=== PATIENT | female | born 1965 | race Caucasian/White ===

== ENCOUNTER 2016-11-01 19:18 | Emergency (ER) | payer OTHER ==
[~2016-11-01] VITALS: Ht 165.1 cm; Wt 53.0 kg
[~2016-11-01 19:18] MED LIST: BACL10TA PO; FENT25DI TD; FLUO20SO3 PO; HYDR10TA16 PO; NEUR100C PO; PERC10TA27 PO; XANA1TAB6 PO
[2016-11-01 19:27] VITALS: BP 150/81; PULSE 81; RESP 16; TEMP 98.2; O2SAT 98
--- NOTE | 2016-11-01 20:04 | PD ---
HPI Chief Complaint: Psychiatric Symptoms Time Seen by Provider: 20:03 Travel History International Travel<30 days: No Contact w/Intl Traveler<30days: No Traveled to known affect area: No History of Present Illness HPI 51-year-old female with history of MS presents to [facility] for evaluation under Nails act. Patient states she has been increasingly depressed and frustrated as her MS progressively gets worse. She is followed by Dr. Jones and has tried a new medication that helped for 2-3 days. She is waiting for the medication again and her symptoms continue to worsen. Dr. Jones is aware. Patient states that today she tried to drink some alcohol and she did some cocaine. She states that she had just become "fed up" and wanted to end her life. She states that she is tired of being in pain. She has been taking her pain medications more often and they are ordered. States that this is to control her pain not an attempt to overdose. Does not have an active plan for suicide at this time. She has no other symptoms to report. PFSH Past Medical History Arthritis: No Autoimmune Disease: No Blood Disorders: No Anxiety: Yes Depression: Yes Heart Rhythm Problems: No Cancer: No Cardiovascular Problems: No High Cholesterol: No Chemotherapy: No Chest Pain: No Congestive Heart Failure: No Diabetes: No Diminished Hearing: No Endocrine: No Gastrointestinal Disorders: No Genitourinary: No Hiatal Hernia: No Hypertension: No Immune Disorder: No Implanted Vascular Access Dvce: No Kidney Stones: No Medical other: Yes (PT HAS MULTIPLE SCLEROSIS) Musculoskeletal: Yes (ARTHRITIS; NECK AND BACK PAIN) Neurologic: Yes (MS 2008) Psychiatric: No Reproductive: Yes (SALPINGOECTOMY(ECTOPIC PREG)) Respiratory: No Immunizations Current: No Myocardial Infarction: No Pneumonia: Yes Radiation Therapy: No Renal Failure: Yes (stage 2 decrease kidney funtion) Sickle Cell Disease: No Thyroid Disease: No Tetanus Vaccination: Unknown Influenza Vaccination: No ?: Not Menopausal: Yes : 2 Para: 0 Miscarriage: 1 : 1 Ectopic : Yes (1 ectopic, 1 miscarriage) Dilation and Curettage (D&C): No Tubal Ligation: Yes (TUBAL ) Past Surgical History AICD: No Body Medical Devices: PLATE NECK Gynecologic Surgery: Yes (ECTOPIC PREG ) Neurologic Surgery: Yes (ANTERIOR CERVICAL FUSION) Pacemaker: No Other Surgery: Yes (NECK SURGERY 2 MONTHS AGO) Social History Alcohol Use: No Tobacco Use: Yes (1 PPD ) Substance Use: Yes (hx cocaine use) Allergies-Medications (Allergen,Severity, Reaction): Coded Allergies: *MDRO Multi-Drug Resistant Organism (Verified Allergy, Unknown, 11/01/16) MRSA 2012 & 2013 Reported Meds & Prescriptions Reported Meds & Active Scripts Active Reported Valium (Diazepam) 10 Mg Tab 10 Mg PO HS PRN Wellbutrin SR 12 HR (Bupropion HCl) 150 Mg Tab 150 Mg PO Q12HR Ritalin LA 24 HR (Methylphenidate HCl) 10 Mg Caper 10 Mg PO DAILY Lortab (Hydrocodone-Acetaminophen) 10-325 Mg Tab 1 Tab PO Q4H PRN Gabapentin 300 Mg Cap 200 Mg PO HS Prozac (Fluoxetine HCl) 40 Mg Cap 40 Mg PO HS Fentanyl Patch 72 HR (Fentanyl) 25 Mcg/Hr Patch 25 Mcg T-DERMAL Q72H Baclofen 10 Mg Tab 10 Mg PO Q8HR PRN Xanax (Alprazolam) 1 Mg Tab 1 Mg PO Q6H PRN Review of Systems Except as stated in HPI: all other systems reviewed are Neg Physical Exam Narrative GENERAL: Well-nourished female patient, lying in bed in no acute distress SKIN: Warm and dry. HEAD: Atraumatic. Normocephalic. EYES: Pupils equal and round. No scleral icterus. No injection or drainage. ENT: No nasal bleeding or discharge. Mucous membranes pink and moist. NECK: Trachea midline. No JVD. CARDIOVASCULAR: Regular rate and rhythm. No murmur appreciated. RESPIRATORY: No accessory muscle use. Clear to auscultation. Breath sounds equal bilaterally. GASTROINTESTINAL: Abdomen soft, non-tender, nondistended. Hepatic and splenic margins not palpable. MUSCULOSKELETAL: No obvious deformities. No clubbing. No cyanosis. No edema. NEUROLOGICAL: Awake and alert. No obvious cranial nerve deficits. . Normal speech. Data Data Last Documented VS Vital Signs Date Time Temp Pulse Resp B/P Pulse Ox O2 Delivery O2 Flow Rate FiO2 11/02/16 02:00 81 20 124/78 98 Room Air 11/01/16 22:56 98.5 Orders Complete Blood Count With Diff (11/01/16 20:02) Basic Metabolic Panel (Bmp) (11/01/16 20:02) Urinalysis - C+S If Indicated (11/01/16 20:02) Psych Screen (11/01/16 20:02) Drug Screen, Random Urine (11/01/16 20:02) Alcohol (Ethanol) (11/01/16 20:02) Bismuth Liq (Pepto-Bismol Liq) (11/01/16 22:00) Potassium Chloride (Kcl) (11/01/16 22:00) Ondansetron Odt (Zofran Odt) (11/01/16 22:30) Diet Regular Basic (11/02/16 Breakfast) Labs Laboratory Tests Test 11/01/16 20:15 White Blood Count 5.2 TH/MM3 Red Blood Count 3.54 MIL/MM3 Hemoglobin 11.0 GM/DL Hematocrit 31.6 % Mean Corpuscular Volume 89.4 FL Mean Corpuscular Hemoglobin 31.2 PG Mean Corpuscular Hemoglobin 34.9 % Concent Red Cell Distribution Width 14.1 % Platelet Count 316 TH/MM3 Mean Platelet Volume 7.1 FL Neutrophils (%) (Auto) 70.6 % Lymphocytes (%) (Auto) 21.0 % Monocytes (%) (Auto) 5.7 % Eosinophils (%) (Auto) 2.3 % Basophils (%) (Auto) 0.4 % Neutrophils # (Auto) 3.7 TH/MM3 Lymphocytes # (Auto) 1.1 TH/MM3 Monocytes # (Auto) 0.3 TH/MM3 Eosinophils # (Auto) 0.1 TH/MM3 Basophils # (Auto) 0.0 TH/MM3 CBC Comment DIFF FINAL Differential Comment Urine Color LIGHT-YELLOW Urine Turbidity CLEAR Urine pH 8.0 Urine Specific [place] 1.004 Urine Protein NEG mg/dL Urine Glucose (UA) NEG mg/dL Urine Ketones NEG mg/dL Urine Occult Blood NEG Urine Nitrite NEG Urine Bilirubin NEG Urine Urobilinogen LESS THAN 2.0 MG/DL Urine Leukocyte Esterase NEG Urine WBC LESS THAN 1 /hpf Urine Squamous Epithelial 1 /hpf Cells Microscopic Urinalysis Comment CULT NOT INDICATED Sodium Level 137 MEQ/L Potassium Level 3.0 MEQ/L Chloride Level 101 MEQ/L Carbon Dioxide Level 27.5 MEQ/L Anion Gap 9 MEQ/L Blood Urea Nitrogen 6 MG/DL Creatinine 0.80 MG/DL Estimat Glomerular Filtration 75 ML/MIN Rate Random Glucose 97 MG/DL Calcium Level 8.3 MG/DL Urine Opiates Screen NEG Urine Barbiturates Screen NEG Urine Amphetamines Screen NEG Urine Benzodiazepines Screen POS Urine Cocaine Screen POS Urine Cannabinoids Screen NEG Ethyl Alcohol Level LESS THAN 3 MG/DL MDM Medical Decision Making Medical Screen Exam Complete: Yes Emergency Medical Condition: Yes Medical Record Reviewed: Yes Differential Diagnosis Mood disorder versus personality disorder versus adjustment reaction disorder Narrative Course 51-year-old female presents to the emergency department under Nails act for psychiatric evaluation. Patient appears without distress. Lab work is without acute concern. Patient does have hypokalemia 3.0 this is repleted here in the emergency department. Toxicology is positive for cocaine and benzodiazepine. Urinalysis is negative. Patient is medically cleared to undergo psychiatric screening for further evaluation and disposition. Mental health screening discussed with the patient. Psychiatric screen ordered. Diagnosis Primary Impression: Adjustment disorder with depressed mood Additional Impressions: Suicidal thoughts Multiple sclerosis Condition: Stable Izabel Ren Nov 01, 2016 20:03
[2016-11-01 20:54] LABS: BLOOD, URINE NEG (NEG); GLUCOSE,URINE NEG (NEG); KETONE, URINE NEG (NEG); NITRITE,URINE NEG (NEG); SQUAMOUS EPITHELIAL CELL URINE 1 /hpf (0-5); URINE COLOR LIGHT-YELLOW (YELLW/STRAW)
[2016-11-01 20:55] LABS: COMMENT (UR) CULT NOT INDICATED; CULTURE IF INDICATED CULT NOT INDICATED
[2016-11-01 21:00] LABS: AMPHETAMINE, URINE NEG (NEG); BARBITURATES, URINE NEG (NEG); COCAINE, URINE POS (NEG)
[2016-11-01 21:14] LABS: AUTOMATED NEUTROPHIL # 3.7 TH/MM3 (1.8-7.7); BASOPHIL % 0.4 % (0.0-2.0); EOSINOPHIL # 0.1 TH/MM3 (0-0.4); EOSINOPHIL % 2.3 % (0.0-4.0); HEMATOCRIT 31.6 % (35.0-46.0); HEMO FLAGS DIFF FINAL; LYMPHOCYTE # 1.1 TH/MM3 (1.0-4.8); MEAN CELL VOLUME 89.4 FL (80.0-100.0); MEAN CORPUSCULAR HEMOGLOBIN 31.2 PG (27.0-34.0); MEAN CORPUSCULAR HGB CONC 34.9 % (32.0-36.0); MONO % 5.7 % (0.0-8.0); NEUT % 70.6 % (16.0-70.0); PLATELET COUNT 316 TH/MM3 (150-450); RED BLOOD COUNT 3.54 MIL/MM3 (4.00-5.30); RED CELL DISTRIBUTION WIDTH 14.1 % (11.6-17.2); WHITE BLOOD COUNT 5.2 TH/MM3 (4.0-11.0)
[2016-11-01 21:20] LABS: CHLORIDE 101 MEQ/L (98-107); SODIUM (NA) 137 MEQ/L (136-145)
[2016-11-01 21:33] LABS: ANION GAP 9 MEQ/L (5-15); BICARBONATE 27.5 MEQ/L (21.0-32.0); BLOOD UREA NITROGEN 6 MG/DL (7-18); GLOMERULAR FILTRATION RATE 75 ML/MIN (>89)
[2016-11-01] MEDS ORDERED: BISMUTH SUBSALICYLATE 240 ML BTL PO ONE (22:00)
[2016-11-01] MEDS ORDERED: POTASSIUM CHLORIDE 10 MEQ CONTROLLED RELEASE TAB PO ONE (22:00)
[2016-11-01 22:12] VITALS: BP 124/87; PULSE 92; RESP 16; TEMP 98.5; O2SAT 97
[2016-11-01] MEDS ORDERED: ONDANSETRON ODT 4 MG TAB PO ONE (22:30)
[2016-11-01] MEDS ORDERED: HYDR-3535 PO (22:54)
[2016-11-01] MEDS ORDERED: RITA10CA PO (22:54)
[2016-11-01] MEDS ORDERED: GABA300C5 PO (22:54)
[2016-11-01] MEDS ORDERED: FENT25DI T-DERMAL (22:54)
[2016-11-01] MEDS ORDERED: PROZ40CA PO (22:54)
[2016-11-01] MEDS ORDERED: BACL10TA PO (22:54)
[2016-11-01] MEDS ORDERED: DIAZ10 PO (22:54)
[2016-11-01] MEDS ORDERED: BUPR150CR PO (22:54)
[2016-11-01] MEDS ORDERED: XANA1TAB2 PO (22:54)
[2016-11-01 22:56] VITALS: BP 137/82; PULSE 83; RESP 19; TEMP 98.5; O2SAT 98
[2016-11-02 02:00] VITALS: BP 124/78; PULSE 81; RESP 20; O2SAT 98
[2016-11-02 06:16] VITALS: BP 133/75; PULSE 86; RESP 18; O2SAT 98
[2016-11-02 10:36] VITALS: BP 137/66; PULSE 87; RESP 17; O2SAT 95
--- NOTE | 2016-11-02 13:33 | PD ---
History of Present Illness Chief Complaint: Psychiatric Symptoms Time Seen by Provider: 12:30 Travel History International Travel<30 Days: No Contact w/Intl Traveler<30days: No Known affected area: No Legal Status Legal Status: Nails Act Nails Act Signed By: Afua Goldsmith Nails Act Comment: 2016 @ 183 History of Present Illness: History of Present Illness HPI 51-year-old female with history of depression and anxiety, currently under outpatient care with Dr. Harrington, who MS presents to ED under Nails act. As per the reports" Sheela took several narcotics in an attempt to kill herself". Patient is seen in [facility]. She has presented no behavioral concerns and no suicidality. She states that she has been having increase in symptoms associated with a MS flare up . She has been under a new medication but became frustrated when she was not feeling better. She admits to having taken extra medication but denies that it was as an intent to harm herself. States " I snapped and I took extra medication but I wasn't trying to hurt myself". I called my sister and then I called the police". Patient goes on to say that she has been attempting to get back into counseling as well as in a support group to help her cope better with her chronic illness. She is alert, oriented, engaging and cooperative. No hallucinations, no delusions and no fátima. She denies suicidal or homicidal ideation. Mood is depressed and anxious. Patient is positive for cocaine and benzos. As per EMR she was evaluated by Dr. Arnold in 2013 after she was placed under a BA s/p overdose on Valium. She has had no inpatient psychiatric hospitalizations. [facility] Past Medical History Arthritis: No Autoimmune Disease: No Blood Disorders: No Anxiety: Yes Depression: Yes Heart Rhythm Problems: No Cancer: No Cardiovascular Problems: No High Cholesterol: No Chemotherapy: No Chest Pain: No Congestive Heart Failure: No Diabetes: No Diminished Hearing: No Endocrine: No Gastrointestinal Disorders: No Genitourinary: No Hiatal Hernia: No Hypertension: No Immune Disorder: No Implanted Vascular Access Dvce: No Kidney Stones: No Medical other: Yes (PT HAS MULTIPLE SCLEROSIS) Musculoskeletal: Yes (ARTHRITIS; NECK AND BACK PAIN) Neurologic: Yes (MS 2008) Psychiatric: No Reproductive: Yes (SALPINGOECTOMY(ECTOPIC PREG)) Respiratory: No Immunizations Current: No Myocardial Infarction: No Pneumonia: Yes Radiation Therapy: No Renal Failure: Yes (stage 2 decrease kidney funtion) Sickle Cell Disease: No Thyroid Disease: No Tetanus Vaccination: Unknown Influenza Vaccination: No ?: Not Menopausal: Yes : 2 Para: 0 Miscarriage: 1 : 1 Ectopic : Yes (1 ectopic, 1 miscarriage) Dilation and Curettage (D&C): No Tubal Ligation: Yes (TUBAL ) Past Surgical History AICD: No Body Medical Devices: PLATE NECK Gynecologic Surgery: Yes (ECTOPIC PREG ) Neurologic Surgery: Yes (ANTERIOR CERVICAL FUSION) Pacemaker: No Other Surgery: Yes (NECK SURGERY 2 MONTHS AGO) Psychiatric History Psychiatric History Hx Psychiatric Treatment: In outpatietn treatment w Dr. Harrington History of Inpatient Treatment: No Guns or firearms in home: No Social History Single female . Lives by herself Hx Alcohol Use: No Hx Tobacco Use: Yes (1 PPD ) Hx Substance Use: Yes (hx cocaine use) Substance Use Type: Benzos (Valium,Xanax), Cocaine Hx of Substance Use Treatment: No Family Psychiatric History Negative Allergies-Medications (Allergen,Severity, Reaction): Coded Allergies: *MDRO Multi-Drug Resistant Organism (Verified Allergy, Unknown, 11/01/16) MRSA 2012 & 2013 Reported Meds & Prescriptions Reported Meds & Active Scripts Active Reported Valium (Diazepam) 10 Mg Tab 10 Mg PO HS PRN Wellbutrin SR 12 HR (Bupropion HCl) 150 Mg Tab 150 Mg PO Q12HR Ritalin LA 24 HR (Methylphenidate HCl) 10 Mg Caper 10 Mg PO DAILY Lortab (Hydrocodone-Acetaminophen) 10-325 Mg Tab 1 Tab PO Q4H PRN Gabapentin 300 Mg Cap 200 Mg PO HS Prozac (Fluoxetine HCl) 40 Mg Cap 40 Mg PO HS Fentanyl Patch 72 HR (Fentanyl) 25 Mcg/Hr Patch 25 Mcg T-DERMAL Q72H Baclofen 10 Mg Tab 10 Mg PO Q8HR PRN Xanax (Alprazolam) 1 Mg Tab 1 Mg PO Q6H PRN Review of Systems Constitutional: COMPLAINS OF: Weight loss Endocrine: DENIES: Abnorml menstrual pattern, Heat/cold intolerance, Polydipsia , Polyuria, Polyphagia Eyes: DENIES: Blurred vision, Diplopia, Eye inflammation, Eye pain, Vision loss , Photosensitivity, Double Vision Ears, nose, mouth, throat: DENIES: Tinnitus, Hearing loss, Vertigo, Nasal discharge, Oral lesions, Throat pain, Hoarseness, Ear Pain, Running Nose, Epistaxis, Sinus Pain, Toothache, Odynophagia Respiratory: DENIES: Apneas, Cough, Snoring, Wheezing, Hemoptysis, Sputum production, Shortness of breath Cardiovascular: DENIES: Chest pain, Palpitations, Syncope, Dyspnea on Exertion , PND, Lower Extremity Edema, Orthopnea, Claudication Gastrointestinal: DENIES: Abdominal pain, Black stools, Bloody stools, Constipation, Diarrhea, Nausea, Vomiting, Difficulty Swallowing, Anorexia Genitourinary: DENIES: Abnormal vaginal bleeding, Dysmenorrhea, Dyspareunia, Sexual dysfunction, Urinary frequency, Urinary incontinence, Urgency, Hematuria , Dysuria, Nocturia, Vaginal discharge Musculoskeletal: COMPLAINS OF: Muscle aches, Back pain, Neck pain Integumentary: DENIES: Abnormal pigmentation, Pruritus, Rash, Nail changes, Breast masses, Breast skin changes, Nipple discharge Hematologic/lymphatic: DENIES: Bruising, Lymphadenopathy Neurologic: COMPLAINS OF: Tremor, Poor Balance Psychiatric: COMPLAINS OF: Anxiety, Depression Exam Alert: Yes [place]: Person (ox4) Mood: Anxious Affect: Euthymic Speech: Clear, Logical Eye Contact: Normal Memory Intact: Comment (no impairmetn) Hallucinations: Other (negative) Delusions: No Suicidal: Ideation (denies any) Homicidal: Ideation (denies any) Insight/Judgement Fair. Not impaired. [facility] Medical Decision Making Medical Record Reviewed: Yes Assessment/Plan 51 year old female under a BA . She called the police after she took extra medication in an effort to manage her pain. Patient at this time is denying that this was a suicidal attempt and denies any suicidal ideation, intent or plan. She requests discharge and has made plans to contact Dr. nikkie beasley upon her discharge. She will also be staying with her boyfriend. At this time she does not meet BA criteria. Patient will be discharged w instructions to follow up with her outpatient provider. I have contacted Dr. Beasley with patient's verbal consent to inform him of this ed visit. Orders Complete Blood Count With Diff (11/01/16 20:02) Basic Metabolic Panel (Bmp) (11/01/16 20:02) Urinalysis - C+S If Indicated (11/01/16 20:02) Psych Screen (11/01/16 20:02) Drug Screen, Random Urine (11/01/16 20:02) Alcohol (Ethanol) (11/01/16 20:02) Bismuth Liq (Pepto-Bismol Liq) (11/01/16 22:00) Potassium Chloride (Kcl) (11/01/16 22:00) Ondansetron Odt (Zofran Odt) (11/01/16 22:30) Diet Regular Basic (11/02/16 Breakfast) Diet Regular Basic (11/02/16 Lunch) Results Vital Signs Date Time Temp Pulse Resp B/P Pulse Ox O2 Delivery O2 Flow Rate FiO2 11/02/16 10:36 87 17 137/66 95 11/02/16 06:16 86 18 133/75 98 Room Air 11/02/16 02:00 81 20 124/78 98 Room Air 11/01/16 22:56 98.5 83 19 137/82 98 Room Air 11/01/16 22:12 98.5 92 16 124/87 97 Room Air 11/01/16 19:27 98.2 81 16 150/81 98 Laboratory Tests Test 11/01/16 20:15 White Blood Count 5.2 Red Blood Count 3.54 Hemoglobin 11.0 Hematocrit 31.6 Mean Corpuscular Volume 89.4 Mean Corpuscular Hemoglobin 31.2 Mean Corpuscular Hemoglobin 34.9 Concent Red Cell Distribution Width 14.1 Platelet Count 316 Mean Platelet Volume 7.1 Neutrophils (%) (Auto) 70.6 Lymphocytes (%) (Auto) 21.0 Monocytes (%) (Auto) 5.7 Eosinophils (%) (Auto) 2.3 Basophils (%) (Auto) 0.4 Neutrophils # (Auto) 3.7 Lymphocytes # (Auto) 1.1 Monocytes # (Auto) 0.3 Eosinophils # (Auto) 0.1 Basophils # (Auto) 0.0 CBC Comment DIFF FINAL Differential Comment Urine Color LIGHT-YELLOW Urine Turbidity CLEAR Urine pH 8.0 Urine Specific [place] 1.004 Urine Protein NEG Urine Glucose (UA) NEG Urine Ketones NEG Urine Occult Blood NEG Urine Nitrite NEG Urine Bilirubin NEG Urine Urobilinogen LESS THAN 2.0 Urine Leukocyte Esterase NEG Urine WBC LESS THAN 1 Urine Squamous Epithelial 1 Cells Microscopic Urinalysis Comment CULT NOT INDICATED Sodium Level 137 Potassium Level 3.0 Chloride Level 101 Carbon Dioxide Level 27.5 Anion Gap 9 Blood Urea Nitrogen 6 Creatinine 0.80 Estimat Glomerular Filtration 75 Rate Random Glucose 97 Calcium Level 8.3 Urine Opiates Screen NEG Urine Barbiturates Screen NEG Urine Amphetamines Screen NEG Urine Benzodiazepines Screen POS Urine Cocaine Screen POS Urine Cannabinoids Screen NEG Ethyl Alcohol Level LESS THAN 3 Diagnosis Primary Impression: Adjustment disorder with depressed mood Additional Impression: Multiple sclerosis Ruled Out: Suicidal thoughts Psychiatrically Cleared: Yes Referrals: Otto Gilbert MD (PCP) Departure Forms: Tests/Procedures Patient Instructions: General Instructions, Stress (ED) Additional Instructions: FOLLOW UP WITH YOUR CURRENT TREATMENT PROVIDERS Disposition: 01 DISCHARGE HOME Condition: Stable Problem Qualifiers Ivy Landry Nov 02, 2016 13:33
== END 2016-11-02 13:49 | disposition home or self-care (01) ==
LOC: NEPB 19:18 → NEPJ 11-02 13:49
DX: F43.21 Adjustment disorder with depressed mood (principal); G35 Multiple sclerosis; E87.6 Hypokalemia; F17.200 Nicotine dependence, unspecified, uncomplicated; Z87.39 Personal history of other diseases of the musculoskeletal system and connective tissue; Z87.01 Personal history of pneumonia (recurrent); Z86.59 Personal history of other mental and behavioral disorders; Z87.448 Personal history of other diseases of urinary system
CPT/HCPCS: 80048; 80307; 80320; 81001; 85025; 99283

== ENCOUNTER 2017-02-23 08:52 | Emergency (ER) | payer OTHER ==
[~2017-02-23] VITALS: Ht 165.1 cm; Wt 53.8 kg
[~2017-02-23 08:52] MED LIST changes: +BUPR150CR PO; +DIAZ10 PO; +FENT25DI T-DERMAL; -FENT25DI TD; -FLUO20SO3 PO; +GABA300C5 PO; +HYDR-3535 PO; -NEUR100C PO; -PERC10TA27 PO; +PROZ40CA PO; +RITA10CA PO; +XANA1TAB2 PO; -XANA1TAB6 PO
[2017-02-23 08:57] VITALS: BP 150/81; PULSE 86; RESP 16; TEMP 98.4; O2SAT 98
--- NOTE | 2017-02-23 09:20 | PD ---
HPI Chief Complaint: Musculoskeletal Complaint Time Seen by Provider: 09:02 Travel History International Travel<30 days: No Contact w/Intl Traveler<30days: No Traveled to known affect area: No History of Present Illness HPI 51 y/o female presents with right lower groin pain over past couple days. She notes with her MS typical hesitancy with urination but denies other complaints. pain is pressure. denies modifying factors. denies std risk factors. notes no improvement with home pain meds. denies migration of pain. PFSH Past Medical History Arthritis: No Autoimmune Disease: No Blood Disorders: No Anxiety: Yes Depression: Yes Heart Rhythm Problems: No Cancer: No Cardiovascular Problems: No High Cholesterol: No Chemotherapy: No Chest Pain: No Congestive Heart Failure: No Diabetes: No Diminished Hearing: No Endocrine: No Gastrointestinal Disorders: No Genitourinary: No Hiatal Hernia: No Hypertension: No Immune Disorder: No Implanted Vascular Access Dvce: No Kidney Stones: No Medical other: Yes (PT HAS MULTIPLE SCLEROSIS) Musculoskeletal: Yes (ARTHRITIS; NECK AND BACK PAIN) Neurologic: Yes (MS 2007) Psychiatric: No Reproductive: Yes (SALPINGOECTOMY(ECTOPIC PREG)) Respiratory: No Immunizations Current: No Myocardial Infarction: No Pneumonia: Yes Radiation Therapy: No Renal Failure: Yes (stage 2 decrease kidney funtion) Sickle Cell Disease: No Thyroid Disease: No ?: Not Menopausal: Yes : 2 Para: 0 Miscarriage: 1 : 1 Ectopic : Yes (1 ectopic, 1 miscarriage) Dilation and Curettage (D&C): No Tubal Ligation: Yes (TUBAL ) Past Surgical History AICD: No Body Medical Devices: PLATE NECK Gynecologic Surgery: Yes (ECTOPIC PREG ) Neurologic Surgery: Yes (ANTERIOR CERVICAL FUSION) Pacemaker: No Other Surgery: Yes (NECK SURGERY 2 MONTHS AGO) Social History Alcohol Use: No Tobacco Use: Yes (1 PPD ) Substance Use: Yes (hx cocaine use) Allergies-Medications (Allergen,Severity, Reaction): Coded Allergies: *MDRO Multi-Drug Resistant Organism (Verified Allergy, Unknown, 02/23/17) MRSA 2012 & 2013 Reported Meds & Prescriptions Reported Meds & Active Scripts Active Reported Valium (Diazepam) 10 Mg Tab 10 Mg PO HS PRN Wellbutrin SR 12 HR (Bupropion HCl) 150 Mg Tab 150 Mg PO Q12HR Lortab (Hydrocodone-Acetaminophen) 10-325 Mg Tab 1 Tab PO Q4H PRN Gabapentin 300 Mg Cap 200 Mg PO HS Prozac (Fluoxetine HCl) 40 Mg Cap 40 Mg PO HS Fentanyl Patch 72 HR (Fentanyl) 25 Mcg/Hr Patch 25 Mcg T-DERMAL Q72H Baclofen 10 Mg Tab 10 Mg PO Q8HR PRN Xanax (Alprazolam) 1 Mg Tab 1 Mg PO Q6H PRN Review of Systems Except as stated in HPI: all other systems reviewed are Neg Physical Exam Narrative GENERAL: Well-nourished, well-developed patient. well appearing SKIN: Warm and dry. HEAD: Normocephalic and atraumatic. EYES: No injection or drainage. ENT: No nasal drainage noted. NECK: Supple, trachea midline. CARDIOVASCULAR: Regular rate and rhythm RESPIRATORY: no increased effort. No accessory muscle use. GASTROINTESTINAL: Abdomen soft, ttp in right lower abdomen of pelvis, nondistended. EXTREMITIES: No edema. NEUROLOGICAL: Awake and alert. Motor and sensory grossly within normal limits. Normal speech. Data Data Last Documented VS Vital Signs Date Time Temp Pulse Resp B/P Pulse Ox O2 Delivery O2 Flow Rate FiO2 02/23/17 08:57 98.4 86 16 150/81 98 Orders Urinalysis - C+S If Indicated (02/23/17 09:08) Ct Abd/Pel W/O Iv Contrast (02/23/17 ) Ketorolac Inj (Toradol Inj) (02/23/17 09:30) Labs Laboratory Tests Test 02/23/17 09:15 Urine Collection Type CLEAN CATCH Urine Color YELLOW Urine Turbidity CLEAR Urine pH 5.5 Urine Specific [place] 1.006 Urine Protein NEG mg/dL Urine Glucose (UA) NEG mg/dL Urine Ketones NEG mg/dL Urine Occult Blood NEG Urine Nitrite NEG Urine Bilirubin NEG Urine Leukocyte Esterase NEG Urine WBC 0-2 /hpf Urine Squamous Epithelial > 8 /hpf Cells Microscopic Urinalysis Comment CULT NOT INDICATED Urine Collection Time 09:15 [facility] Medical Decision Making Medical Screen Exam Complete: Yes Emergency Medical Condition: Yes Medical Record Reviewed: Yes (pmh confirmed) Interpretation(s) ct no acute intra-abdominal, lumbar degenerative changes-given copy ua no uti or blood Differential Diagnosis strain, uti, stone, cyst... Narrative Course will check ua, ct and dose with toradol and reeval ed workup no acute, Patient denies any new complaints, all questions answered. Patient knows that follow up is incumbent on them and to return to the emergency room immediately if new or worsening symptoms develop. Patient given strict return precautions, vitals reviewed and are normal, agrees to further workup as an outpatient. given copy of ct for follow up Diagnosis Primary Impression: Abdominal pain Qualified Code: R10.31 - Right lower quadrant abdominal pain Patient Instructions: General Instructions Additional Instructions: return as needed, follow with primary Med/Other Pt SpecificInfo: No Change to Meds Disposition: 01 DISCHARGE HOME Condition: Stable Ciera Pollock MD Feb 23, 2017 09:20
[2017-02-23] MEDS ORDERED: KETOROLAC TROMETHAMINE 60 MG/2 ML (IM) VIAL IM ONE (09:30)
[2017-02-23 09:36] LABS: BLOOD, URINE NEG (NEG); GLUCOSE,URINE NEG (NEG); KETONE, URINE NEG (NEG); NITRITE,URINE NEG (NEG); PH, URINE 5.5 (5.0-8.5)
[2017-02-23 09:44] LABS: METHOD OF COLLECTION CLEAN CATCH; URINE COLOR YELLOW (YELLW/STRAW)
[2017-02-23 09:45] LABS: SQUAMOUS EPITHELIAL CELL URINE > 8 /hpf (0-5); WBC, URINE 0-2 /hpf (0-5)
[2017-02-23 09:46] LABS: COMMENT (UR) CULT NOT INDICATED; CULTURE IF INDICATED CULT NOT INDICATED
--- NOTE | 2017-02-23 10:31 | RADHPO ---
EXAM DATE/TIME: 02/23/2017 09:33 [place] COMPARISON: No previous studies available for comparison. INDICATIONS : Right groin pain, evaluate for renal stones. ORAL CONTRAST: No oral contrast ingested. RADIATION DOSE: 6.39 CTDIvol (mGy) MEDICAL HISTORY : None SURGICAL HISTORY : Tubal ligation. ENCOUNTER: Initial ACUITY: 1 week PAIN SCALE: 3/10 LOCATION: Right lower quadrant TECHNIQUE: Volumetric scanning of the abdomen and pelvis was performed. Using automated exposure control and ad justment of the mA and/or kV according to patient size, radiation dose was kept as low as reasonably achievable to obtain optimal diagnostic quality images. FINDINGS: LOWER LUNGS: The visualized lower lungs are clear. LIVER: Homogeneous density without lesion. There is no dilation of the biliary tree. No calcified gallston es. SPLEEN: Normal size without lesion. PANCREAS: Within normal limits. KIDNEYS: Normal in size and shape. There is no mass, stone, or hydronephrosis. ADRENAL GLANDS: Within normal limits. VASCULAR: There is no aortic aneurysm. BOWEL/MESENTERY: No evidence of bowel dilatation. No free air or free fluid. Appendix within normal limits. ABDOMINAL WALL: Within normal limits. RETROPERITONEUM: There is no lymphadenopathy. BLADDER: No wall thickening or mass. REPRODUCTIVE: Within normal limits. INGUINAL: There is no lymphadenopathy or hernia. MUSCULOSKELETAL: Moderate bony degenerative findings of the lower lumbar spine facet joints. CONCLUSION: Degenerative findings of the lumbar spine. No acute findings in the abdomen and pelvis. No renal or u reteral calculi identified. No hydronephrosis. Jose Rosales MD on February 23, 2017 at 10:25 Board Certified Radiologist. This report was verified electronically.
== END 2017-02-23 11:03 | disposition home or self-care (01) ==
LOC: PHED 08:52
DX: R10.31 Right lower quadrant pain (principal); R39.11 Hesitancy of micturition; G35 Multiple sclerosis; N18.2 Chronic kidney disease, stage 2 (mild); F17.200 Nicotine dependence, unspecified, uncomplicated; Z86.59 Personal history of other mental and behavioral disorders; Z87.39 Personal history of other diseases of the musculoskeletal system and connective tissue
CPT/HCPCS: 74176; 81001; 96372; 99285; J1885

== ENCOUNTER 2017-06-19 13:37 | Emergency (ER) | payer OTHER ==
[~2017-06-19] VITALS: Ht 170.2 cm; Wt 70.0 kg
[~2017-06-19 13:37] MED LIST changes: -RITA10CA PO
[2017-06-19 13:46] VITALS: BP 128/86; PULSE 97; RESP 16; TEMP 99.1; O2SAT 97
[2017-06-19] MEDS ORDERED: FENT25DI T-DERMAL (14:00)
[2017-06-19] MEDS ORDERED: ACETAMINOPHEN/HYDROcodone 325 MG/5 MG TAB PO ONE (14:00)
[2017-06-19] MEDS ORDERED: TYLETAB34 PO (14:00)
--- NOTE | 2017-06-19 14:08 | PD ---
HPI Chief Complaint: Medication Refill Request Time Seen by Provider: 13:43 Travel History International Travel<30 days: No Contact w/Intl Traveler<30days: No Traveled to known affect area: No History of Present Illness HPI The patient was seen and examined in the presence of the nurse. This patient complains of leg pain. She's had chronic leg pain for many years due to MS. She takes heavy-duty narcotics and says that she lost them a few days ago. She says she put a call to Dr. Jones who prescribes but no one returned her call. No acute injury or fever. She called paramedics who brought her to the emergency room. Severity is reported as moderate. PFSH Past Medical History Arthritis: No Autoimmune Disease: No Blood Disorders: No Anxiety: Yes Depression: Yes Heart Rhythm Problems: No Cancer: No Cardiovascular Problems: No High Cholesterol: No Chemotherapy: No Chest Pain: No Congestive Heart Failure: No Diabetes: No Diminished Hearing: No Endocrine: No Gastrointestinal Disorders: No Genitourinary: No Hiatal Hernia: No Hypertension: No Immune Disorder: No Implanted Vascular Access Dvce: No Kidney Stones: No Medical other: Yes (PT HAS MULTIPLE SCLEROSIS) Musculoskeletal: Yes (ARTHRITIS; NECK AND BACK PAIN) Neurologic: Yes (MS 2008) Psychiatric: No Reproductive: Yes (SALPINGOECTOMY(ECTOPIC PREG)) Respiratory: No Immunizations Current: No Myocardial Infarction: No Pneumonia: Yes Radiation Therapy: No Renal Failure: Yes (stage 2 decrease kidney funtion) Sickle Cell Disease: No Thyroid Disease: No Tetanus Vaccination: < 5 Years Influenza Vaccination: No ?: Not Menopausal: Yes : 2 Para: 0 Miscarriage: 1 : 1 Ectopic : Yes (1 ectopic, 1 miscarriage) Dilation and Curettage (D&C): No Tubal Ligation: Yes Past Surgical History AICD: No Body Medical Devices: PLATE NECK Gynecologic Surgery: Yes (ECTOPIC PREG ) Neurologic Surgery: Yes (ANTERIOR CERVICAL FUSION) Pacemaker: No Other Surgery: Yes (NECK SURGERY X2) Social History Alcohol Use: No Tobacco Use: Yes (09/27 PPD ) Substance Use: Yes (hx cocaine use) Allergies-Medications (Allergen,Severity, Reaction): Coded Allergies: *MDRO Multi-Drug Resistant Organism (Verified Allergy, Unknown, 06/19/17) MRSA 2012 & 2013 Reported Meds & Prescriptions Reported Meds & Active Scripts Active Tylenol-Codeine #3 (Acetaminophen-Codeine) 300-30 mg Tab 1 Tab PO Q6HR PRN Fentanyl Patch 72 HR (Fentanyl) 25 Mcg/Hr Patch 25 Mcg T-DERMAL Q72H Reported Valium (Diazepam) 10 Mg Tab 10 Mg PO HS PRN Wellbutrin SR 12 HR (Bupropion HCl) 150 Mg Tab 150 Mg PO Q12HR Lortab (Hydrocodone-Acetaminophen) 10-325 Mg Tab 1 Tab PO Q4H PRN Gabapentin 300 Mg Cap 200 Mg PO HS Prozac (Fluoxetine HCl) 40 Mg Cap 40 Mg PO HS Fentanyl Patch 72 HR (Fentanyl) 25 Mcg/Hr Patch 25 Mcg T-DERMAL Q72H Baclofen 10 Mg Tab 10 Mg PO Q8HR PRN Xanax (Alprazolam) 1 Mg Tab 1 Mg PO Q6H PRN Review of Systems General / Constitutional: No: Fever HENT: No: Headaches Cardiovascular: No: Chest Pain or Discomfort Respiratory: No: Cough Physical Exam Narrative Gen.: Disheveled unhappy thin female complaining of leg pain GASTROINTESTINAL: Abdomen soft, non-tender, nondistended. Positive bowel sounds. No hepato-splenomegaly, or palpable masses. No guarding. RESPIRATORY: Respiratory effort unlabored, no retractions or use of accessory muscles. Breath sounds are clear and symmetric. SKIN: Focused skin assessment reveals no rash or ulcers. Skin is warm and dry. Palpation shows no induration or nodules. Data Data Last Documented VS Vital Signs Date Time Temp Pulse Resp B/P (MAP) Pulse Ox O2 Delivery O2 Flow Rate FiO2 06/19/17 13:46 99.1 97 16 128/86 (100) 97 Orders Orders Acetamin-Hydrocod 325-5 Mg ([place] 5-325 (06/19/17 14:00) [facility] Medical Decision Making Medical Screen Exam Complete: Yes Emergency Medical Condition: Yes Medical Record Reviewed: Yes Differential Diagnosis Chronic pain syndrome, MS exacerbation, narcotic seeking behavior Narrative Course I have reviewed the patient's electronic medical record. Reviewed her recent hematology visit from a few weeks ago. Her vital signs are normal. She is having chronic leg pain and says she lost her narcotic medication. Going to write her 1 fentanyl patch and a dozen Tylenol 3 She'll need to get refills from her physician Diagnosis Primary Impression: Chronic leg pain Qualified Codes: M79.604 - Pain in right leg; M79.605 - Pain in left leg; G89.29 - Other chronic pain Additional Impression: Multiple sclerosis Additional Instructions: The patient was advised to follow up with their physician and return if they worsen. The patient was warned about potential sedation for the medications they will receive on prescription. Med/Other Pt SpecificInfo: Prescription(s) given Scripts Acetaminophen-Codeine (Tylenol-Codeine #3) 300-30 mg Tab 1 TAB PO Q6HR Y for PAIN, #12 TAB 0 Refills Prov: Edwardo Mooney MD 06/19/17 Fentanyl Patch 72 HR (Fentanyl Patch 72 HR) 25 Mcg/Hr Patch 25 MCG T-DERMAL Q72H for Pain Management, #1 PATCH 0 Refills Prov: Edwardo Mooney MD 06/19/17 Disposition: 01 DISCHARGE HOME Condition: Stable Edwardo Mooney MD Jun 19, 2017 14:08
[2017-06-19 14:20] VITALS: BP 103/65; PULSE 83; RESP 16; O2SAT 96
[2017-06-19 14:45] VITALS: BP 108/80; PULSE 78; RESP 14; O2SAT 98
== END 2017-06-19 15:05 | disposition home or self-care (01) ==
LOC: PHED 13:37
DX: M79.604 Pain in right leg (principal); M79.605 Pain in left leg; G89.29 Other chronic pain; G35 Multiple sclerosis; N19 Unspecified kidney failure; F17.200 Nicotine dependence, unspecified, uncomplicated; Z86.59 Personal history of other mental and behavioral disorders; Z87.39 Personal history of other diseases of the musculoskeletal system and connective tissue; Z86.69 Personal history of other diseases of the nervous system and sense organs
CPT/HCPCS: 99284

== ENCOUNTER 2017-10-12 15:15 | Emergency (ER) | payer OTHER, MEDICAID ==
[~2017-10-12] VITALS: Ht 165.1 cm; Wt 53.0 kg
[~2017-10-12 15:15] MED LIST changes: -BUPR150CR PO; +TYLETAB34 PO
[2017-10-12 15:27] VITALS: BP 114/69; PULSE 77; RESP 16; TEMP 99; O2SAT 96
[2017-10-12] MEDS ORDERED: HYDR-3583 PO (15:41)
[2017-10-12] MEDS ORDERED: BUPR300T PO (15:41)
[2017-10-12] MEDS ORDERED: RITA20TA PO (15:41)
[2017-10-12] MEDS ORDERED: FENT50DI T-DERMAL (15:41)
[2017-10-12] MEDS ORDERED: SODIUM CHLORIDE 0.9% FLUSH 10 ML FLUSH IVF PRN (16:00)
--- NOTE | 2017-10-12 16:00 | PD ---
HPI Chief Complaint: Fall Time Seen by Provider: 15:25 Travel History International Travel<30 days: No Contact w/Intl Traveler<30days: No Traveled to known affect area: No History of Present Illness HPI Patient states that she has been feeling shaky for the past few days about 0800 today she got shaky in the bathroom lost her balance in fell forward hitting her head. She states "I was not conscious for about an hour". She states she is very shaky has a history of MS, denies any focalized weakness, she states she also has a history of low back pain in his do for her chronic pain medicine which as her Lortab. Denies any chest pain shortness of breath abdominal pain nausea vomiting. She complains of a mild headache but the low back pain which as chronic for her as her chief complaint at this time. Denies any chest pain or loss of consciousness prior to the event. PFSH Past Medical History Anemia: Yes (chronic) Arthritis: No Autoimmune Disease: No Blood Disorders: No Anxiety: Yes Depression: Yes Heart Rhythm Problems: No Cancer: No Cardiovascular Problems: No High Cholesterol: No Chemotherapy: No Chest Pain: No Congestive Heart Failure: No Diabetes: No Diminished Hearing: No Endocrine: No Gastrointestinal Disorders: No Genitourinary: No Hiatal Hernia: No Hypertension: No Immune Disorder: No Implanted Vascular Access Dvce: No Kidney Stones: No Medical other: Yes (PT HAS MULTIPLE SCLEROSIS) Musculoskeletal: Yes (ARTHRITIS; NECK AND BACK PAIN) Neurologic: Yes (MS 2008) Psychiatric: No Reproductive: Yes (SALPINGOECTOMY(ECTOPIC PREG)) Respiratory: No Immunizations Current: No Myocardial Infarction: No Pneumonia: Yes Radiation Therapy: No Renal Failure: Yes (stage 2- decrease kidney funtion; denies) Sickle Cell Disease: No Thyroid Disease: No ?: Not Menopausal: Yes : 2 Para: 0 Miscarriage: 1 : 1 Ectopic : Yes (1 ectopic, 1 miscarriage) Tubal Ligation: Yes Past Surgical History AICD: No Body Medical Devices: PLATE NECK Gynecologic Surgery: Yes (ECTOPIC PREG ) Neurologic Surgery: Yes (ANTERIOR CERVICAL FUSION) Pacemaker: No Other Surgery: Yes (NECK SURGERY X2) Social History Alcohol Use: No Tobacco Use: Yes (09/27 PPD ) Substance Use: Yes (hx cocaine use) Allergies-Medications (Allergen,Severity, Reaction): Coded Allergies: *MDRO Multi-Drug Resistant Organism (Verified Allergy, Unknown, 10/12/17) MRSA 2012 & 2014 Reported Meds & Prescriptions Reported Meds & Active Scripts Active Reported Fentanyl Patch 72 HR (Fentanyl) 50 Mcg/Hr Patch 50 Mcg T-DERMAL Q72H Remove old patch when new one placed. Hydrocodone-Acetaminophen 10-325 mg Tab 1 Tab PO Q6H PRN Bupropion HCl ER 24 HR (Bupropion HCl) 300 Mg Tab 300 Mg PO DAILY Ritalin IR (Methylphenidate HCl) 20 Mg Tab 20 Mg PO DAILY Valium (Diazepam) 10 Mg Tab 10 Mg PO HS PRN Gabapentin 300 Mg Cap 400 Mg PO HS Prozac (Fluoxetine HCl) 40 Mg Cap 40 Mg PO HS Baclofen 10 Mg Tab 10 Mg PO Q8HR PRN Xanax (Alprazolam) 1 Mg Tab 1 Mg PO Q6H PRN Review of Systems Except as stated in HPI: all other systems reviewed are Neg Physical Exam Narrative GENERAL: Well-developed well-nourished in no obvious distress. SKIN: Focused skin assessment warm/dry. HEAD: Atraumatic. Normocephalic. No avnedaño signs no raccoons eyes, I do not appreciate a frontal hematoma. EYES: Pupils equal and round. No scleral icterus. No injection or drainage. ENT: No nasal bleeding or discharge. Mucous membranes pink and moist. NECK: Trachea midline. No JVD. CARDIOVASCULAR: Regular rate and rhythm. No murmur appreciated. RESPIRATORY: No accessory muscle use. Clear to auscultation. Breath sounds equal bilaterally. GASTROINTESTINAL: Abdomen soft, non-tender, nondistended. Hepatic and splenic margins not palpable. MUSCULOSKELETAL: No obvious deformities. No clubbing. No cyanosis. No edema. No midline CT or L-spine tenderness. NEUROLOGICAL: Awake and alert. No obvious cranial nerve deficits. Motor grossly within normal limits. Normal speech. PSYCHIATRIC: Very anxious, odd affect. Denies suicidal homicidal ideation. Data Data Last Documented VS Vital Signs Date Time Temp Pulse Resp B/P (MAP) Pulse Ox O2 Delivery O2 Flow Rate FiO2 10/12/17 15:27 99.0 77 16 114/69 (84) 96 Orders Orders Electrocardiogram (10/12/17 15:46) Basic Metabolic Panel (Bmp) (10/12/17 15:46) Complete Blood Count With Diff (10/12/17 15:46) Troponin I (1/19/18 15:46) Ct Brain W/O Iv Contrast(Rout) (10/12/17 15:46) Ct Cerv Spine W/O Contrast (10/12/17 15:46) Ecg Monitoring (10/12/17 15:46) Iv Access Insert/Monitor (10/12/17 15:46) Oximetry (10/12/17 15:46) Sodium Chloride 0.9% Flush (Ns Flush) (10/12/17 16:00) Acetamin-Hydrocod 325-5 Mg ([place] 5-325 (10/12/17 17:00) Ed Discharge Order (10/12/17 17:07) Labs Laboratory Tests Test 10/12/17 15:54 White Blood Count 9.5 TH/MM3 Red Blood Count 3.56 MIL/MM3 Hemoglobin 11.1 GM/DL Hematocrit 33.0 % Mean Corpuscular Volume 92.7 FL Mean Corpuscular Hemoglobin 31.1 PG Mean Corpuscular Hemoglobin Concent 33.5 % Red Cell Distribution Width 14.5 % Platelet Count 367 TH/MM3 Mean Platelet Volume 6.5 FL Neutrophils (%) (Auto) 73.2 % Lymphocytes (%) (Auto) 20.4 % Monocytes (%) (Auto) 4.0 % Eosinophils (%) (Auto) 1.8 % Basophils (%) (Auto) 0.6 % Neutrophils # (Auto) 6.9 TH/MM3 Lymphocytes # (Auto) 1.9 TH/MM3 Monocytes # (Auto) 0.4 TH/MM3 Eosinophils # (Auto) 0.2 TH/MM3 Basophils # (Auto) 0.1 TH/MM3 CBC Comment DIFF FINAL Differential Comment Blood Urea Nitrogen 12 MG/DL Creatinine 1.71 MG/DL Random Glucose 106 MG/DL Calcium Level 8.8 MG/DL Sodium Level 136 MEQ/L Potassium Level 4.5 MEQ/L Chloride Level 102 MEQ/L Carbon Dioxide Level 28.3 MEQ/L Anion Gap 6 MEQ/L Estimat Glomerular Filtration Rate 31 ML/MIN Troponin I LESS THAN 0.02 NG/ML MDM Medical Decision Making Medical Screen Exam Complete: Yes Emergency Medical Condition: Yes Differential Diagnosis Closed head injury, syncope, psychosis, MS, Narrative Course Patient roomed in the emergency department. Last [address] 10/12/17 1700 Signed Impressions: Service Date/Time: Thursday, October 12, 2017 16:15 - CONCLUSION: Normal examination. Jersey Brown MD Cervical Spine CT 10/12/17 1546 Signed Impressions: Service Date/Time: Thursday, October 12, 2017 16:15 - CONCLUSION: Stable CT scan of the cervical spine. No acute bony injury. Remote postsurgical and degenerative changes as described. Jersey Brown MD No indication for imaging of the patient's spine, initial workup with blood work EKG negative. Patient states she would do for her normal Lortab, for her lower back pain. I have ordered her Lortab, she turned nursing away stating that she did not want pain medication she had at home. I do not appreciate any indication for increasing the patient's pain regimen at this time. She kicked the nurse out of her room angrily. When I went to reexamine the patient she states that she was going to leave now, when I asked what else I could do for her she said "fire that bitch" referring to her nurse. She was unable to be counseled further and eloped from the emergency department. Diagnosis Primary Impression: Closed head injury Additional Impression: Chronic back pain Disposition: 01 DISCHARGE HOME Condition: Stable Mynor Urbina MD Oct 12, 2017 16:00
[2017-10-12 16:14] LABS: AUTOMATED NEUTROPHIL # 6.9 TH/MM3 (1.8-7.7); BASOPHIL # 0.1 TH/MM3 (0-0.2); BASOPHIL % 0.6 % (0.0-2.0); EOSINOPHIL # 0.2 TH/MM3 (0-0.4); EOSINOPHIL % 1.8 % (0.0-4.0); HEMOGLOBIN 11.1 GM/DL (11.6-15.3); LYMPH % 20.4 % (9.0-44.0); LYMPHOCYTE # 1.9 TH/MM3 (1.0-4.8); MEAN CELL VOLUME 92.7 FL (80.0-100.0); MEAN CORPUSCULAR HEMOGLOBIN 31.1 PG (27.0-34.0); MEAN CORPUSCULAR HGB CONC 33.5 % (32.0-36.0); MEAN PLATELET VOLUME 6.5 FL (7.0-11.0); MONOCYTE # 0.4 TH/MM3 (0-0.9); NEUT % 73.2 % (16.0-70.0); PLATELET COUNT 367 TH/MM3 (150-450); RED BLOOD COUNT 3.56 MIL/MM3 (4.00-5.30); RED CELL DISTRIBUTION WIDTH 14.5 % (11.6-17.2); WHITE BLOOD COUNT 9.5 TH/MM3 (4.0-11.0)
--- NOTE | 2017-10-12 16:23 | RADRPT ---
EXAM DATE/TIME: 10/12/2017 16:15 [facility] COMPARISON: No previous studies available for comparison. INDICATIONS : Head pain due to fall. RADIATION DOSE: 29.53 CTDIvol (mGy) MEDICAL HISTORY : Renal failure, acute. SURGICAL HISTORY : Tubal ligation. ENCOUNTER: Initial ACUITY: 1 day PAIN SCALE: 7/10 LOCATION: Bilateral cranial TECHNIQUE: Multiple contiguous axial images were obtained of the head. Using automated exposure control and adj ustment of the mA and/or kV according to patient size, radiation dose was kept as low as reasonably a chievable to obtain optimal diagnostic quality images. DICOM format image data is available electro nically for review and comparison. FINDINGS: CEREBRUM: The ventricles are normal for age. No evidence of midline shift, mass lesion, hemorrhage or acute in farction. No extra-axial fluid collections are seen. POSTERIOR FOSSA: The cerebellum and brainstem are intact. The 4th ventricle is midline. The cerebellopontine angle i s unremarkable. EXTRACRANIAL: The visualized portion of the orbits is intact. SKULL: The calvaria is intact. No evidence of skull fracture. CONCLUSION: Normal examination. Jersey Brown MD on October 12, 2017 at 16:19 Board Certified Radiologist. This report was verified electronically.
[2017-10-12 16:42] LABS: BICARBONATE 28.3 MEQ/L (21.0-32.0); BLOOD UREA NITROGEN 12 MG/DL (7-18); CALCIUM 8.8 MG/DL (8.5-10.1); CHLORIDE 102 MEQ/L (98-107); CREATININE 1.71 MG/DL (0.50-1.00); GLOMERULAR FILTRATION RATE 31 ML/MIN (>89); GLUCOSE,RANDOM 106 MG/DL (74-106); SODIUM (NA) 136 MEQ/L (136-145)
--- NOTE | 2017-10-12 16:43 | RADRPT ---
EXAM DATE/TIME: 10/12/2017 16:15 [facility] COMPARISON: CT CERVICAL SPINE W/O CONTRAST, June 06, 2014, 10:29. INDICATIONS : Neck pain due to fall. RADIATION DOSE: 16.68 CTDIvol (mGy) MEDICAL HISTORY : Renal failure, acute. SURGICAL HISTORY : Tubal ligation. Fusion, cervical. ENCOUNTER: Initial ACUITY: 1 day PAIN SCALE: 7/10 LOCATION: Bilateral lower back region. TECHNIQUE: Volumetric scanning of the cervical spine was performed. Multiplanar reconstructions in the sagittal, coronal and oblique axial planes were performed. Using automated exposure control and adjustment o f the mA and/or kV according to patient size, radiation dose was kept as low as reasonably achievable to obtain optimal diagnostic quality images. DICOM format image data is available electronically f or review and comparison. FINDINGS: Cervical spine is stable relative to prior examination with remote fusion C5-6 and extensive degenera tive change C6-7 with anterior cervical fusion plate in place C7-T1. Alignment is unchanged minimally to effaces C4 on C5 and C3 on 4. Spurring appreciated. Bony structures are otherwise intact no acute bony injury, compression, or destructive change. There are lateral mass facet arthritic changes mult ilevel. CONCLUSION: Stable CT scan of the cervical spine. No acute bony injury. Remote postsurgical and degenerative gr ges as described. Jersey Brown MD on October 12, 2017 at 16:37 Board Certified Radiologist. This report was verified electronically.
[2017-10-12 16:49] LABS: TROPONIN I LESS THAN 0.02 NG/ML (0.02-0.05)
[2017-10-12] MEDS ORDERED: ACETAMINOPHEN/HYDROcodone 325 MG/5 MG TAB PO ONE (17:00)
--- NOTE | 2017-10-13 14:56 | EKG ---
Date Performed: 10/12/2017 Time Performed: 15:33:03 PTAGE: 52 years EKG: Sinus rhythm POSSIBLE LEFT ATRIAL ENLARGEMENT POSSIBLE RIGHT VENTRICULAR CONDUCTION DELAY BORDERLINE ECG Since PREVIOUS TRACING , no significant change noted PREVIOUS TRACIN08/11/2015 14.33 DOCTOR: Norman Rush Interpretating Date/Time 10/13/2017 14:56:32
== END 2017-10-12 17:24 | disposition home or self-care (01) ==
LOC: NEPE 15:15
DX: S09.90XA Unspecified injury of head, initial encounter (principal); M54.5 Low back pain; G89.29 Other chronic pain; R94.31 Abnormal electrocardiogram [ECG] [EKG]; G35 Multiple sclerosis; F32.9 Major depressive disorder, single episode, unspecified; M19.90 Unspecified osteoarthritis, unspecified site; F17.210 Nicotine dependence, cigarettes, uncomplicated; W19.XXXA Unspecified fall, initial encounter; Y92.002 Bathroom of unspecified non-institutional (private) residence as the place of occurrence of the external cause; Z79.899 Other long term (current) drug therapy
CPT/HCPCS: 70450; 72125; 80048; 84484; 85025; 93005; 99285

== ENCOUNTER 2018-05-14 10:22 | Inpatient (IN) ==
--- NOTE | 2018-05-14 11:01 | ED ---
HPI General Chief Complaint: Extremity Injury, Lower Stated Complaint: Evac/Fall Time Seen by Provider: 05/14/18 10:34 Source: patient and EMS Mode of arrival: EMS Limitations: altered mental status History of Present Illness HPI Narrative: 52-year-old female patient with history of MS, chronic pain, presents to the ER today brought in by EMS from assisted care facility with suspected fall, patient does not remember how and when, they think that it happened last night, complaining of left hip pain which she currently states is a 10 out of 10. She states that she had tried to take Xanax for the pain because she had ran out of her pain medications. She currently denies any chest pains, trouble breathing, or other issues. However, she is disoriented, does not remember exactly what happened. Related Data Home Medications Medication Instructions Recorded Confirmed Unable to Obtain Home Meds 05/14/18 05/14/18 Allergies Allergy/AdvReac Type Severity Reaction Status Date / Time *MDRO Multi-Drug Resistant Allergy Unknown Uncoded 10/12/17 15:32 Organism Review of Systems ROS Unobtainable ROS Unobtainable: unobtainable due to mental status [facility] Medical History Medical History Multiple sclerosis (Acute) Surgical history unknown (Acute) Social History Social History Substance History: Unable to Obtain Second Hand Smoke Exposure: No Smoking Status: Unknown if ever smoked How Often Do You Have a Drink Containing Alcohol: Unable to Obtain Recent Travel in [facility] within the Last 8 Weeks: No Recent Out of Country Travel within the Last 8 Weeks: No Immunization History Tetanus Immunization: Unable to Assess Hx Influenza Vaccine This Season: Unable to Assess Exam Narrative Exam Narrative: GENERAL: Well-developed middle-age female patient currently in moderate distress. Awake, disoriented. SKIN: Focused skin assessment warm/dry. HEAD: Atraumatic. Normocephalic. EYES: Pupils equal and round. No scleral icterus. No injection or drainage. ENT: No nasal bleeding or discharge. Mucous membranes pink and moist. NECK: Trachea midline. No JVD. Supple. CARDIOVASCULAR: Regular rate and rhythm. No murmur appreciated. RESPIRATORY: No accessory muscle use. Clear to auscultation. Breath sounds equal bilaterally. GASTROINTESTINAL: Abdomen soft, non-tender, nondistended. Hepatic and splenic margins not palpable. MUSCULOSKELETAL: No obvious deformities. No clubbing. No cyanosis. No edema. NEUROLOGICAL: Awake and disoriented. No obvious cranial nerve deficits. Motor grossly within normal limits. Slurred speech. PSYCHIATRIC: Disoriented; insight and judgment poor. Course Initial Documented Vital Signs Temperature 98.2 F 05/14/18 10:29 Pulse Rate 106 H 05/14/18 10:29 Respiratory Rate 15 05/14/18 10:29 Blood Pressure 130/74 05/14/18 10:29 Pulse Oximetry 97 05/14/18 10:29 Last Documented Vital Signs Temperature 98.2 F 05/14/18 10:29 Pulse Rate 106 H 05/14/18 10:29 Respiratory Rate 15 05/14/18 10:29 Blood Pressure 130/74 05/14/18 10:29 Pulse Oximetry 99 05/14/18 13:16 Medical Decision Making MDM Narrative Medical decision making narrative: X-ray shows left humeral neck fracture. CT the brain did not show any signs of acute intracranial processes. Vital signs are stable in the ER. Lab work was fairly unremarkable. Case is discussed with Dr. García who would like a CT of the femur for further evaluation, wants patient to be admitted to medicine. Case was discussed with Dr. Heart for admission. Medical Screen Exam Complete: Yes Emergency Medical Condition: Yes Differential Diagnosis Differential Diagnosis: Hip fracture versus dislocation, medication side effects versus dehydration versus electrolyte abnormalities versus acute intracranial injuries Lab Data Lab results reviewed: Yes I reviewed the patient's lab results. Result diagrams: 05/14/18 10:50 05/14/18 10:50 Lab Results 05/14/18 05/14/18 05/14/18 Range/Units 10:50 10:50 10:50 WBC 7.1 (4.0-11.0) th/mm3 RBC 2.86 L (4.00-5.30) mil/mm3 Hgb 9.0 L (11.6-15.3) gm/dL Hct 26.1 L (35.0-46.0) % MCV 91.3 (80.0-100.0) fL MCH 31.5 (27.0-34.0) pg MCHC 34.5 (32.0-36.0) % RDW 13.4 (11.6-17.2) % Plt Count 298 (150-450) th/mm3 MPV 7.2 (7.0-11.0) fL Neut % (Auto) 87.8 H (16.0-70.0) % Lymph % (Auto) 6.9 L (9.0-44.0) % Terrell % (Auto) 5.1 (0.0-8.0) % Eos % (Auto) 0.0 (0.0-4.0) % Baso % (Auto) 0.2 (0.0-2.0) % Neut # (Auto) 6.3 (1.8-7.7) th/mm3 Lymph # (Auto) 0.5 L (1.0-4.8) th/mm3 Terrell # (Auto) 0.4 (0.0-0.9) th/mm3 Eos # (Auto) 0.0 (0.0-0.4) th/mm3 Baso # (Auto) 0.0 (0.0-0.2) th/mm3 WBC Differential . Differential Comment Auto diff final PT 10.8 (9.8-11.6) sec INR 1.1 Ratio Sodium 127 L (136-145) meq/L Potassium 4.1 (3.5-5.1) meq/L Chloride 97 L (98-107) meq/L Carbon Dioxide 22.3 (21.0-32.0) meq/L Anion Gap 8 (5-15) meq/L BUN 11 (7-18) mg/dL Creatinine 0.99 (0.50-1.00) mg/dL Estimated GFR 58 L (>89) mL/min Random Glucose 113 H (74-106) mg/dL Calcium 8.0 L (8.5-10.1) mg/dL Total Bilirubin 0.8 (0.2-1.0) mg/dL AST 27 (15-37) U/L ALT 22 (10-53) U/L Alkaline Phosphatase 62 (45-117) U/L Ammonia (11-32) mcmol/L Total Creatine Kinase 316 H (26-192) U/L CK-MB (CK-2) 1.3 (0.5-3.6) ng/mL CK-MB (CK-2) % 0.4 (0.0-4.0) % Troponin I Less than 0.02 L (0.02-0.05) ng/mL Total Protein 6.8 (6.4-8.2) g/dL Albumin 3.4 (3.4-5.0) g/dL Urine Color (Yellw/Straw) Urine Clarity (Clear) Urine pH (5.0-8.5) Ur Specific Viola (1.002-1.035) Urine Protein (Neg-Trace) mg/dL Urine Glucose (UA) (Negative) mg/dL Urine Ketones (Negative) mg/dL Urine Occult Blood (Negative) Urine Nitrate (Negative) Urine Bilirubin (Negative) Urine Urobilinogen (Less than 2) mg/dL Ur Leukocyte Esterase (Negative) Urine RBC (0-3) /hpf Micro UA Comment Urine Culture Comments Urine Opiates Screen (Neg) Ur Barbiturates Screen (Neg) Ur Amphetamines Screen (Neg) U Benzodiazepines Scrn (Neg) Urine Cocaine Screen (Neg) U Cannabinoids Screen (Neg) Serum Alcohol Less than 3 (0-5) mg/dL 05/14/18 05/14/18 05/14/18 Range/Units 10:50 10:50 10:50 WBC (4.0-11.0) th/mm3 RBC (4.00-5.30) mil/mm3 Hgb (11.6-15.3) gm/dL Hct (35.0-46.0) % MCV (80.0-100.0) fL MCH (27.0-34.0) pg MCHC (32.0-36.0) % RDW (11.6-17.2) % Plt Count (150-450) th/mm3 MPV (7.0-11.0) fL Neut % (Auto) (16.0-70.0) % Lymph % (Auto) (9.0-44.0) % Terrell % (Auto) (0.0-8.0) % Eos % (Auto) (0.0-4.0) % Baso % (Auto) (0.0-2.0) % Neut # (Auto) (1.8-7.7) th/mm3 Lymph # (Auto) (1.0-4.8) th/mm3 Terrell # (Auto) (0.0-0.9) th/mm3 Eos # (Auto) (0.0-0.4) th/mm3 Baso # (Auto) (0.0-0.2) th/mm3 WBC Differential Differential Comment PT (9.8-11.6) sec INR Ratio Sodium (136-145) meq/L Potassium (3.5-5.1) meq/L Chloride (98-107) meq/L Carbon Dioxide (21.0-32.0) meq/L Anion Gap (5-15) meq/L BUN (7-18) mg/dL Creatinine (0.50-1.00) mg/dL Estimated GFR (>89) mL/min Random Glucose (74-106) mg/dL Calcium (8.5-10.1) mg/dL Total Bilirubin (0.2-1.0) mg/dL AST (15-37) U/L ALT (10-53) U/L Alkaline Phosphatase (45-117) U/L Ammonia Less than 10 L (11-32) mcmol/L Total Creatine Kinase (26-192) U/L CK-MB (CK-2) (0.5-3.6) ng/mL CK-MB (CK-2) % (0.0-4.0) % Troponin I (0.02-0.05) ng/mL Total Protein (6.4-8.2) g/dL Albumin (3.4-5.0) g/dL Urine Color Yellow (Yellw/Straw) Urine Clarity Clear (Clear) Urine pH 6.0 (5.0-8.5) Ur Specific Viola 1.008 (1.002-1.035) Urine Protein Negative (Neg-Trace) mg/dL Urine Glucose (UA) Negative (Negative) mg/dL Urine Ketones Negative (Negative) mg/dL Urine Occult Blood Negative (Negative) Urine Nitrate Negative (Negative) Urine Bilirubin Negative (Negative) Urine Urobilinogen Less than 2 (Less than 2) mg/dL Ur Leukocyte Esterase Negative (Negative) Urine RBC 1 (0-3) /hpf Micro UA Comment Cath-culture not ind Urine Culture Comments Cath-cult not ind Urine Opiates Screen Neg (Neg) Ur Barbiturates Screen Neg (Neg) Ur Amphetamines Screen Neg (Neg) U Benzodiazepines Scrn Pos H (Neg) Urine Cocaine Screen Neg (Neg) U Cannabinoids Screen Neg (Neg) Serum Alcohol (0-5) mg/dL Imaging Data Attestation: I personally reviewed and interpreted this imaging study as follows : Radiologist's impression: Chest X-Ray 05/14/18 10:34 CONCLUSION: No acute cardiopulmonary abnormality is identified. Lungs are underinflated with mild subsegmental atelectasis at the bases. Head CT 05/14/18 10:34 CONCLUSION: Unremarkable study. Pelvis X-Ray 05/14/18 10:34 CONCLUSION: Mildly comminuted and displaced left intertrochanteric femur fracture. Discharge Plan Discharge Disposition Patient Disposition: 30 Still Patient Discharge Condition Condition: Stable Discharge Details Anticipated Discharge Date: 05/14/18 Diagnosis: Fracture of femur, Altered mental state Physicians Team ED Provider: Ronald Jorgensen Primary Care Provider: KYRA, Attending Provider: Lai Heart Other Providers: Lee Hurd Status ED Status: Admitted Patient
--- NOTE | 2018-05-14 11:05 | CT ---
EXAM DATE: 05/14/2018 11:00 AM EDT AGE/SEX: 52 years / Female INDICATIONS: Trauma. Fell yesterday. Altered mental status. CLINICAL DATA: This is the patient's initial encounter. Patient reports that signs and symptoms have been present for 1 day and indicates a pain score of 5/10. MEDICAL/SURGICAL HISTORY: Multiple sclerosis. None. RADIATION DOSE: 30.28 CTDI (mGy) COMPARISON: [facility] [place], 10/12/2017. . TECHNIQUE: CT of the head without contrast. Using automated exposure control and adjustment of the mA and/or kV according to patient size, radiation dose was kept as low as reasonably achievable to ob tain optimal diagnostic quality images. DICOM format image data is available electronically for revi ew and comparison. FINDINGS: There is no evidence for intracranial hemorrhage, mass effect, mass lesions, edema, or extra-axial fl uid collections. The visualized bony structures appear intact. The ventricles are normal size for t he patient's age. There are no signs of acute infarction for technique. CONCLUSION: Unremarkable study. Electronically signed by: Bassam Nj MD 05/14/2018 11:04 AM EDT
[2018-05-14 11:09] LABS: Baso % (Auto) 0.2 % (0.0-2.0); Hematocrit 26.1 % (35.0-46.0); Lymph # (Auto) 0.5 th/mm3 (1.0-4.8); Lymph % (Auto) 6.9 % (9.0-44.0); Mean Corpuscular HGB Conc 34.5 % (32.0-36.0); Mean Corpuscular Hemoglobin 31.5 pg (27.0-34.0); Mean Corpuscular Volume 91.3 fL (80.0-100.0); Mean Platelet Volume 7.2 fL (7.0-11.0); Mono # (Auto) 0.4 th/mm3 (0.0-0.9); Mono % (Auto) 5.1 % (0.0-8.0); Neut # (Auto) 6.3 th/mm3 (1.8-7.7); Neut % (Auto) 87.8 % (16.0-70.0); Platelet Count 298 th/mm3 (150-450); Red Blood Count 2.86 mil/mm3 (4.00-5.30); Red Cell Distribution Width 13.4 % (11.6-17.2); White Blood Count 7.1 th/mm3 (4.0-11.0)
[2018-05-14 11:16] LABS: Bilirubin,Urine Negative (Negative); Clarity,Urine Clear (Clear); Color,Urine Yellow (Yellw/Straw); Glucose,Urine (UA) Negative (Negative); INR 1.1 Ratio; Leukocyte Esterase,Urine Negative (Negative); Nitrite,Urine Negative (Negative); Prothrombin Time 10.8 sec (9.8-11.6); Specific Gravity,Urine 1.008 (1.002-1.035)
[2018-05-14 11:27] LABS: Alanine Aminotransferase 22 U/L (10-53); Albumin 3.4 g/dL (3.4-5.0); Amphetamine Screen,Urine Neg (Neg); Anion Gap 8 meq/L (5-15); Aspartate Aminotransferase 27 U/L (15-37); Barbiturate Screen,Urine Neg (Neg); Blood Urea Nitrogen 11 mg/dL (7-18); Cannabinoid Screen,Urine Neg (Neg); Carbon Dioxide 22.3 meq/L (21.0-32.0); Chloride 97 meq/L (98-107); Cocaine Screen,Urine Neg (Neg); Glomerular Filtration Rate 58 mL/min (>89); Glucose,Random 113 mg/dL (74-106); Potassium 4.1 meq/L (3.5-5.1); Sodium 127 meq/L (136-145)
[2018-05-14 11:31] LABS: Alkaline Phosphatase 62 U/L (45-117); Creatine Kinase 316 U/L (26-192); Total Protein 6.8 g/dL (6.4-8.2)
[2018-05-14] MEDS ORDERED: HYDROmorphone PF Inj 2 MG/ML Vial IV.PUSH ONE (11:35)
[2018-05-14 11:47] LABS: Opiate Screen,Urine Neg (Neg)
[2018-05-14 12:02] LABS: CKMB Percent 0.4 % (0.0-4.0); Creatine Kinase MB 1.3 ng/mL (0.5-3.6)
--- NOTE | 2018-05-14 12:04 | XR ---
EXAM DATE: 05/14/2018 11:56 AM EDT AGE/SEX: 52 years / Female INDICATIONS: Left hip pain; fall. CLINICAL DATA: This is the patient's initial encounter. Patient reports that signs and symptoms have been present for 1 day and indicates a pain score of Nonresponsive. MEDICAL/SURGICAL HISTORY: Non-responsive. Non-responsive. COMPARISON: [facility], CT ABDOMEN & PELVIS W/O CONTRAST, 02/23/2017. . FINDINGS: Single AP view of the pelvis demonstrates a displaced and mildly comminuted intertrochanteric fractur e of the left proximal femur. Distal fragment displaced laterally by 7 mm and there is associated radu rtening. Pelvic bones demonstrate no acute abnormality. No significant hip joint osteoarthritis is pr esent. CONCLUSION: Mildly comminuted and displaced left intertrochanteric femur fracture. Electronically signed by: Hilario Cisse MD 05/14/2018 12:03 PM EDT
--- NOTE | 2018-05-14 12:05 | XR ---
EXAM DATE: 05/14/2018 11:56 AM EDT AGE/SEX: 52 years / Female INDICATIONS: Shortness of breath. CLINICAL DATA: This is the patient's initial encounter. Patient reports that signs and symptoms have been present for 1 day and indicates a pain score of Nonresponsive. MEDICAL/SURGICAL HISTORY: Multiple sclerosis. Non-responsive. COMPARISON: [facility], XR CHEST PA AND LAT, 11/22/2016. . FINDINGS: Portable AP view of the chest demonstrates a normal-sized cardiac silhouette. EKG lines overlie the p atient. Lungs are mildly underinflated with likely subsegmental atelectasis at the lung bases. No eff usion, consolidation, or pneumothorax is identified. The bones and soft tissues demonstrate no acute finding. Cervical spine hardware is present. CONCLUSION: No acute cardiopulmonary abnormality is identified. Lungs are underinflated with mild subsegmental at electasis at the bases. Electronically signed by: Hilario Cisse MD 05/14/2018 12:04 PM EDT
[2018-05-14] MEDS ORDERED: Acetaminophen 325 MG Tablet PO PRN (13:30)
[2018-05-14] MEDS ORDERED: Bisacodyl 10 MG Supp RECTAL PRN (13:30)
[2018-05-14] MEDS ORDERED: Morphine Inj 4 MG/ML Vial IV.PUSH PRN (13:36)
[2018-05-14] MEDS: Sod Chloride 0.9% Inj 1,000 ML IV.CONT SCH (14:24)
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
--- NOTE | 2018-05-14 15:18 | CT ---
EXAM DATE: 05/14/2018 3:01 PM EDT AGE/SEX: 52 years / Female INDICATIONS: Patient fell, left hip fracture CLINICAL DATA: This is the patient's initial encounter. Patient reports that signs and symptoms have been present for 1 day and indicates a pain score of 10/10. MEDICAL/SURGICAL HISTORY: Multiple sclerosis. None. RADIATION DOSE: 14.12 CTDI (mGy) COMPARISON: No prior exams available for comparison. TECHNIQUE: Multiple contiguous axial images were acquired using a multirow detector CT scanner witho ut contrast. Multiplanar reconstruction was performed in the sagittal and coronal planes. Using aut omated exposure control and adjustment of the mA and/or kV according to patient size, radiation dose was kept as low as reasonably achievable to obtain optimal diagnostic quality images. DICOM format i mage data is available electronically for review and comparison. FINDINGS: There is a complete left femoral intertrochanteric fracture with overriding of the fracture fragments and numerous displaced fragments. There is hematoma which dissects into the left iliopsoas muscle ma ximum oblique diameter of 6.1 cm and dissects into the fascial planes surrounding the Gerota's fascia and paracolic gutter. There is also slight dissection into the left pelvic wall fat planes. There is no evidence for free fluid. The common femoral vein is visualized and is not affected by a displaced bony fragment which protrudes anterior to the femoral head and medially. Possibility of slight injur y to one of the small branches coming off the superficial femoral vessels is difficult to exclude. CONCLUSION: Extensive complex and comminuted intertrochanteric fracture with overriding of fracture f ragments and a dissecting hematoma which dissects into the left years/muscle extending to the level o f the Gerota's fascia cephaladly and partially dissecting into left pelvic wall. There is no free flu id and a small bony fragment is present appears to be separate from the common femoral vessels, howev er slight injury to one of the small branches coming off the superficial femoral vessels is not exclu ded. Electronically signed by: Bassam Nj MD 05/14/2018 3:16 PM EDT
--- NOTE | 2018-05-14 16:43 | US ---
EXAM DATE: 05/14/2018 4:10 PM EDT AGE/SEX: 52 years / Female INDICATIONS: Syncope. CLINICAL DATA: This is the patient's initial encounter. Patient reports that signs and symptoms have been present for 1 day and indicates a pain score of 0/10. MEDICAL/SURGICAL HISTORY: . Anxiety. Depression. Multiple sclerosis. Tubal ligation. Cervical spine fusion. COMPARISON: No prior exams available for comparison. VELOCITY PARAMETERS: ICA/CCA Ratio: Right 0.9 , Left 1.2 ICA: Right 101 cm/sec, Left 117 cm/sec CCA: Right 111 cm/sec, Left 101 cm/sec ECA: Right 73.9 cm/sec, Left 101 cm/sec Vertebral: Right 60.9 cm/sec antegrade, Left 56.7 cm/sec antegrade FINDINGS: Right Carotid: No significant plaque is visualized.The waveforms are within normal limits. Left Carotid: No significant plaque is visualized. The waveforms are within normal limits. Other: None. CONCLUSION: 1. Right Internal Carotid Artery: No significant stenosis or atherosclerotic plaque is visualized. 2. Left Internal Carotid Artery: No significant stenosis or atherosclerotic plaque is visualized. Electronically signed by: Hilario Cisse MD 05/14/2018 4:42 PM EDT
--- NOTE | 2018-05-14 17:25 | CT ---
EXAM DATE: 05/14/2018 5:08 PM EDT AGE/SEX: 52 years / Female INDICATIONS: Left hip fracture. Vascular injury. CLINICAL DATA: This is the patient's initial encounter. Patient reports that signs and symptoms have been present for 1 day and indicates a pain score of 4/10. MEDICAL/SURGICAL HISTORY: Multiple sclerosis. Tubal ligation. Left hip fracture. RADIATION DOSE: 12.21 CTDI (mGy) COMPARISON: [facility] [place], CT HIP LEFT W/O CONTRAST, 05/14/2018. . TECHNIQUE: Multiple contiguous axial images were acquired using a multirow detector CT scanner withou t contrast and after intravenous administration of 75 ml Omnipaque 350 (iohexol) nonionic water-solu ble contrast as a single exam dose. Multiplanar reconstruction was performed in the sagittal and cor onal planes. Using automated exposure control and adjustment of the mA and/or kV according to patien t size, radiation dose was kept as low as reasonably achievable to obtain optimal diagnostic quality images. DICOM format image data is available electronically for review and comparison. FINDINGS: Extensive left intertrochanteric fracture is again seen with dissecting hematoma discussed on the pat ient's prior pelvic CT. There is no evidence for extravasation of contrast and there is no vascular b lush. The femoral arteries appear intact. CONCLUSION: 1. No evidence for vascular injury or active bleeding. Electronically signed by: Bassam Nj MD 05/14/2018 5:24 PM EDT
[2018-05-14] MEDS ORDERED: Sodium Chlor 0.9% Inj 250 ML IV.SIG SCH (18:00)
[2018-05-14] MEDS: HYDROmorphone PF Inj 2 MG/ML Vial IV.PUSH PRN (18:09)
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
--- NOTE | 2018-05-14 19:52 | MB ---
cc: Melissa Montes De Oca MD DATE: 05/14/2018 CONSULTING PHYSICIAN: Dr. Melissa Montes De Oca from vascular surgery. REASON FOR CONSULTATION: Comminuted left intertrochanteric hip fracture and anemia with intra pelvic hemorrhage. HISTORY OF PRESENT ILLNESS: This 52-year-old female fell at home. The patient is known to have multiple sclerosis. She was transferred to our institution and was noted to have a left intertrochanteric complex comminuted hip fracture. CT of the hip was performed, which revealed questionable extravasation, and then CTA was done, which reveals no active bleeding but fairly significant left retroperitoneal pelvic hematoma, question advice about any surgical vascular implications. PAST MEDICAL HISTORY: That of anxiety, multiple sclerosis. PAST SURGICAL HISTORY: That of cervical fusion and benzodiazepine abuse, tubal ligation. PHYSICAL EXAMINATION: GENERAL: Reveals a 52-year-old unfortunate lady. HEENT: Normocephalic. No trauma to the head. Pupils are equal and reactive. Extraocular muscles are intact. The patient has normal ocular motion and no effect of MS on the same. Her speech is slightly slurred consistent with multiple sclerosis, but clearly audible and understandable. NECK: Bilateral carotid pulses. No bruits. CHEST: Bilateral breath sounds. The patient is fairly thin. HEART: Regular rhythm. ABDOMEN: Soft. No rebound, no guarding, no masses. EXTREMITIES: The patient has actually excellent palpable femoral, popliteal, dorsalis pedis and posterior palpable tibial pulses. Both feet are very well perfused, warm with normal capillary refill. The patient is tender over the left hip when there is some degree of swelling consistent with underlying severe left hip fracture. NEUROLOGIC: The patient is awake, alert and oriented; however, she is very weak. She has limited motion in the left leg, which is in the bent/flexed position. She states that she falls very often in multiple sclerosis and is followed with multiple physicians. IMPRESSION AND RECOMMENDATIONS: I agree with laboratory and diagnostic procedures. This 52-year-old lady has very complex intertrochanteric comminuted left hip fracture and in addition, has significant anemia just judging from her appearance. She is fairly pale and probably with hemoglobin above 8. Will likely require transfusion this admission based on this. Would urge to repeat a hemoglobin in the ER prior to any procedures. In addition, the patient has a pelvic hematoma limited to the left iliac, internal wall, probably containing about 500-600 mL of blood. This is contained. There is no active extravasation that would require any type of aggressive and acute intervention. As far as I am concerned, the patient can undergo her hip surgery as soon as she is transfused some blood. New hemoglobin is pending. I will continue to follow patient. I thank you very much for your referral. Right now from a vascular point nothing to add. MD LUCINDA Munguia/kaya , 07:07 PM , 07:16 PM
[2018-05-14 20:02] LABS: Hematocrit 21.8 % (35.0-46.0); Hemoglobin 7.4 gm/dL (11.6-15.3)
[2018-05-14] MEDS: Senna/Docusate Sodium 8.6/50 MG Tablet PO SCH (21:45)
--- NOTE | 2018-05-14 23:51 | ECG ---
Date Performed: 05/14/2018 Time Performed: 11:25:11 PTAGE: 52 years EKG: SINUS TACHYCARDIA POSSIBLE RIGHT VENTRICULAR CONDUCTION DELAY ABNORMAL RHYTHM ECG PREVIOUS TRACING : 10/12/2017 15.33 Compared to previous tracing, rate has increased DOCTOR: Zachary Shelton Interpretating Date/Time 05/14/2018 23:50:15
[2018-05-15] MEDS: Sod Chloride 0.9% Inj 1,000 ML IV.CONT SCH ×3 (01:29→19:59)
[2018-05-15] MEDS: HYDROmorphone PF Inj 2 MG/ML Vial IV.PUSH PRN ×2 (01:30→05:17)
[2018-05-15] MEDS ORDERED: Tranexamic Acid Inj 1,000 MG/10 ML Ampul ONE (08:13)
[2018-05-15] MEDS ORDERED: Ketamine Inj 50 MG/5 ML Syringe IV.PUSH ONE (08:20)
[2018-05-15] MEDS ORDERED: Lidocaine PF 1% Inj 5 ML Syringe INFILTRATN ONE (08:28)
[2018-05-15] MEDS ORDERED: Sodium Chlor 0.9% Inj 500 ML IV.SIG ONE (08:28)
[2018-05-15] MEDS: Senna/Docusate Sodium 8.6/50 MG Tablet PO SCH ×2 (09:24→20:17)
[2018-05-15] MEDS ORDERED: Post-op Orders (for Pharmacy) OTHER STA (09:55)
[2018-05-15] MEDS ORDERED: Zolpidem Tartrate 5 MG Tablet PO PRN (09:55)
[2018-05-15] MEDS ORDERED: Bisacodyl 10 MG Supp RECTAL PRN (09:55)
[2018-05-15] MEDS ORDERED: Aluminum/Magnesium/Simethacone Susp 30 ML UDC PO PRN (09:55)
--- NOTE | 2018-05-15 10:00 | P.OP ---
- Preoperative Diagnosis (1) Intertrochanteric fracture of left femur - Postoperative Diagnosis (1) Intertrochanteric fracture of left femur Date of procedure: 05/15/18 Procedure: Left hip treatment of comminuted intertrochanteric fracture with intramedullary nail Surgeon: Lee Hurd MD Seasonal Package Handler: ANNMARIE Ashford The surgical procedure was assisted by my Advanced Registered Nurse Practitioner. My COMMUNICATIONS STRATEGIST presence was necessary throughout this case for the manipulation and positioning of the surgical extremity. My COMMUNICATIONS STRATEGIST was assisting me throughout the duration of this procedure. The skill set of an Advance Registered Nurse Practitioner was medically necessary to complete this procedure. During the surgical case, the surgical assistant certified was working at the back table and the Advance Registered Nurse Practitioner was directly assisting me. Operation and Findings: Estimated blood loss: 200 cc Implants: Synthes short trochanteric nail, size: 10 x 130 with 90 mm helical blade The patient received intravenous vancomycin and Ancef. After the appropriate anesthesia was administered, and the patient was transferred to the fracture table. The fracture was anatomically reduced under fluoroscopic imaging. The hip was prepped and draped in usual sterile fashion. We made incision just proximal to the tip of the greater trochanter. We dissected down through the deep fascia. We used a threaded guidewire at the tip of the greater trochanter which was placed down to the metaphyseal region on both the AP and lateral views. We reamed proximally. Using fluoroscopic analysis we templated the appropriate size for the short nail. When we were reaming and placing the nail subsequently into position the fracture significantly displaced. We made an incision along the lateral aspect of the leg through the deep fascia and placed a Martin elevator on the base of the femoral neck which reduced the fracture anatomically at the neck region. This nail was then placed into position under fluoroscopic guidance. We made incision laterally based on the position of the associated jig. We then placed a threaded guidewire into the center, center of the femoral head. The appropriate length for the helical blade was measured. We drilled laterally and then step reamed the femoral neck and femoral head region. The helical blade was placed into position. We then tightened the proximal set screw, which was followed by releasing one turn off of the screw to allow for compression. Traction was released from the leg and then manual compression was performed. We did go to a good endpoint to compression. The nail was secured distally with a single screw off of the jig using fluoroscopic guidance. We took final fluoroscopic imaging which revealed that the fracture was in very good position. The hardware was in good position as well. The wounds were thoroughly irrigated and then closed with a 0 Vicryl followed by 2-0 Vicryl and shital. The postoperative plan is to start toe-touch weightbearing. Additionally, we will initiate postoperative antibiotics for 24 hours along with DVT prophylaxis consisting of early mobilization, SCDs, compression stockings, and Lovenox followed by aspirin.
--- NOTE | 2018-05-15 10:20 | XR ---
EXAM DATE: 05/15/2018 10:11 AM EDT AGE/SEX: 52 years / Female INDICATIONS: Post-op ORIF left hip fracture. CLINICAL DATA: This is the patient's subsequent encounter. Patient reports that signs and symptoms h ave been present for 2 days and indicates a pain score of Nonresponsive. MEDICAL/SURGICAL HISTORY: Non-responsive. Non-responsive. [place] [facility] [place]. . FINDINGS: 4 spot fluoroscopic images of the left hip and femur obtained in the operating room during a procedur e demonstrates an antegrade intramedullary jean carlos with a single distal interlocking screw and a proximal femoral head and neck screw. There is improved anatomic alignment. CONCLUSION: Improved alignment following left femur ORIF, as above. Electronically signed by: Hilario Cisse MD 05/15/2018 10:18 AM EDT
[2018-05-15] MEDS ORDERED: fentaNYL Citrate Inj 100 MCG/2 ML Ampul ONE (10:29)
[2018-05-15] MEDS ORDERED: *Meperidine Inj 25 MG/ML Vial PERIprocedural Use ONLY ONE (10:31)
[2018-05-15 12:26] LABS: Hematocrit 32.3 % (35.0-46.0); Hemoglobin 11.2 gm/dL (11.6-15.3)
--- NOTE | 2018-05-15 13:33 | P.PN ---
Subjective Interval history: Follow-up visit for left hip fracture, pelvic hematoma, possible syncopal episode resulting in fall. Patient is status post left hip surgery day 0. Patient is seen and examined sitting up in bedside recliner, appears to be in no acute distress. Patient reports she is having some pain although fairly controlled at the moment. Denies any nausea, vomiting, chills, shortness of breath, cough or chest pain at the moment. I asked patient if she remembers what happened when she fell at home and she reports that she was getting up to go to the bathroom when she got up too fast and became dizzy. Patient reports that this will frequently happen at home when she stands up too fast. She denies any complaints of chest pain, heart palpitations prior to episode. Physical Exam Vital signs: Vital Signs 05/14/18 14:24 05/14/18 17:08 05/14/18 18:10 Temperature Pulse Rate 91 H 99 H 111 H Respiratory Rate 14 17 17 Blood Pressure 109/62 108/58 L 107/66 Pulse Oximetry 100 97 98 05/14/18 19:35 05/14/18 20:00 05/14/18 23:02 Temperature 99.5 F Pulse Rate 99 H 98 H 98 H Respiratory Rate 14 18 Blood Pressure 102/55 L 96/51 L Pulse Oximetry 98 97 05/14/18 23:06 05/14/18 23:24 05/14/18 23:49 Temperature 99.1 F 99.1 F Pulse Rate 98 H 101 H 99 H Respiratory Rate 20 18 Blood Pressure 90/53 L 89/54 L Pulse Oximetry 98 05/15/18 00:00 05/15/18 00:11 05/15/18 02:18 Temperature 99.2 F 99.1 F Pulse Rate 105 H 96 H 94 H Respiratory Rate 18 17 Blood Pressure 95/53 L 102/57 L Pulse Oximetry 95 95 05/15/18 03:00 05/15/18 03:21 05/15/18 03:41 Temperature 99.6 F 99.0 F Pulse Rate 91 H 94 H 93 H Respiratory Rate 18 18 Blood Pressure 105/59 L 102/58 L Pulse Oximetry 96 05/15/18 04:00 05/15/18 05:05 05/15/18 06:13 Temperature 98.8 F 98.8 F 99.0 F Pulse Rate 101 H 96 H 93 H Respiratory Rate 18 20 20 Blood Pressure 107/60 140/63 105/60 Pulse Oximetry 96 92 L 05/15/18 06:16 05/15/18 06:32 05/15/18 07:00 Temperature 99.0 F 98.1 F 98.6 F Pulse Rate 93 H 93 H 94 H Respiratory Rate 20 18 17 Blood Pressure 105/60 120/57 L 103/53 L Pulse Oximetry 92 L 93 L 05/15/18 10:23 05/15/18 10:30 05/15/18 10:45 Temperature 98.3 F Pulse Rate 94 H 94 H 92 H Respiratory Rate 16 16 16 Blood Pressure 119/74 117/75 107/67 Pulse Oximetry 96 100 98 05/15/18 11:00 05/15/18 11:09 05/15/18 12:00 Temperature 98.3 F Pulse Rate 90 87 91 H Respiratory Rate 16 16 18 Blood Pressure 113/73 110/71 107/66 Pulse Oximetry 98 98 98 Intake & Output 05/14/18 05/15/18 05/15/18 18:59 06:59 18:59 Intake Total 1200 / 1200 1000 / 1000 Output Total 1400 / 1400 575 / 575 300 / 300 Balance -1400 / -1400 625 / 625 700 / 700 Weight 63.503 kg 53.5 kg Intake: IV 1000 / 1000 1000 / 1000 NS Inj 1,000 ML @ 100 mls/hr IV 1000 / 1000 1000 / 1000 .CONT .Q[facility]H [facility] Rx#:[id number] Other 200 / 200 Rbc As-3 Leukoreduced Unit 100 / 100 [id number] Rbc As-3 Leukoreduced Unit 100 / 100 [id number] Intake (Blood Product) Amt 0 / 0 Rbc As-3 Leukoreduced Unit 0 / 0 [id number] Rbc As-3 Leukoreduced Unit 0 / 0 [id number] Rbc As-3 Leukoreduced Unit 0 / 0 [id number] Output: Urine 1400 / 1400 575 / 575 Estimated Blood Loss 100 / 100 Urine Amount (Catheter) 200 / 200 Indwelling Urethral Catheter 200 / 200 Other: Date of Last Bowel Movement 05/13/18 Weight On Admission 53.524 kg Narrative: GENERAL: Well developed, well-nourished, female sitting up in chair in no acute distress. SKIN: Warm and dry. HEAD: Atraumatic. Normocephalic. EYES: Pupils equal,round reactive. No scleral icterus. No injection or drainage. ENT: No nasal bleeding or discharge. Mucous membranes pink and moist. NECK: Trachea midline. No JVD. CARDIOVASCULAR: Regular rate and rhythm. RESPIRATORY: No accessory muscle use. Clear to auscultation. Breath sounds equal bilaterally. GASTROINTESTINAL: Abdomen soft, non-tender, nondistended. + bowel sounds MUSCULOSKELETAL: Extremities without clubbing, cyanosis, or edema. Left hip dressing dry and intact, + pedal pulse, capillary refill < 3 seconds. NEUROLOGICAL: Awake, alert and oriented. No obvious cranial nerve deficits. Sensation to left lower extremity intact, leg is warm, capillary refill less than 3 seconds. Normal speech. - Urinary Catheter Management Indwelling Urethral Catheter Cath placed during this visit: yes Reason for continuing: Hourly intake/output Insertion date: 05/14/18 Insertion time: 10:40 Results - Labs CBC & Chem 7: 05/16/18 04:18 05/15/18 14:07 Laboratory Results - last 24 hr 05/14/18 05/14/18 05/14/18 16:50 18:05 19:36 Hgb 7.0 L D 7.4 L Hct 20.0 L* 21.8 L Blood Type B Positive Antibody Screen Negative MTS Gel Crossmatch See Detail 05/15/18 11:40 Hgb 11.2 L D Hct 32.3 L Blood Type Antibody Screen MTS Gel Crossmatch - Imaging Impressions Carotid Doppler Study 05/14/18 00:00 CONCLUSION: 1. Right Internal Carotid Artery: No significant stenosis or atherosclerotic plaque is visualized. 2. Left Internal Carotid Artery: No significant stenosis or atherosclerotic plaque is visualized. Hip CT 05/14/18 13:06 CONCLUSION: Extensive complex and comminuted intertrochanteric fracture with overriding of fracture fragments and a dissecting hematoma which dissects into the left years/muscle extending to the level of the Gerota's fascia cephaladly and partially dissecting into left pelvic wall. There is no free fluid and a small bony fragment is present appears to be separate from the common femoral vessels, however slight injury to one of the small branches coming off the superficial femoral vessels is not excluded. Hip CT 05/14/18 15:38 CONCLUSION: 1. No evidence for vascular injury or active bleeding. Hip X-Ray 05/15/18 00:00 CONCLUSION: Improved alignment following left femur ORIF, as above. 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 According to ER documentation patient was unable to remember how and when fall occurred, patient also reported taking Xanax for pain since she had ran out of her pain medication. Fall resulting in left hip fracture - X-ray of pelvis revealed minimally, comminuted and displaced left intratrochanteric femur fracture -Consult placed for orthopedic services, appreciate assistance -CT of hip revealed extensive complete ankle comminuted intertrochanteric fracture with overlying fracture fragments and dissecting hematoma. Injury to vascular branches cannot be excluded per radiologist. -Vascular surgery consulted for possible injury, seen and evaluated by Dr. Mahmood, recommends continuing with orthopedic surgery, H&H has been stable, vascular surgery has signed off. -Anemia noted on labs, drop in H&H to 7.0 s/p transfusion of 3 units of PRBCs - s/p left hip treatment with IM nailing 05/15 by -Pain control p.o. [place], IV morphine for breakthrough pain Fall ? syncopal episode AMS -Patient reported taking Xanax for pain, toxicology screen positive for benzodiazepines - E-forced checked, prescription for alprazolam 1 mg tablet with quantity of 90 filled on 05/12, methylphenidate 20 mg tablets quantity of 60 last filled on 04/26 , diazepam 5 mg tablets with a quantity of 30 last filled on 04/17 -CT of the head negative, UA negative -Monitor on telemetry, check carotid ultrasound, 2D echo, EEG, ammonia <10 -Fall and AMS most likely secondary to Xanax misuse - Fall precautions Hypernatremia Elevated total CK, mild -NA on admission 127, NS at 100 and hour - NA improved to 131 Multiple sclerosis -Nurse to verify patient's home medications with pharmacy -Reassess once patient is more alert and oriented DVT prophylaxis-per Ortho Lovenox Discussed Condition With: Patient and residential direct support professional Planning: Will need ortho clearance
[2018-05-15 14:32] LABS: Hemoglobin 11.2 gm/dL (11.6-15.3); Mean Corpuscular HGB Conc 33.9 % (32.0-36.0); Mean Corpuscular Hemoglobin 30.2 pg (27.0-34.0); Mean Corpuscular Volume 89.1 fL (80.0-100.0); Platelet Count 191 th/mm3 (150-450); Red Blood Count 3.71 mil/mm3 (4.00-5.30); Red Cell Distribution Width 14.3 % (11.6-17.2); White Blood Count 6.5 th/mm3 (4.0-11.0)
--- NOTE | 2018-05-15 14:56 | P.PNVS ---
Subjective Subjective/Hospital Course: This 52-year-old female fell at home. The patient is known to have multiple sclerosis. She was transferred to our institution and was noted to have a left intertrochanteric complex comminuted hip fracture. CT of the hip was performed, which revealed questionable extravasation, and then CTA was done, which reveals no active bleeding but fairly significant left retroperitoneal pelvic hematoma, question advice about any surgical vascular implications. Patient indeed has left pelvic hematoma abutting the iliac crest that there is no extravasation noted on CTA Patient underwent successful complex hip reconstruction by Dr. Hurd yesterday. Transfuse 2 units PRBC and did not require further transfusions as a testimony to excellent expert work by the orthopedic surgeon At this point hemoglobin is stable patient is not actively bleeding from the pelvis We will sign of this time and if any further vascular help is needed please reconsult Objective Vital Signs / I&O: Vital Signs 05/14/18 17:08 05/14/18 18:10 05/14/18 19:35 Temperature Pulse Rate 99 H 111 H 99 H Respiratory Rate 17 17 14 Blood Pressure 108/58 L 107/66 102/55 L Pulse Oximetry 97 98 98 05/14/18 20:00 05/14/18 23:02 05/14/18 23:06 Temperature 99.5 F 99.1 F Pulse Rate 98 H 98 H 98 H Respiratory Rate 18 20 Blood Pressure 96/51 L 90/53 L Pulse Oximetry 97 05/14/18 23:24 05/14/18 23:49 05/15/18 00:00 Temperature 99.1 F 99.2 F Pulse Rate 101 H 99 H 105 H Respiratory Rate 18 18 Blood Pressure 89/54 L 95/53 L Pulse Oximetry 98 95 05/15/18 00:11 05/15/18 02:18 05/15/18 03:00 Temperature 99.1 F 99.6 F Pulse Rate 96 H 94 H 91 H Respiratory Rate 17 18 Blood Pressure 102/57 L 105/59 L Pulse Oximetry 95 05/15/18 03:21 05/15/18 03:41 05/15/18 04:00 Temperature 99.0 F 98.8 F Pulse Rate 94 H 93 H 101 H Respiratory Rate 18 18 Blood Pressure 102/58 L 107/60 Pulse Oximetry 96 96 05/15/18 05:05 05/15/18 06:13 05/15/18 06:16 Temperature 98.8 F 99.0 F 99.0 F Pulse Rate 96 H 93 H 93 H Respiratory Rate 20 20 20 Blood Pressure 140/63 105/60 105/60 Pulse Oximetry 92 L 92 L 05/15/18 06:32 05/15/18 07:00 05/15/18 10:23 Temperature 98.1 F 98.6 F 98.3 F Pulse Rate 93 H 94 H 94 H Respiratory Rate 18 17 16 Blood Pressure 120/57 L 103/53 L 119/74 Pulse Oximetry 93 L 96 05/15/18 10:30 05/15/18 10:45 05/15/18 11:00 Temperature Pulse Rate 94 H 92 H 90 Respiratory Rate 16 16 16 Blood Pressure 117/75 107/67 113/73 Pulse Oximetry 100 98 98 05/15/18 11:09 05/15/18 12:00 Temperature 98.3 F Pulse Rate 87 91 H Respiratory Rate 16 18 Blood Pressure 110/71 107/66 Pulse Oximetry 98 98 Intake & Output 05/14/18 05/15/18 05/15/18 18:59 06:59 18:59 Intake Total 1200 / 1200 2000 / 1999 Output Total 1400 / 1400 575 / 575 300 / 300 Balance -1400 / -1400 625 / 625 1700 / 1700 Weight 63.503 kg 53.5 kg Intake: IV 1000 / 1000 1999 / 1999 LR 1000 mL Inj 1,000 ML @ 80 1000 / 1000 mls/hr IV.CONT .[id number] [facility] Rx# :[id number] NS Inj 1,000 ML @ 100 mls/hr IV 1000 / 1000 1000 / 1000 .CONT .Q10H [facility] Rx#:[id number] Other 200 / 200 Rbc As-3 Leukoreduced Unit 100 / 100 [id number] Rbc As-3 Leukoreduced Unit 100 / 100 [id number] Intake (Blood Product) Amt 0 / 0 Rbc As-3 Leukoreduced Unit 0 / 0 [id number] Rbc As-3 Leukoreduced Unit 0 / 0 [id number] Rbc As-3 Leukoreduced Unit 0 / 0 [id number] Output: Urine 1400 / 1400 575 / 575 Estimated Blood Loss 100 / 100 Urine Amount (Catheter) 200 / 200 Indwelling Urethral Catheter 200 / 200 Other: Date of Last Bowel Movement 05/13/18 Weight On Admission 53.524 kg Laboratory Results - last 24 hr 05/14/18 05/14/18 05/14/18 16:50 18:05 19:36 WBC RBC Hgb 7.0 L D 7.4 L Hct 20.0 L* 21.8 L MCV MCH MCHC RDW Plt Count MPV Blood Type B Positive Antibody Screen Negative MTS Gel Crossmatch See Detail 05/15/18 05/15/18 11:40 14:07 WBC 6.5 RBC 3.71 L Hgb 11.2 L D 11.2 L Hct 32.3 L 33.0 L MCV 89.1 MCH 30.2 MCHC 33.9 RDW 14.3 Plt Count 191 D MPV 7.0 Blood Type Antibody Screen MTS Gel Crossmatch Impressions Carotid Doppler Study 05/14/18 00:00 CONCLUSION: 1. Right Internal Carotid Artery: No significant stenosis or atherosclerotic plaque is visualized. 2. Left Internal Carotid Artery: No significant stenosis or atherosclerotic plaque is visualized. Chest X-Ray 05/14/18 10:34 CONCLUSION: No acute cardiopulmonary abnormality is identified. Lungs are underinflated with mild subsegmental atelectasis at the bases. Head CT 05/14/18 10:34 CONCLUSION: Unremarkable study. Pelvis X-Ray 05/14/18 10:34 CONCLUSION: Mildly comminuted and displaced left intertrochanteric femur fracture. Hip CT 05/14/18 13:06 CONCLUSION: Extensive complex and comminuted intertrochanteric fracture with overriding of fracture fragments and a dissecting hematoma which dissects into the left years/muscle extending to the level of the Gerota's fascia cephaladly and partially dissecting into left pelvic wall. There is no free fluid and a small bony fragment is present appears to be separate from the common femoral vessels, however slight injury to one of the small branches coming off the superficial femoral vessels is not excluded. Hip CT 05/14/18 15:38 CONCLUSION: 1. No evidence for vascular injury or active bleeding. Hip X-Ray 05/15/18 00:00 CONCLUSION: Improved alignment following left femur ORIF, as above.
[2018-05-15 14:59] LABS: Calcium 7.6 mg/dL (8.5-10.1); Carbon Dioxide 21.3 meq/L (21.0-32.0); Potassium 3.9 meq/L (3.5-5.1)
[2018-05-15] MEDS: Multivitamin/Minerals Therapeutic Tablet PO SCH (20:17)
--- NOTE | 2018-05-15 22:23 | MG ---
cc: Pilo Rodriguez MD ELECTROENCEPHALOGRAM RECORD NUMBER: [id number] DESCRIPTION: An 8-9 Hz activity, 20-40 microvolts followed by background slowing. Theta burst frontal light frequency artifact suggestive of a drowsy state. Vertex waves stage I sleep asynchronous with arms. EEG variability reactivity. Good driving with photic stimulation. Single lead EKG showing sinus rhythm. INTERPRETATION: Normal awake sleep electroencephalogram. Clinical correlation. MD CELESTE Mckeon/ru/ronal , 08:52 PM , 08:56 PM
[2018-05-15] MEDS: Morphine Inj 4 MG/ML Vial IV.PUSH PRN (23:22)
[2018-05-16 04:36] LABS: Hematocrit 29.5 % (35.0-46.0); Hemoglobin 10.3 gm/dL (11.6-15.3)
--- NOTE | 2018-05-16 07:40 | P.PNOP ---
Subjective Interval history: The patient is resting comfortably in bed. The patient does report moderate pain to the left hip. Pain is worse with movement. Physical Exam Vital signs: Vital Signs 05/15/18 10:23 05/15/18 10:30 05/15/18 10:45 Temperature 98.3 F Pulse Rate 94 H 94 H 92 H Respiratory Rate 16 16 16 Blood Pressure 119/74 117/75 107/67 Pulse Oximetry 96 100 98 05/15/18 11:00 05/15/18 11:09 05/15/18 12:00 Temperature 98.3 F Pulse Rate 90 87 91 H Respiratory Rate 16 16 18 Blood Pressure 113/73 110/71 107/66 Pulse Oximetry 98 98 98 05/15/18 16:00 05/15/18 17:00 05/15/18 20:00 Temperature 98.3 F 98.3 F Pulse Rate 84 93 H Respiratory Rate 18 18 Blood Pressure 110/71 116/72 Pulse Oximetry 95 93 L 98 05/15/18 20:59 05/16/18 00:00 05/16/18 00:30 Temperature 98.1 F Pulse Rate 84 Respiratory Rate 17 16 Blood Pressure 110/68 Pulse Oximetry 93 L 96 05/16/18 04:00 Temperature 97.6 F Pulse Rate 87 Respiratory Rate 17 Blood Pressure 102/59 L Pulse Oximetry 97 Intake & Output 05/15/18 05/16/18 05/16/18 18:59 06:59 18:59 Intake Total 2600 / 2600 100 / 100 Output Total 1175 / 1175 1300 / 1300 Balance 1425 / 1425 -1200 / -1200 Intake: IV 2100 / 2100 100 / 100 LR 1000 mL Inj 1,000 ML @ 80 1000 / 1000 mls/hr IV.CONT .[id number] [facility] Rx# :[id number] NS Inj 1,000 ML @ 100 mls/hr IV 1000 / 1000 .CONT .Q10H [facility] Rx#:[id number] Ancef Inj 1,000 MG In NS Inj 100 / 100 100 / 100 100 ML @ 200 mls/hr IV.SIG Q6H [facility] Rx#:[id number] Oral 500 / 500 Output: Urine 1300 / 1300 Estimated Blood Loss 100 / 100 Urine Amount (Catheter) 1075 / 1075 Indwelling Urethral Catheter 1075 / 1075 Other: Date of Last Bowel Movement 05/13/18 05/13/18 Narrative: The patient's dressing is clean, dry, and intact. EHL/TA/G are intact. 2+ pedal pulse. The patient's calf is soft and nontender. Sensation is intact to light touch distally. - Urinary Catheter Management Indwelling Urethral Catheter Cath placed during this visit: yes Reason for continuing: Hourly intake/output Insertion date: 05/14/18 Insertion time: 10:40 Results - Labs CBC & Chem 7: 05/16/18 04:18 05/15/18 14:07 Laboratory Results - last 24 hr 05/15/18 05/15/18 05/15/18 11:40 14:07 14:07 WBC 6.5 RBC 3.71 L Hgb 11.2 L D 11.2 L Hct 32.3 L 33.0 L MCV 89.1 MCH 30.2 MCHC 33.9 RDW 14.3 Plt Count 191 D MPV 7.0 Sodium 131 L Potassium 3.9 Chloride 100 Carbon Dioxide 21.3 Anion Gap 10 BUN 11 Creatinine 0.88 Estimated GFR 67 L Random Glucose 103 Calcium 7.6 L 05/16/18 04:18 WBC RBC Hgb 10.3 L Hct 29.5 L MCV MCH MCHC RDW Plt Count MPV Sodium Potassium Chloride Carbon Dioxide Anion Gap BUN Creatinine Estimated GFR Random Glucose Calcium - Imaging Impressions Hip X-Ray 05/15/18 00:00 CONCLUSION: Improved alignment following left femur ORIF, as above. - Procedures Left hip intramedullary nail Assessment and Plan - Assessment and Plan POD #1: Left intramedullary nail 1. Toe-touch weightbearing on [left] lower extremity. 2. Lovenox followed by aspirin for DVT prophylaxis. 3. Ice as needed for swelling. 4. Stable per ortho for discharge to residential facility once medically stable and medically cleared. 5. The patient will follow up with Dr. Hurd and/or ANNMARIE Lance as previously scheduled.
[2018-05-16] MEDS: Sod Chloride 0.9% Inj 1,000 ML IV.CONT SCH ×2 (08:24→16:05)
[2018-05-16] MEDS: Multivitamin/Minerals Therapeutic Tablet PO SCH ×2 (09:39→20:55)
[2018-05-16] MEDS: Senna/Docusate Sodium 8.6/50 MG Tablet PO SCH ×2 (09:40→20:54)
[2018-05-16] MEDS: Enoxaparin Inj 40 MG/0.4 ML Syringe SQ SCH (09:40)
[2018-05-16] MEDS: Morphine Inj 4 MG/ML Vial IV.PUSH PRN ×2 (10:45→20:55)
--- NOTE | 2018-05-16 12:36 | P.PN ---
Subjective Interval history: Follow-up visit for left hip fracture, pelvic hematoma, possible syncopal episode resulting in fall. Patient is postop day 1, seen and examined resting in bed, appears to be in no acute distress. She denies any shortness of breath , cough, fevers, chills, nausea, vomiting, diarrhea or abdominal pain. Patient reports that her pain has been well controlled, did ambulate with physical therapy. Denies any dizziness or lightheadedness standing or changing positions with help of physical therapy but also acknowledges the fact that she is changing positions much more slowly than she would at home. Physical Exam Vital signs: Vital Signs 05/15/18 16:00 05/15/18 17:00 05/15/18 20:00 Temperature 98.3 F 98.3 F Pulse Rate 84 93 H Respiratory Rate 18 18 Blood Pressure 110/71 116/72 Pulse Oximetry 95 93 L 98 05/15/18 20:59 05/16/18 00:00 05/16/18 00:30 Temperature 98.1 F Pulse Rate 84 Respiratory Rate 17 16 Blood Pressure 110/68 Pulse Oximetry 93 L 96 05/16/18 04:00 Temperature 97.6 F Pulse Rate 87 Respiratory Rate 17 Blood Pressure 102/59 L Pulse Oximetry 97 Intake & Output 05/15/18 05/16/18 05/16/18 18:59 06:59 18:59 Intake Total 2600 / 2600 100 / 100 350 / 350 Output Total 1175 / 1175 1300 / 1300 Balance 1425 / 1425 -1200 / -1200 350 / 350 Intake: IV 2100 / 2100 100 / 100 350 / 350 LR 1000 mL Inj 1,000 ML @ 80 1000 / 1000 mls/hr IV.CONT .[id number] [facility] Rx# :[id number] NS Inj 1,000 ML @ 100 mls/hr IV 1000 / 1000 .CONT .Q10H [facility] Rx#:[id number] Ancef Inj 1,000 MG In NS Inj 100 / 100 100 / 100 100 / 100 100 ML @ 200 mls/hr IV.SIG Q6H [facility] Rx#:[id number] Oral 500 / 500 Output: Urine 1300 / 1300 Estimated Blood Loss 100 / 100 Urine Amount (Catheter) 1075 / 1075 Indwelling Urethral Catheter 1075 / 1075 Other: Date of Last Bowel Movement 08/20/18 08/20/18 Narrative: GENERAL: Well developed, well-nourished, female sitting up in chair in no acute distress. SKIN: Warm and dry. HEAD: Atraumatic. Normocephalic. EYES: Pupils equal,round reactive. No scleral icterus. No injection or drainage. ENT: No nasal bleeding or discharge. Mucous membranes pink and moist. NECK: Trachea midline. CARDIOVASCULAR: Regular rate and rhythm. RESPIRATORY: No accessory muscle use. Clear to auscultation. Breath sounds equal bilaterally. GASTROINTESTINAL: Abdomen soft, non-tender, nondistended. + bowel sounds MUSCULOSKELETAL: Extremities without clubbing, cyanosis, or edema. Left hip dressing dry and intact, + pedal pulse, capillary refill < 3 seconds. NEUROLOGICAL: Awake, alert and oriented. No obvious cranial nerve deficits. Sensation to left lower extremity intact, leg is warm, capillary refill less than 3 seconds. Normal speech. - Urinary Catheter Management Indwelling Urethral Catheter Cath placed during this visit: yes Reason for continuing: Hourly intake/output Insertion date: 05/14/18 Insertion time: 10:40 Results - Labs CBC & Chem 7: 05/16/18 04:18 05/15/18 14:07 Laboratory Results - last 24 hr 05/15/18 05/15/18 05/15/18 11:40 14:07 14:07 WBC 6.5 RBC 3.71 L Hgb 11.2 L D 11.2 L Hct 32.3 L 33.0 L MCV 89.1 MCH 30.2 MCHC 33.9 RDW 14.3 Plt Count 191 D MPV 7.0 Sodium 131 L Potassium 3.9 Chloride 100 Carbon Dioxide 21.3 Anion Gap 10 BUN 11 Creatinine 0.88 Estimated GFR 67 L Random Glucose 103 Calcium 7.6 L 05/16/18 04:18 WBC RBC Hgb 10.3 L Hct 29.5 L MCV MCH MCHC RDW Plt Count MPV Sodium Potassium Chloride Carbon Dioxide Anion Gap BUN Creatinine Estimated GFR Random Glucose Calcium - Procedures Left hip intramedullary nail Assessment and Plan - Assessment (1) Fall with injury Code(s): W19.XXXA - Unspecified fall, initial encounter Status: Acute (2) Fracture of femur Code(s): S72.90XA - Unspecified fracture of unspecified femur, initial encounter for closed fracture Status: Acute (3) Altered mental state Code(s): R41.82 - Altered mental status, unspecified Status: Acute (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 According to ER documentation patient was unable to remember how and when fall occurred, patient also reported taking Xanax for pain since she had ran out of her pain medication. Fall resulting in left hip fracture Anemia, acute due to hematoma - X-ray of pelvis revealed minimally, comminuted and displaced left intratrochanteric femur fracture -Consult placed for orthopedic services, appreciate assistance -CT of hip revealed extensive complete ankle comminuted intertrochanteric fracture with overlying fracture fragments and dissecting hematoma. Injury to vascular branches cannot be excluded per radiologist. -Vascular surgery consulted for possible injury, seen and evaluated by Dr. Mahmood, recommends continuing with orthopedic surgery, H&H has been stable, vascular surgery has signed off. -Anemia noted on labs, drop in H&H to 7.0 s/p transfusion of 3 units of PRBCs recheck H&H this a.m 10.3/29.5 - s/p left hip treatment with IM nailing 05/15 by -Pain control p.o. [place], IV morphine for breakthrough pain Fall ? syncopal episode AMS -Patient reported taking Xanax for pain, toxicology screen positive for benzodiazepines - E-forced checked, prescription for alprazolam 1 mg tablet with quantity of 90 filled on 05/12, methylphenidate 20 mg tablets quantity of 60 last filled on 04/26 , diazepam 5 mg tablets with a quantity of 30 last filled on 04/17 -CT of the head negative, UA negative, ammonia <10 - EEG negative, bilateral carotid ultrasound negative for significant stenosis -Monitor on telemetry, 2D echo -Fall and AMS most likely secondary to Xanax misuse - Fall precautions Hypernatremia Elevated total CK, mild -NA on admission 127, NS at 100 and hour - NA improved to 131 Multiple sclerosis -stable at the moment DVT prophylaxis-per Ortho Lovenox Discussed Condition With: Patient and unloader operator Planning: Patient has been cleared by orthopedic services for discharge. Syncopal workup still in progress. Patient likely to be discharged to long-term facility , adult protective caseworker arranging.
--- NOTE | 2018-05-16 17:11 | ECHRPT ---
Indication: CVA/TIA CONCLUSIONS Normal left ventricular size. The left ventricular systolic function is normal with an estimated ejection fraction in the range of 55-60%. Wall thickness is normal. Mild mitral valve regurgitation. Trace aortic valve regurgitation. There is mild tricuspid valve regurgitation. The estimated pulmonary arterial pressure is 34.2 mmHg. Trivial pulmonary valve regurgitation. BP: / HR: Rhythm: Sinus MEASUREMENTS (Male / Female) Normal Values Technical Quality:Fair 2D ECHO LV Diastolic Diameter PLAX 4.6 cm 4.2 - 5.9 / 3.9 - 5.3 cm LV Systolic Diameter PLAX 3.5 cm IVS Diastolic Thickness 0.7 cm 0.6 - 1.0 / 0.6 - 0.9 cm LVPW Diastolic Thickness 0.7 cm 0.6 - 1.0 / 0.6 - 0.9 cm LV Relative Wall Thickness 0.3 RV Internal Dim ED PLAX 2.7 cm LVOT Diameter 1.8 cm Aortic Root Diameter 2.8 cm LA Systolic Diameter LX 2.5 cm 3.0 - 4.0 / 2.7 - 3.8 cm M-MODE AV Cusp Separation MM 2.0 cm DOPPLER AV Peak Velocity 138.0 cm/s AV Peak Gradient 7.6 mmHg AV Mean Gradient 4.0 mmHg AV Velocity Time Integral 24.2 cm LVOT Peak Velocity 108.0 cm/s LVOT Peak Gradient 4.7 mmHg LVOT Velocity Time Integral 18.5 cm AV Area Cont Eq vti 1.9 cm AV Area Cont Eq pk 2.0 cm Mitral E Point Velocity 84.4 cm/s Mitral A Point Velocity 64.7 cm/s Mitral E to A Ratio 1.3 LV E' Lateral Velocity 14.2 cm/s Mitral E to LV E' Lateral Ratio 5.9 LV E' Septal Velocity 9.5 cm/s Mitral E to LV E' Septal Ratio 8.9 TR Peak Velocity 246.0 cm/s TR Peak Gradient 24.2 mmHg Right Atrial Pressure 10.0 mmHg Pulmonary Artery Systolic Pressu 34.2 mmHg Right Ventricular Systolic Press 34.2 mmHg PV Peak Velocity 56.4 cm/s PV Peak Gradient 1.3 mmHg FINDINGS LEFT VENTRICLE Normal left ventricular size. The left ventricular systolic function is normal with an estimated ejection fraction in the range of 55-60%. Wall thickness is normal. RIGHT VENTRICLE Normal right ventricular size and systolic function. LEFT ATRIUM The left atrial size is normal. RIGHT ATRIUM The right atrial size is normal. ATRIAL SEPTUM No atrial level shunt is demonstrated by color flow Doppler interrogation. AORTA The aortic root and proximal ascending aorta are normal in size on limited imaging. MITRAL VALVE Mild mitral valve regurgitation. AORTIC VALVE Trace aortic valve regurgitation. TRICUSPID VALVE There is mild tricuspid valve regurgitation. The estimated pulmonary arterial pressure is 34.2 mmHg. PULMONARY VALVE Trivial pulmonary valve regurgitation. VESSELS The inferior vena cava is normal in size. PERICARDIUM No pericardial effusion. Kojo Baca MD, FACC (Electronically Signed) Final Date:16 May 2018 17:10
[2018-05-17] MEDS: Sod Chloride 0.9% Inj 1,000 ML IV.CONT SCH ×2 (04:33→15:14)
[2018-05-17 04:52] LABS: Hemoglobin 10.2 gm/dL (11.6-15.3)
[2018-05-17 05:11] LABS: Calcium 7.7 mg/dL (8.5-10.1); Carbon Dioxide 23.8 meq/L (21.0-32.0); Potassium 3.4 meq/L (3.5-5.1)
[2018-05-17] MEDS: Morphine Inj 4 MG/ML Vial IV.PUSH PRN ×2 (05:49→08:44)
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
[2018-05-17 10:27] VITALS: RESP 18
[2018-05-17] MEDS: Multivitamin/Minerals Therapeutic Tablet PO SCH (10:27)
[2018-05-17] MEDS: Senna/Docusate Sodium 8.6/50 MG Tablet PO SCH (10:29)
[2018-05-17] MEDS: Enoxaparin Inj 40 MG/0.4 ML Syringe SQ SCH (10:29)
--- NOTE | 2018-05-17 11:32 | P.PNOP ---
Subjective Interval history: The patient is resting comfortably in bed in no acute distress. The patient is tearful this morning as she is wanting to go home with home health to see her sister who is terminally ill. The patient reports still having a moderate amount of pain to the left hip. Physical Exam Vital signs: Vital Signs 05/16/18 12:00 05/16/18 14:36 05/16/18 16:00 Temperature 97.5 F L 98 F Pulse Rate 93 H 83 Respiratory Rate 18 18 Blood Pressure 117/55 L 130/60 Pulse Oximetry 94 L 95 93 L 05/16/18 20:00 05/17/18 00:00 05/17/18 01:00 Temperature 98.2 F 98.3 F Pulse Rate 89 91 H Respiratory Rate 18 18 16 Blood Pressure 107/69 112/73 Pulse Oximetry 93 L 96 05/17/18 04:00 05/17/18 06:29 05/17/18 08:46 Temperature 98.4 F Pulse Rate 89 Respiratory Rate 18 17 18 Blood Pressure 118/71 Pulse Oximetry 94 L Intake & Output 05/16/18 05/17/18 05/17/18 18:59 06:59 18:59 Intake Total 350 / 350 140 / 140 Output Total 1100 / 1100 Balance -750 / -750 140 / 140 Weight 53.52 kg Intake: IV 350 / 350 Ancef Inj 1,000 MG In NS Inj 100 / 100 100 ML @ 200 mls/hr IV.SIG Q6H FLOR Rx#:[id number] Oral 140 / 140 Output: Urine 1100 / 1100 Other: # Voids 0 Date of Last Bowel Movement 05/13/18 Narrative: The patient's dressing is clean, dry, and intact. EHL/TA/G are intact. 2+ pedal pulse. The patient's calf is soft and nontender. Sensation is intact to light touch distally. Moderate swelling and ecchymosis to the left hip and buttock region. - Urinary Catheter Management Indwelling Urethral Catheter Cath placed during this visit: yes Reason for continuing: Hourly intake/output Insertion date: 05/14/18 Insertion time: 10:40 Results - Labs CBC & Chem 7: 05/17/18 03:41 05/17/18 03:41 Laboratory Results - last 24 hr 05/17/18 05/17/18 03:41 03:41 Hgb 10.2 L Hct 30.0 L Sodium 136 Potassium 3.4 L Chloride 102 Carbon Dioxide 23.8 Anion Gap 10 BUN 9 Creatinine 0.71 Estimated GFR 86 L Random Glucose 87 Calcium 7.7 L - Procedures Left hip intramedullary nail Assessment and Plan - Assessment and Plan POD #2: Left intramedullary nail 1. Toe-touch weightbearing on [left] lower extremity. 2. Lovenox followed by aspirin for DVT prophylaxis. 3. Ice as needed for swelling. 4. Stable per ortho for discharge to [facility] once medically stable and medically cleared. Potential discharge later today. 5. The patient will follow up with Dr. Hurd and/or ANNMARIE Lance as previously scheduled.
[2018-05-17 12:28] VITALS: BP 127/74; PULSE 99; TEMP 98.2
[2018-05-17 13:43] VITALS: O2SAT 93
== END 2018-05-17 17:52 ==
LOC: NEPE 10:22 → NEDA 13:23 → N06 20:24
PROVIDERS: ADMIT Internal Medicine; ATTEND Internal Medicine

== ENCOUNTER 2018-08-19 23:38 | Inpatient (IN) ==
[2018-08-20] MEDS ORDERED: Morphine Inj 4 MG/ML Vial IV.PUSH ONE (00:39)
[2018-08-20 01:02] LABS: Baso % (Auto) 0.2 % (0.0-2.0); Lymph # (Auto) 0.5 th/mm3 (1.0-4.8); Lymph % (Auto) 5.5 % (9.0-44.0); Mean Corpuscular HGB Conc 36.4 % (32.0-36.0); Mean Corpuscular Hemoglobin 33.1 pg (27.0-34.0); Mean Platelet Volume 6.8 fL (7.0-11.0); Mono # (Auto) 0.4 th/mm3 (0.0-0.9); Mono % (Auto) 4.4 % (0.0-8.0); Neut # (Auto) 8.8 th/mm3 (1.8-7.7); Neut % (Auto) 89.9 % (16.0-70.0); Platelet Count 396 th/mm3 (150-450); Red Blood Count 1.99 mil/mm3 (4.00-5.30); Red Cell Distribution Width 15.5 % (11.6-17.2); White Blood Count 9.8 th/mm3 (4.0-11.0)
--- NOTE | 2018-08-20 01:04 | ED ---
HPI General Chief Complaint: Extremity Injury, Lower Stated Complaint: Medical Time Seen by Provider: 08/20/18 00:26 Source: patient, EMS and old records reviewed Mode of arrival: EMS Limitations: physical limitation and other (uncooperative) History of Present Illness HPI Narrative: The pateint is a 53 year-old female status post left total hip replacement after she had failed initial intramedullary nail. While patient was here she had a psychiatric consultation because apparently she was not acting right. She was discharged home and stated that she fell yesterday morning around 10 while running off the bed and has not been able to ambulate since then. Arrived by EMS in distress due to left hip pain. Denies LOC or head injury. There is notes from PT that the patient requires supervision at home for safety on discharge. Unknown whether the patient was supervised at home. MD complaint: Reports hip injury Injury: Left: hip Type of Injury: Reports unknown Place: Reports home Severity: severe Severity scale (1-10): 10 Relieving factors: nothing Exacerbating factors: movement and palpation Context: Reports fall Associated symptoms: Reports unable to bear weight; Denies snap/pop sensation, swelling and ambulatory Other symptoms: Denies loss of consciousness, chest pain and confusion Related Data Home Medications Medication Instructions Recorded Confirmed baclofen 20 mg PO TID 05/29/18 08/19/18 bupropion HCl [Wellbutrin XL] 300 mg PO TID 05/29/18 08/19/18 fluoxetine [Prozac] 40 mg PO DAILY 05/29/18 08/19/18 gabapentin 300 mg PO TID 05/29/18 08/19/18 Latuda 60 mg PO DAILY 08/16/18 08/19/18 benztropine 2 mg PO BID 08/16/18 08/19/18 diazepam 5 mg PO Q6HR PRN 08/16/18 08/19/18 pentoxifylline 400 mg PO DAILY 08/16/18 08/19/18 Previous Rx's Medication Instructions Recorded hydrocodone-acetaminophen [[place]] 1 tab PO Q6H PRN #10 tab 06/03/18 aspirin 325 mg PO DAILY 30 Days #30 tab 08/14/18 hydrocodone-acetaminophen [[place]] 1 - 2 tab PO Q4-6H #50 tab 08/14/18 Allergies Allergy/AdvReac Type Severity Reaction Status Date / Time No Known Allergies Allergy Verified 08/19/18 23:43 Review of Systems ROS: all other systems reviewed are negative [facility] Medical History Medical History Anxiety (Acute) Back pain (Acute) Depression (Acute) History of MRSA infection (Acute) Joint pain (Acute) Multiple sclerosis (Acute) Neck pain (Acute) Wears glasses (Acute) Surgical History Surgical History History of fusion of cervical spine (Acute) History of hip surgery (Acute) History of tubal ligation (Acute) Social History Social History Substance History: Past History Second Hand Smoke Exposure: Yes Smoking Status: Current every day smoker Tobacco Type: Cigarettes How Often Do You Have a Drink Containing Alcohol: Never Recent Travel in [facility] within the Last 8 Weeks: No Recent Out of Country Travel within the Last 8 Weeks: No Immunization History Tetanus Immunization: <5 Years Exam Narrative Exam Narrative: GENERAL: Alert and oriented in distress uncooperative thrashing around. SKIN: Focused skin assessment warm/dry. left HIP surgery incision appears clean dry and intact HEAD: Atraumatic. Normocephalic. EYES: Pupils equal and round. No scleral icterus. No injection or drainage. ENT: No nasal bleeding or discharge. Mucous membranes pink and moist. NECK: Trachea midline. No JVD. CARDIOVASCULAR: Regular rate and rhythm. No murmur appreciated. palpable pulses Dorsalis Pedis and Post Tibialis B/L, Sensation intact bilateral LE. Cap refill equal bilateral RESPIRATORY: No accessory muscle use. Clear to auscultation. Breath sounds equal bilaterally. GASTROINTESTINAL: Abdomen soft, non-tender, nondistended. Hepatic and splenic margins not palpable. MUSCULOSKELETAL: palpable pulses Dorsalis Pedis and Post Tibialis B/L, Sensation intact bilateral LE. Cap refill equal bilateral. Left lower extremity is shortened and externally rotated. No clubbing. No cyanosis. No edema. Tenderness palpation over the left lateral hip with obvious deformity. Swelling noted but there is no compartment syndrome signs at this time. NEUROLOGICAL: Awake and alert. No obvious cranial nerve deficits. Motor grossly within normal limits. Normal speech. Psych Appearance: disheveled Speech and Movement: restless Mood: manic mood Affect: anxious affect Attitude: belligerent Thought Process: illogical Thought Content: no homicidality and suicidality Judgment: poor Procedures Orthopedic Joint Reduction Joint #1: Time Out Performed: Yes Side: left Joint Reduction Location: hip Analgesia: procedural sedation Technique Used: traction/counter-traction and direct manipulation Post-Reduction Neuro Exam: no change Post-Reduction Vascular Exam: no change Post Reduction X-Ray Obtained: No (unsusccesful) Post Reduction X-Ray Results: not reduced Patient Tolerated Procedure: well Additional Comments: Unable to reduce left anterior hip dislocation with conscious sedation with ketamine. Procedural Sedation Indications: fracture/dislocation reduction ASA Class: ASA 2 Moderate Systemic Disease Preparation: panel monitor applied, pulse oximeter, capnometry used, supplemental O2 applied, suction/airway equipment at bedside and IV secured Ketamine dose (mg): 150 Patient Tolerated Procedure: well and no complications Complications: none Course Consultations Consultation #1: recommends to attempt reduction in the ED Time: 01:57 Initial Documented Vital Signs Temperature 98.0 F 08/19/18 23:48 Pulse Rate 98 H 08/19/18 23:48 Respiratory Rate 16 08/19/18 23:48 Blood Pressure 123/78 08/19/18 23:48 Pulse Oximetry 100 08/19/18 23:48 Last Documented Vital Signs Temperature 98.5 F 08/20/18 06:23 Pulse Rate 104 H 08/20/18 06:23 Respiratory Rate 20 08/20/18 06:23 Blood Pressure 123/74 08/20/18 06:23 Pulse Oximetry 98 08/20/18 06:23 Critical Care Time Critical Care Time: Yes Total Critical Care Time: 35 Attestation: Aggregate critical care time was aggregate critical care time was 30 minutes. Time to perform other separately billable procedures was not included in the critical care time. My time did not include minutes spent treating any other patients simultaneously or on activities that did not directly contribute to the patient's treatment. The services I provided to this patient were to treat and/or prevent clinically significant deterioration that could result in: permanent disability and or I provided critical care services requiring my management, as noted below: Chart data review, documentation time, medication orders and management, vital sign assessments/reviewing monitor data, ordering and reviewing lab tests, ordering and interpreting/reviewing x-rays and diagnostic studies, care of the patient and discussion of the patient with the admitting physicians. Minutes. Time to perform other separately billable procedures was not included in the critical care time. My time did not include minutes spent treating any other patients simultaneously or on activities that did not directly contribute to the patient's treatment. Medical Decision Making MDM Narrative Medical decision making narrative: This was a very challenging patient to take care of due to not being cooperative with medical treatment. She has a dislocated left hip prosthesis that we attempted to reduce in the ED under ketamine sedation unsuccessfully. Of note the patient stated that her hip has been out all day. In addition to that her hemoglobin is 6.6 and was 8.3 on discharge 3 days ago. Patient refused rectal exam. 2 units of blood were transfused. Ortho was consulted and recommended reduction. Mild anion gap of 19 noted. Potassium 3.3. The patient was given ketamine for the conscious sedation and analgesia. She was given morphine. She was given Haldol for acting belligerent and after that she was placed on four-point restraints because she was observed several times to try to get off the bed which will further exacerbate her injuries. She did have a recent psychiatric evaluation but appears that she was okay to be sent home. I find it highly unlikely that this patient will do well at home without constant supervision. I have strong doubts that she can perform ADLs independently and so that she has the ability to make decisions. I do recommend placement to long-term rehab facility. Medical Screen Exam Complete: Yes Emergency Medical Condition: Yes Lab Data Lab results reviewed: Yes I reviewed the patient's lab results. Result diagrams: 08/20/18 00:19 08/20/18 00:19 Lab Results 08/20/18 08/20/18 08/20/18 Range/Units 00:19 00:19 00:19 WBC 9.8 (4.0-11.0) th/mm3 RBC 1.99 L (4.00-5.30) mil/mm3 Hgb 6.6 L* (11.6-15.3) gm/dL Hct 18.1 L* (35.0-46.0) % MCV 91.0 (80.0-100.0) fL MCH 33.1 (27.0-34.0) pg MCHC 36.4 H (32.0-36.0) % RDW 15.5 (11.6-17.2) % Plt Count 396 D (150-450) th/mm3 MPV 6.8 L (7.0-11.0) fL Prelim Diff (Auto) Slide review pending Neut % (Auto) 89.9 H (16.0-70.0) % Lymph % (Auto) 5.5 L (9.0-44.0) % [place] % (Auto) 4.4 (0.0-8.0) % Eos % (Auto) 0.0 (0.0-4.0) % Baso % (Auto) 0.2 (0.0-2.0) % Neut # (Auto) 8.8 H (1.8-7.7) th/mm3 Lymph # (Auto) 0.5 L (1.0-4.8) th/mm3 [place] # (Auto) 0.4 (0.0-0.9) th/mm3 Eos # (Auto) 0.0 (0.0-0.4) th/mm3 Baso # (Auto) 0.0 (0.0-0.2) th/mm3 WBC Differential . Diff Scan Auto diff confirmed Differential Comment . Platelet Estimate Normal (Normal) Platelet Morphology Normal (Normal) Sodium 138 (136-145) meq/L Potassium 3.3 L (3.5-5.1) meq/L Chloride 105 (98-107) meq/L Carbon Dioxide 14.0 L (21.0-32.0) meq/L Anion Gap 19 H (5-15) meq/L BUN 13 (7-18) mg/dL Creatinine 0.76 (0.50-1.00) mg/dL Estimated GFR 79 L (>89) mL/min Random Glucose 67 L (74-106) mg/dL Calcium 8.2 L (8.5-10.1) mg/dL Serum Alcohol Less than 3 (0-5) mg/dL Blood Type Antibody Screen MTS Gel Crossmatch 08/20/18 Range/Units 01:24 WBC (4.0-11.0) th/mm3 RBC (4.00-5.30) mil/mm3 Hgb (11.6-15.3) gm/dL Hct (35.0-46.0) % MCV (80.0-100.0) fL MCH (27.0-34.0) pg MCHC (32.0-36.0) % RDW (11.6-17.2) % Plt Count (150-450) th/mm3 MPV (7.0-11.0) fL Prelim Diff (Auto) Neut % (Auto) (16.0-70.0) % Lymph % (Auto) (9.0-44.0) % [place] % (Auto) (0.0-8.0) % Eos % (Auto) (0.0-4.0) % Baso % (Auto) (0.0-2.0) % Neut # (Auto) (1.8-7.7) th/mm3 Lymph # (Auto) (1.0-4.8) th/mm3 [place] # (Auto) (0.0-0.9) th/mm3 Eos # (Auto) (0.0-0.4) th/mm3 Baso # (Auto) (0.0-0.2) th/mm3 WBC Differential Diff Scan Differential Comment Platelet Estimate (Normal) Platelet Morphology (Normal) Sodium (136-145) meq/L Potassium (3.5-5.1) meq/L Chloride (98-107) meq/L Carbon Dioxide (21.0-32.0) meq/L Anion Gap (5-15) meq/L BUN (7-18) mg/dL Creatinine (0.50-1.00) mg/dL Estimated GFR (>89) mL/min Random Glucose (74-106) mg/dL Calcium (8.5-10.1) mg/dL Serum Alcohol (0-5) mg/dL Blood Type B Positive Antibody Screen Negative MTS Gel Crossmatch See Detail Imaging Data Radiologist's impression: Hip X-Ray 08/20/18 00:39 CONCLUSION: Superior dislocation of prosthetic left hip. Chest X-Ray 08/20/18 00:40 CONCLUSION: No acute findings. Previous fusion across the cervicothoracic junction. ECG Data Attestation: I personally reviewed and interpreted this ECG as follows: Interpretation: Sinus tachycardia 108 bpm. SD interval 159 ms. QTc [address]-T wave abnormalities. No signs of acute ischemia. Left atrial enlargement Discharge Plan Discharge Disposition Patient Disposition: 30 Still Patient Discharge Condition Condition: Fair Discharge Details Diagnosis: Anterior dislocation of left hip, Anemia Physicians Team ED Provider: Fernando Andrews Primary Care Provider: Otto Gilbert Attending Provider: Francy Lauren Other Providers: Cooper Gamboa ; Karla Garcia Status ED Status: Admitted Patient
[2018-08-20 01:05] LABS: Hematocrit 18.1 % (35.0-46.0); Hemoglobin 6.6 gm/dL (11.6-15.3)
[2018-08-20 01:11] LABS: Calcium 8.2 mg/dL (8.5-10.1); Potassium 3.3 meq/L (3.5-5.1)
--- NOTE | 2018-08-20 01:31 | XR ---
EXAM DATE: 08/20/2018 1:23 AM EST AGE/SEX: 53 years / Female INDICATIONS: Left hip pain post fall three days ago. CLINICAL DATA: This is the patient's initial encounter. Patient reports that signs and symptoms have been present for 3 days and indicates a pain score of 10/10. MEDICAL/SURGICAL HISTORY: Multiple sclerosis. Smoker. Fusion, cervical. Tubal ligation. Left total hip replacement. COMPARISON: No prior exams available for comparison. FINDINGS: There is dislocation of the prosthetic femoral head from the prosthetic acetabulum at the left hip re placement. Right hip intact. No acute fracture identified. CONCLUSION: Superior dislocation of prosthetic left hip. Electronically signed by: Ryder Maldonado MD 08/20/2018 1:29 AM EST
--- NOTE | 2018-08-20 01:38 | XR ---
EXAM DATE: 08/20/2018 1:26 AM EST AGE/SEX: 53 years / Female INDICATIONS: Evaluate for pneumonia, pneumothorax or communicable disease. Shortness of breath. CLINICAL DATA: This is the patient's initial encounter. Patient reports that signs and symptoms have been present for 1 day and indicates a pain score of 0/10. MEDICAL/SURGICAL HISTORY: Multiple sclerosis. Smoker. Fusion, cervical. Tubal ligation. Left total hip replacement. COMPARISON: [facility] [place], CHEST 1V SINGLE AP, 05/14/2018. . FINDINGS: A single AP view of the chest demonstrates the lungs to be symmetrically aerated without evidence of mass, infiltrate or effusion. The cardiomediastinal contours are unremarkable. Osseous structures a re intact. CONCLUSION: No acute findings. Previous fusion across the cervicothoracic junction. Electronically signed by: Ryder Maldonado MD 08/20/2018 1:37 AM EST
[2018-08-20] MEDS ORDERED: Sod Chloride 0.9% Inj 1,000 ML IV.SIG ONE ×2 (01:42→04:17)
[2018-08-20] MEDS ORDERED: Sodium Chlor 0.9% Inj 250 ML IV.SIG SCH (02:00)
[2018-08-20] MEDS ORDERED: Ketamine Inj 50 MG/5 ML Syringe IV.PUSH ONE (02:06)
[2018-08-20 02:23] LABS: Platelet Estimate Normal (Normal); Platelet Morphology Normal (Normal)
[2018-08-20] MEDS ORDERED: Haloperidol Inj 5 MG/ML Ampul IM ONE (03:35)
[2018-08-20] MEDS ORDERED: Bisacodyl 10 MG Supp RECTAL PRN (04:35)
[2018-08-20] MEDS ORDERED: Acetaminophen 325 MG Tablet PO PRN (04:35)
[2018-08-20] MEDS ORDERED: Sod Chloride 0.9% Inj 1,000 ML IV.CONT SCH (04:45)
[2018-08-20] MEDS: KCL 20 mEq/D5W/LR Inj 1,000 ML IV.CONT SCH ×3 (05:18→21:28)
[2018-08-20] MEDS: Morphine Sulfate Inj 2 MG/ML Vial IV.PUSH PRN ×2 (05:18→16:54)
--- NOTE | 2018-08-20 07:12 | P.CONOP ---
[facility] Orthopedics Consult Note - [facility] Consult date: 08/20/18 Chief complaint: Anemia, Left Hip Dislocation Narrative: Katerina is a 53-year-old female. She had a hip fracture that was initially treated with intramedullary nail fixation. She was subsequently converted to a left total hip arthroplasty. She presented to the ER with left hip pain x-rays revealed a left hip dislocation. She underwent attempted closed reduction in the emergency department last night. Closed reduction attempts failed. She is currently in the emergency department. She is in restraints. She has had a psychiatric consultation because of her unusual behavior. She complains of left hip pain. Pain is worse with movement. Pain is improved with rest. Review of Systems Patient denies fevers, chills, weight loss, headache, visual changes, hearing loss, chest pain, palpitations, shortness of breath, nausea, vomiting, no urinary changes, diarrhea, bowel changes, neck pain, back pain, skin rashes, weakness of extremities, easy bleeding, enlarged lymph nodes, numbness of extremities, anxiety, or depression. She complains of left hip pain Patient's social history, past medical history, and family history were reviewed on chart and with patient. [facility] - History History Provided By: Patient - Medical History Medical History: Medical History (Last Reviewed 08/20/18 @ 07:09 by Monty Dexter MD) Anxiety Back pain Depression History of MRSA infection Joint pain Multiple sclerosis Neck pain Wears glasses - Surgical History Surgical History: Surgical History (Last Reviewed 08/20/18 @ 07:09 by Monty Dexter MD) History of fusion of cervical spine History of hip surgery History of tubal ligation - Family History Family History: Family History (Last Updated 08/20/18 @ 07:09 by Monty Dexter MD) Other Family history non-contributory - Social History I have reviewed the patient's Social History: Yes - Tobacco History Second Hand Smoke Exposure: Yes Tobacco Use In Past 30 Days: No Smoking Status: Current every day smoker Tobacco Type: Cigarettes - Alcohol History How Often Do You Have a Drink Containing Alcohol: Never - Substance Use History Substance History: Past History - Travel History Recent Travel in the [place] Within the Last 8 Weeks: No Recent Travel Out of the Country Within the Last 8 Weeks: No - Immunization History Tetanus Immunization: <5 Years Medications and Allergies Active Medications: Active Medications Acetaminophen (Tylenol) 650 mg PO Q4H PRN PRN Reason: Temp > 100.4 Bisacodyl (Dulcolax Supp) 10 mg RECTAL DAILY PRN PRN Reason: SEVERE CONSITIPATION Sodium Chloride (Ns Inj) 250 mls @ 15 mls/hr IV.SIG ONCE FLOR Stop: 08/20/18 18:39 Last Admin: 08/20/18 03:00 Dose: 15 mls/hr Potassium Cl/Dextrose/Lact Ringer's (D5w/Lr + Kcl 20 Meq Inj) 1,000 mls @ 125 mls/hr IV.CONT .Q8H FLOR Last Admin: 08/20/18 05:18 Dose: 125 mls/hr Morphine Sulfate (Morphine Inj) 2 mg IV.PUSH Q3H PRN PRN Reason: pain > 3 Last Admin: 08/20/18 05:18 Dose: 2 mg Ondansetron HCl (Zofran Inj) 4 mg IV.PUSH Q6H PRN PRN Reason: NAUSEA OR VOMITING Sennosides (Senokot) 17.2 mg PO Q12H PRN PRN Reason: Moderate Constipation Allergies Allergy/AdvReac Type Severity Reaction Status Date / Time No Known Allergies Allergy Verified 08/19/18 23:43 Home Medications Medication Instructions Recorded Confirmed Type baclofen 20 mg PO TID 05/29/18 08/19/18 History bupropion HCl [Wellbutrin XL] 300 mg PO TID 05/29/18 08/19/18 History fluoxetine [Prozac] 40 mg PO DAILY 05/29/18 08/19/18 History gabapentin 300 mg PO TID 05/29/18 08/19/18 History Latuda 60 mg PO DAILY 08/16/18 08/19/18 History benztropine 2 mg PO BID 08/16/18 08/19/18 History diazepam 5 mg PO Q6HR PRN 08/16/18 08/19/18 History pentoxifylline 400 mg PO DAILY 08/16/18 08/19/18 History Exam Vital signs: Vital Signs 08/19/18 23:48 08/20/18 02:10 08/20/18 03:15 Temperature 98.0 F 97.9 F Pulse Rate 98 H 109 H Respiratory Rate 16 22 Blood Pressure 123/78 102/57 L Pulse Oximetry 100 100 96 08/20/18 03:40 08/20/18 04:28 08/20/18 05:39 Temperature 98.4 F Pulse Rate 115 H 103 H 101 H Respiratory Rate 21 19 18 Blood Pressure 101/50 L 97/59 L 138/55 L Pulse Oximetry 96 99 97 08/20/18 06:23 08/20/18 06:51 Temperature 98.5 F Pulse Rate 104 H 103 H Respiratory Rate 20 18 Blood Pressure 123/74 127/75 Pulse Oximetry 98 98 Intake & Output 08/19/18 08/20/18 08/20/18 18:59 06:59 18:59 Intake Total 2400 / 2400 Balance 2400 / 2400 Weight 61.235 kg Intake: IV 1999 NS Inj 1,000 ML @ Wide Open IV. 1999 SIG BOLUS ONE Rx#:[id number] Intake (Blood Product) Amt 400 / 400 Rbc As-3 Leukoreduced Unit 400 / 400 [id number] Rbc As-3 Leukoreduced Unit 0 / 0 [id number] Narrative: Sheela is a 53-year-old female. She is mildly anxious. General: Awake and alert. No acute distress. Appears well-developed well- nourished Head: Normocephalic, atraumatic pupils are equal Neck: Soft, nontender, trachea midline Abdomen: Soft, nondistended Examination of right arm reveals no pain or deformity with shoulder, elbow, or wrist motion. Skin is intact. Radial pulse is palpable. Normal capillary refill in fingers. Sensation is intact in radial, ulnar, and median nerve distributions. Cigar Roller strength is +5. No lymphadenopathy noted. Examination of left arm reveals no pain or deformity with shoulder, elbow, or wrist motion. Skin is intact. Radial pulse is palpable. Normal capillary refill in fingers. Sensation is intact in radial, ulnar, and median nerve distributions. Cigar Roller strength is +5. No lymphadenopathy noted. Examination of left lower extremity reveals that left leg is shortened and externally rotated. She has pain with any attempted motion. She has no tenderness on her knee or ankle.. Skin is intact. Sensation is intact in left foot. Dorsalis pedis pulse is palpable. Normal capillary refill and feet. Thigh and calf compartments are soft. No lymphadenopathy noted. +5 strength of ankle dorsiflexion and plantarflexion. Examination of right lower extremity reveals no pain or deformity with hip, knee , or ankle motion. Skin is intact. Sensation is intact in right foot. Dorsalis pedis pulse is palpable. Normal capillary refill and feet. Thigh and calf compartments are soft. No lymphadenopathy noted. +5 strength of ankle dorsiflexion and plantarflexion. Results - Labs Result Diagrams: 08/20/18 00:19 08/20/18 00:19 Labs: Laboratory Results - last 24 hr 08/20/18 08/20/18 08/20/18 00:19 00:19 00:19 WBC 9.8 RBC 1.99 L Hgb 6.6 L* Hct 18.1 L* MCV 91.0 MCH 33.1 MCHC 36.4 H RDW 15.5 Plt Count 396 D MPV 6.8 L Prelim Diff (Auto) Slide review pending Neut % (Auto) 89.9 H Lymph % (Auto) 5.5 L [place] % (Auto) 4.4 Eos % (Auto) 0.0 Baso % (Auto) 0.2 Neut # (Auto) 8.8 H Lymph # (Auto) 0.5 L [place] # (Auto) 0.4 Eos # (Auto) 0.0 Baso # (Auto) 0.0 WBC Differential . Diff Scan Auto diff confirmed Differential Comment . Platelet Estimate Normal Platelet Morphology Normal Sodium 138 Potassium 3.3 L Chloride 105 Carbon Dioxide 14.0 L Anion Gap 19 H BUN 13 Creatinine 0.76 Estimated GFR 79 L Random Glucose 67 L Calcium 8.2 L Serum Alcohol Less than 3 Blood Type Antibody Screen MTS Gel Crossmatch 08/20/18 01:24 WBC RBC Hgb Hct MCV MCH MCHC RDW Plt Count MPV Prelim Diff (Auto) Neut % (Auto) Lymph % (Auto) [place] % (Auto) Eos % (Auto) Baso % (Auto) Neut # (Auto) Lymph # (Auto) [place] # (Auto) Eos # (Auto) Baso # (Auto) WBC Differential Diff Scan Differential Comment Platelet Estimate Platelet Morphology Sodium Potassium Chloride Carbon Dioxide Anion Gap BUN Creatinine Estimated GFR Random Glucose Calcium Serum Alcohol Blood Type B Positive Antibody Screen Negative MTS Gel Crossmatch See Detail - Diagnostic results Imaging: Impressions Hip X-Ray 08/20/18 00:39 CONCLUSION: Superior dislocation of prosthetic left hip. Chest X-Ray 08/20/18 00:40 CONCLUSION: No acute findings. Previous fusion across the cervicothoracic junction. Hip x-ray: report reviewed, image reviewed Assessment and Plan - Assessment and Plan hSeela has a left hip dislocation. Closed reduction attempts in the emergency department were unsuccessful. I discussed treatment options with patient. At this point I would recommend attempted closed reduction under general anesthesia in the operating room. The risk of surgery were discussed. If closed reduction attempts were unsuccessful I will plan on Dr. Hurd resuming care for open treatment of dislocation. Risk of surgery include complications of anesthesia, fracture of femur, displacement of hip replacement components, blood clots, and need for further surgery. All questions were answered. The risk and benefits of surgery were discussed in depth with patient. The risk of surgery include bleeding, infection, injuries to arteries, nerves, or blood vessels, infection, wound complications, nonunion, malunion, painful hardware, and need for further surgery. I also discussed medical complications including blood clots, pneumonia, stroke, heart attack, and . Informed consent was obtained and all questions were answered. N.p.o.--plan on surgery this morning Calcium and vitamin D supplementation Physical therapy consult Follow-up with Dr. Hurd in 2 weeks IRAIS Swartz A mid-level provider in my office (nurse practitioner or physician automotive service assistant) may see this patient on follow-up visits and continue to implement the objectives of this plan including: Starting or adjusting medications, injections , cast application, orthotics, brace application, physical therapy, radiological studies (including x-ray, MRI, CT, ultrasound, bone scan), vascular studies, neurologic studies, specialist consultation, and proceeding with surgical management, as appropriate.
[2018-08-20] MEDS ORDERED: Metoprolol Tartrate 25 MG Tablet PO ONE (08:45)
[2018-08-20] MEDS ORDERED: Sodium Chlor 0.9% Inj 500 ML IV.CONT ONE (08:45)
[2018-08-20] MEDS ORDERED: Chlorhexidine Gluconate 2% 1 Pack (2 Cloths) TOPICAL ONE (08:45)
[2018-08-20] MEDS ORDERED: fentaNYL Citrate Inj 100 MCG/2 ML Ampul ONE ×2 (09:45→10:56)
--- NOTE | 2018-08-20 10:19 | P.HP ---
History of Present Illness Service: [facility] service Primary Care Physician: Otto Gilbert MD History of Present Illness: patient is a 53 years old female brought in by EMS complaining of pain of the left Lower extremity. Patient is very emotional and tearful, diisorganized in thoughts and unable to get a constructive history from her. Review of records with hx of Multiple sclerosis, had left WALTER on 08/14 and DC with home health care. Per patient she still walks independently and uses a cane occasionally. She lives with "Bill, significant other" who called EMS- because "he was sick of me crying " On exam with left hip/post op site swelling , anemic. patient denies any melena or hematochezia or any vaginal bleeding Smokes - 2-3 packs per day At ER , patient was promptly seen by Othopedics and scheduled for surgery this am Inpatient Certification: I certify that the inpatient services were ordered in accordance with Medicare regulations governing the order. This includes certification that hospital inpatient services are reasonable and necessary and in the case of services not specified as inpatient-only under 42 CFR 419.22(n), that they are appropriately provided as inpatient services in accordance to with the 2-midnight benchmark under 43 CFR 412.3(e) Estimated Total Length of Stay (Days): 4 Plans for Post Hospital Care: Not yet determined Review of Systems very tearful and emotional, denies any fever, chest pain or shortness of breath denies any melena or hematochezia, or vaginal bleeding PMFSH - History History Provided By: Patient - Medical History Medical History: Medical History (Last Reviewed 08/20/18 @ 07:09 by Monty Dexter MD) Anxiety Back pain Depression History of MRSA infection Joint pain Multiple sclerosis Neck pain Wears glasses - Surgical History Surgical History: Surgical History (Last Reviewed 08/20/18 @ 07:09 by Monty Dexter MD) History of fusion of cervical spine History of hip surgery History of tubal ligation - Family History Family History: Family History (Last Updated 08/20/18 @ 07:09 by Monty Dexter MD) Other Family history non-contributory - Tobacco History Second Hand Smoke Exposure: Yes Tobacco Use In Past 30 Days: No Smoking Status: Current every day smoker Tobacco Type: Cigarettes - Alcohol History How Often Do You Have a Drink Containing Alcohol: Never - Substance Use History Substance History: Past History - Travel History Recent Travel in the [place] Within the Last 8 Weeks: No Recent Travel Out of the Country Within the Last 8 Weeks: No - Immunization History Tetanus Immunization: <5 Years Medications and Allergies Active Medications: Active Medications Acetaminophen (Tylenol) 650 mg PO Q4H PRN PRN Reason: Temp > 100.4 Bisacodyl (Dulcolax Supp) 10 mg RECTAL DAILY PRN PRN Reason: SEVERE CONSITIPATION Sodium Chloride (Ns Inj) 250 mls @ 15 mls/hr IV.SIG ONCE FLOR Stop: 08/20/18 18:39 Last Admin: 08/20/18 03:00 Dose: 15 mls/hr Potassium Cl/Dextrose/Lact Ringer's (D5w/Lr + Kcl 20 Meq Inj) 1,000 mls @ 125 mls/hr IV.CONT .Q8H FLOR Last Admin: 08/20/18 05:18 Dose: 125 mls/hr Lactated Ringer's (Lr 1000 Ml Inj) 1,000 mls @ 30 mls/hr IV.CONT .Q24H ONE Stop: 08/21/18 08:44 Sodium Chloride (Ns Inj) 500 mls @ 30 mls/hr IV.CONT .Q90Q00F ONE Stop: 08/21/18 01:24 Morphine Sulfate (Morphine Inj) 2 mg IV.PUSH Q3H PRN PRN Reason: pain > 3 Last Admin: 08/20/18 05:18 Dose: 2 mg Ondansetron HCl (Zofran Inj) 4 mg IV.PUSH Q6H PRN PRN Reason: NAUSEA OR VOMITING Sennosides (Senokot) 17.2 mg PO Q12H PRN PRN Reason: Moderate Constipation Allergies Allergy/AdvReac Type Severity Reaction Status Date / Time No Known Allergies Allergy Verified 08/19/18 23:43 Home Medications Medication Instructions Recorded Confirmed Type baclofen 20 mg PO TID 05/29/18 08/19/18 History bupropion HCl [Wellbutrin XL] 300 mg PO TID 05/29/18 08/19/18 History fluoxetine [Prozac] 40 mg PO DAILY 05/29/18 08/19/18 History gabapentin 300 mg PO TID 05/29/18 08/19/18 History Latuda 60 mg PO DAILY 08/16/18 08/19/18 History benztropine 2 mg PO BID 08/16/18 08/19/18 History diazepam 5 mg PO Q6HR PRN 08/16/18 08/19/18 History pentoxifylline 400 mg PO DAILY 08/16/18 08/19/18 History Exam Vital signs: Vital Signs 08/19/18 23:48 08/20/18 02:10 08/20/18 03:15 Temperature 98.0 F 97.9 F Pulse Rate 98 H 109 H Respiratory Rate 16 22 Blood Pressure 123/78 102/57 L Pulse Oximetry 100 100 96 08/20/18 03:40 08/20/18 04:28 08/20/18 05:39 Temperature 98.4 F Pulse Rate 115 H 103 H 101 H Respiratory Rate 21 19 18 Blood Pressure 101/50 L 97/59 L 138/55 L Pulse Oximetry 96 99 97 08/20/18 06:23 08/20/18 06:51 08/20/18 07:22 Temperature 98.5 F Pulse Rate 104 H 103 H 118 H Respiratory Rate 20 18 22 Blood Pressure 123/74 127/75 129/73 Pulse Oximetry 98 98 98 Intake & Output 08/19/18 08/20/18 08/20/18 18:59 06:59 18:59 Intake Total 2400 / 2400 Balance 2400 / 2400 Weight 61.235 kg Intake: IV 1999 NS Inj 1,000 ML @ Wide Open IV. 1999 SIG BOLUS ONE Rx#:[id number] Intake (Blood Product) Amt 400 / 400 Rbc As-3 Leukoreduced Unit 400 / 400 [id number] Rbc As-3 Leukoreduced Unit 0 / 0 [id number] Narrative: awake adna lert, oriented x 3, emotional anciteric no nuchal rigdiity lungs- no rales, no wheezezes heart- regular, tachycardic abdomen soft, nontender Left hip- post op incision, dry, well coaptated but marked swelling of the hip, slightly tender, no erythema noc albves swelling rotenderness grossly no sensory deficits moves both feet, left leg- movement- limited by pain Results - Labs CBC & Chem 7: 08/20/18 15:55 08/20/18 11:00 Labs: Laboratory Results - last 24 hr 08/20/18 08/20/18 08/20/18 00:19 00:19 00:19 WBC 9.8 RBC 1.99 L Hgb 6.6 L* Hct 18.1 L* MCV 91.0 MCH 33.1 MCHC 36.4 H RDW 15.5 Plt Count 396 D MPV 6.8 L Prelim Diff (Auto) Slide review pending Neut % (Auto) 89.9 H Lymph % (Auto) 5.5 L [place] % (Auto) 4.4 Eos % (Auto) 0.0 Baso % (Auto) 0.2 Neut # (Auto) 8.8 H Lymph # (Auto) 0.5 L [place] # (Auto) 0.4 Eos # (Auto) 0.0 Baso # (Auto) 0.0 WBC Differential . Diff Scan Auto diff confirmed Differential Comment . Platelet Estimate Normal Platelet Morphology Normal Sodium 138 Potassium 3.3 L Chloride 105 Carbon Dioxide 14.0 L Anion Gap 19 H BUN 13 Creatinine 0.76 Estimated GFR 79 L Random Glucose 67 L Calcium 8.2 L Serum Alcohol Less than 3 Blood Type Antibody Screen MTS Gel Crossmatch 08/20/18 08/20/18 01:24 08:31 WBC RBC Hgb Hct MCV MCH MCHC RDW Plt Count MPV Prelim Diff (Auto) Neut % (Auto) Lymph % (Auto) [place] % (Auto) Eos % (Auto) Baso % (Auto) Neut # (Auto) Lymph # (Auto) [place] # (Auto) Eos # (Auto) Baso # (Auto) WBC Differential Diff Scan Differential Comment Platelet Estimate Platelet Morphology Sodium Potassium Chloride Carbon Dioxide Anion Gap BUN Creatinine Estimated GFR Random Glucose Calcium Serum Alcohol Blood Type B Positive Antibody Screen Negative MTS Gel Crossmatch See Detail See Detail - Imaging Impressions Hip X-Ray 08/20/18 00:39 CONCLUSION: Superior dislocation of prosthetic left hip. Chest X-Ray 08/20/18 00:40 CONCLUSION: No acute findings. Previous fusion across the cervicothoracic junction. Caprini VTE Risk Assessment Caprini Risk Assessment Model: Point Value = 1 Point Value = 2 Point Value = 3 Point Value = 5 Age 41-60 Minor surgery BMI > 25 kg/m2 Swollen legs Varicose veins or History of unexplained or recurrent spontaneous Oral contraceptives or hormone replacement Sepsis (< 1 month) Serious lung disease, including pneumonia (< 1 month) Abnormal pulmonary function Acute myocardial infarction Congestive heart failure (< 1 month) History of inflammatory bowel disease Medical patient at bed rest Age 61-74 Arthroscopic surgery Major open surgery (> 45 min) Laparoscopic surgery (> 45 min) Malignancy Confined to bed (> 72 hours) Immobilizing plaster cast Central venous access Age >= 75 History of VTE Family history of VTE Factor V Leiden Prothrombin [id number] Lupus anticoagulant Anticardiolipin antibodies Elevated serum homocysteine Heparin-induced thrombocytopenia Other congenital or acquired thrombophilia Stroke (< 1 month) Elective arthroplasty Hip, pelvis, or leg fracture Acute spinal cord injury (< 1 month) Prophylaxis Regimen: Total Risk Factor Score Risk Level Prophylaxis Regimen 0-1 Low Early ambulation 2 Moderate Order ONE of the following: *Sequential Compression Device (SCD) *Heparin 5000 units SQ BID 3-4 Higher Order ONE of the following medications: *Heparin 5000 units SQ TID *Enoxaparin/Lovenox 40 mg SQ daily (WT < 150 kg, CrCl > 30 mL/min) *Enoxaparin/Lovenox 30 mg SQ daily (WT < 150 kg, CrCl > 10-29 mL/min) *Enoxaparin/Lovenox 30 mg SQ BID (WT < 150 kg, CrCl > 30 mL/min) AND/OR *Sequential Compression Device (SCD) 5 or more Highest Order ONE of the following medications: *Heparin 5000 units SQ TID (Preferred with Epidurals) *Enoxaparin/Lovenox 40 mg SQ daily (WT < 150 kg, CrCl > 30 mL/min) *Enoxaparin/Lovenox 30 mg SQ daily (WT < 150 kg, CrCl > 10-29 mL/min) *Enoxaparin/Lovenox 30 mg SQ BID (WT < 150 kg, CrCl > 30 mL/min) AND *Sequential Compression Device (SCD) Assessment and Plan - Plan 53 years old female Prosthetic left hip dislocation- S/P recent left WALTER- 08/14 - seen by Ortho- and taking her to OR now to attempt closed reduction/ manipulation under anesthesia - prn pain meds - PT consult post op Acute posthemorrhagic anemia in the setting of recent WALTER -requiring blood transfusion r/o bleed into the prosthetic hip Underlying chronic anemia - - patient received blood transfusion this am - FF CBC post transfusion - check baseline iron studies - denies any history of melena or hematocheiza or vaginal bleeding - reviewed labs from previous admission- Hgb runs around 9 History of depression/Anxiety- disorganized thoughts - restart meds post op - will get psychiatry consult post op - as OP - ff by sounds like Dr. Beasley DVT prophylaxis- post op- per Ortho ADD: Acute urinary retention - patient having difficulty urinating- bladder distended - Insert tinajero catheter - plan for OR tomorrow seen by Ortho- failed manipulation - will need open surgery to realign
[2018-08-20] MEDS ORDERED: Post-op Orders (for Pharmacy) OTHER STA (10:41)
--- NOTE | 2018-08-20 10:49 | P.OP ---
- Preoperative Diagnosis (1) Hip dislocation, left Date of procedure: 08/20/18 Procedure: Attempted left total hip arthroplasty reduction of dislocation under anesthesia Anesthesia: MARINA Surgeon: Monty Dexter MD Aids Nurse: Calin Genao PA-C Operation and Findings: Sheela is a 53-year-old female who underwent a conversion to left total hip arthroplasty last week. She presented to the emergency room with left hip pain. X-rays revealed a dislocation of her left hip. She underwent attempted closed reduction in the emergency department. Closed reduction attempt was unsuccessful. Informed consent was obtained for attempted closed reduction under general anesthesia. She is brought the operating. She is given IV sedation and general anesthesia. Timeout procedure was performed. Procedure began with visualization of the left hip under fluoroscopy. The left hip was gently manipulated. The prosthesis appeared to be displaced with loosening and malrotation of the stem. The hip was irreducible. She will likely need open surgery with revision of femoral stem later this week. I will discuss case with Dr. Lee Hurd who will resume care of patient. Patient was awakened and transferred to recovery in stable condition.
[2018-08-20 11:00] LABS: % Iron Saturation 9.3 % (20-50)
[2018-08-20 11:18] LABS: Baso % (Auto) 0.1 % (0.0-2.0); Hematocrit 22.6 % (35.0-46.0); Hemoglobin 7.8 gm/dL (11.6-15.3); Lymph # (Auto) 0.7 th/mm3 (1.0-4.8); Mean Corpuscular HGB Conc 34.8 % (32.0-36.0); Mean Corpuscular Hemoglobin 32.2 pg (27.0-34.0); Mean Corpuscular Volume 92.6 fL (80.0-100.0); Mean Platelet Volume 6.4 fL (7.0-11.0); Mono # (Auto) 0.5 th/mm3 (0.0-0.9); Mono % (Auto) 5.9 % (0.0-8.0); Neut # (Auto) 7.6 th/mm3 (1.8-7.7); Platelet Count 296 th/mm3 (150-450); Red Blood Count 2.43 mil/mm3 (4.00-5.30); Red Cell Distribution Width 14.8 % (11.6-17.2); White Blood Count 8.8 th/mm3 (4.0-11.0)
[2018-08-20 11:52] LABS: Calcium 7.2 mg/dL (8.5-10.1); Carbon Dioxide 16.1 meq/L (21.0-32.0); Potassium 3.5 meq/L (3.5-5.1)
[2018-08-20 12:12] LABS: Albumin 2.1 g/dL (3.4-5.0); Calcium-Albumin Corrected 8.7 mg/dL (8.5-10.1)
[2018-08-20] MEDS ORDERED: *Meperidine Inj 25 MG/ML Vial PERIprocedural Use ONLY ONE (12:17)
[2018-08-20] MEDS ORDERED: *morphine SULFATE 10 MG/ML PERIprocedure ONLY ONE (12:48)
--- NOTE | 2018-08-20 13:09 | XR ---
EXAM DATE: 08/20/2018 12:48 PM EST AGE/SEX: 53 years / Female INDICATIONS: Attempt of left hip closed reduction. CLINICAL DATA: This is the patient's subsequent encounter. Patient reports that signs and symptoms h ave been present for 1 day and indicates a pain score of Nonresponsive. MEDICAL/SURGICAL HISTORY: None. . Left total hip. COMPARISON: [facility], HIP LEFT W AP PELVIS 2V, 08/20/2018. . FINDINGS: 2 digital images are submitted revealing a superior posterior dislocation of the left WALTER. CONCLUSION: Left hip dislocation Electronically signed by: Hilario Gonzalez MD 08/20/2018 1:08 PM EST
[2018-08-20 16:29] LABS: Hematocrit 26.9 % (35.0-46.0); Hemoglobin 9.5 gm/dL (11.6-15.3)
[2018-08-20 16:35] LABS: INR 1.2 Ratio; Prothrombin Time 12.3 sec (9.8-11.6)
[2018-08-20] MEDS: Morphine Inj 4 MG/ML Vial IV.PUSH PRN (22:24)
[2018-08-21] MEDS: Morphine Inj 4 MG/ML Vial IV.PUSH PRN ×4 (01:49→19:08)
[2018-08-21] MEDS: diazePAM 5 MG Tablet PO PRN ×2 (01:50→21:22)
[2018-08-21] MEDS: Baclofen 10 MG Tablet PO SCH ×2 (01:57→10:14)
[2018-08-21] MEDS: Pentoxifylline 400 MG Controlled Release Tablet PO SCH ×2 (06:42→18:30)
[2018-08-21] MEDS: KCL 20 mEq/D5W/LR Inj 1,000 ML IV.CONT SCH ×2 (06:43→21:21)
[2018-08-21 07:02] LABS: Eos % (Auto) 0.3 % (0.0-4.0); Hematocrit 27.3 % (35.0-46.0); Hemoglobin 9.7 gm/dL (11.6-15.3); Lymph # (Auto) 1.4 th/mm3 (1.0-4.8); Lymph % (Auto) 15.4 % (9.0-44.0); Mean Corpuscular HGB Conc 35.5 % (32.0-36.0); Mean Corpuscular Hemoglobin 31.9 pg (27.0-34.0); Mean Corpuscular Volume 89.9 fL (80.0-100.0); Mean Platelet Volume 6.3 fL (7.0-11.0); Mono # (Auto) 0.5 th/mm3 (0.0-0.9); Mono % (Auto) 5.9 % (0.0-8.0); Neut # (Auto) 7.2 th/mm3 (1.8-7.7); Neut % (Auto) 78.4 % (16.0-70.0); Platelet Count 326 th/mm3 (150-450); Red Blood Count 3.04 mil/mm3 (4.00-5.30); Red Cell Distribution Width 15.3 % (11.6-17.2); White Blood Count 9.2 th/mm3 (4.0-11.0)
[2018-08-21 07:30] LABS: Calcium 7.9 mg/dL (8.5-10.1); Carbon Dioxide 21.7 meq/L (21.0-32.0); Potassium 3.7 meq/L (3.5-5.1)
--- NOTE | 2018-08-21 08:55 | P.PNOP ---
Subjective Interval history: The patient complains of left hip pain. Physical Exam Vital signs: Vital Signs 08/20/18 10:45 08/20/18 11:00 08/20/18 11:15 Temperature 97.9 F 97.9 F Pulse Rate 87 90 91 H Respiratory Rate 16 18 20 Blood Pressure 86/47 L 86/51 L 96/53 L Pulse Oximetry 93 L 97 95 08/20/18 11:30 08/20/18 11:45 08/20/18 12:00 Temperature 98.3 F 98.7 F 98.8 F Pulse Rate 92 H 100 H 97 H Respiratory Rate 21 25 H 21 Blood Pressure 93/55 L 107/58 L 108/57 L Pulse Oximetry 95 93 L 94 L 08/20/18 12:15 08/20/18 13:15 08/20/18 14:15 Temperature 98.8 F Pulse Rate 92 H 92 H 90 Respiratory Rate 25 H 17 20 Blood Pressure 110/65 102/58 L 104/56 L Pulse Oximetry 94 L 94 L 95 08/20/18 15:15 08/20/18 16:15 08/20/18 17:15 Temperature 98.2 F 97.3 F L Pulse Rate 94 H 84 91 H Respiratory Rate 16 16 12 Blood Pressure 111/71 96/52 L 106/58 L Pulse Oximetry 94 L 96 97 08/20/18 20:00 08/20/18 23:50 08/21/18 03:48 Temperature 97.4 F L 97.4 F L 98.9 F Pulse Rate 88 88 86 Respiratory Rate 17 18 18 Blood Pressure 104/66 113/58 L 103/61 Pulse Oximetry 98 97 97 Intake & Output 08/20/18 08/21/18 08/21/18 18:59 06:59 18:59 Intake Total 2300 / 2300 1000 / 1000 Output Total 1250 / 1250 350 / 350 Balance 1050 / 1050 650 / 650 Weight 61.2 kg Intake: IV 1000 / 1000 1000 / 1000 D5W/LR + KCL 20 mEq Inj 1,000 1000 / 1000 1000 / 1000 ML @ 125 mls/hr IV.CONT .Q8H [facility] Rx#:[id number] Oral 0 / 0 Anesthesia Amount 500 / 500 Intake (Blood Product) Amt 800 / 800 Rbc As-3 Leukoreduced Unit 400 / 400 [id number] Rbc As-3 Leukoreduced Unit 400 / 400 [id number] Output: Urine Amount (Catheter) 1250 / 1250 350 / 350 Indwelling Urethral Catheter 1250 / 1250 350 / 350 Other: # Incontinent Voids 1 Date of Last Bowel Movement 08/18/18 08/18/18 # Bowel Movements 0 Narrative: The left hip is dressed. I do not see any active drainage about the dressing. However, I was told that she did have some bloody drainage around the wound last night. Left calf has no swelling or tenderness. She can move the toes on the left side but with some generalized weakness. The left thigh has some mild swelling with no evidence of compartment syndrome. I did not appreciate erythema surrounding the dressing. - Urinary Catheter Management Indwelling Urethral Catheter Cath placed during this visit: yes Reason for continuing: Acute urinary retention Insertion date: 08/20/18 Insertion time: 15:45 Results - Labs CBC & Chem 7: 08/21/18 06:40 08/21/18 06:04 Laboratory Results - last 24 hr 08/20/18 08/20/18 08/20/18 00:19 01:24 08:31 WBC RBC Hgb Hct MCV MCH MCHC RDW Plt Count MPV Neut % (Auto) Lymph % (Auto) [place] % (Auto) Eos % (Auto) Baso % (Auto) Neut # (Auto) Lymph # (Auto) [place] # (Auto) Eos # (Auto) Baso # (Auto) WBC Differential Differential Comment PT INR APTT Sodium Potassium Chloride Carbon Dioxide Anion Gap BUN Creatinine Estimated GFR Random Glucose Calcium Calcium Adj for Albumin Iron 14 L TIBC 151 L % Saturation 9.3 L Ferritin 820 H Albumin MTS Gel Crossmatch See Detail See Detail 08/20/18 08/20/18 08/20/18 11:00 11:00 15:55 WBC 8.8 RBC 2.43 L Hgb 7.8 L Hct 22.6 L MCV 92.6 MCH 32.2 MCHC 34.8 RDW 14.8 Plt Count 296 MPV 6.4 L Neut % (Auto) 86.0 H Lymph % (Auto) 8.0 L [place] % (Auto) 5.9 Eos % (Auto) 0.0 Baso % (Auto) 0.1 Neut # (Auto) 7.6 Lymph # (Auto) 0.7 L [place] # (Auto) 0.5 Eos # (Auto) 0.0 Baso # (Auto) 0.0 WBC Differential . Differential Comment Auto diff final PT 12.3 H INR 1.2 APTT Sodium 142 Potassium 3.5 Chloride 113 H D Carbon Dioxide 16.1 L Anion Gap 13 BUN 12 Creatinine 0.80 Estimated GFR 74 L Random Glucose 79 Calcium 7.2 L* D Calcium Adj for Albumin 8.7 Iron TIBC % Saturation Ferritin Albumin 2.1 L MTS Gel Crossmatch 08/20/18 08/20/18 08/20/18 15:55 15:55 15:55 WBC RBC Hgb 9.5 L Cancelled Hct 26.9 L MCV MCH MCHC RDW Plt Count MPV Neut % (Auto) Lymph % (Auto) [place] % (Auto) Eos % (Auto) Baso % (Auto) Neut # (Auto) Lymph # (Auto) [place] # (Auto) Eos # (Auto) Baso # (Auto) WBC Differential Differential Comment PT INR APTT 31.2 Sodium Potassium Chloride Carbon Dioxide Anion Gap BUN Creatinine Estimated GFR Random Glucose Calcium Calcium Adj for Albumin Iron TIBC % Saturation Ferritin Albumin MTS Gel Crossmatch 08/21/18 08/21/18 06:04 06:40 WBC 9.2 RBC 3.04 L Hgb 9.7 L Hct 27.3 L MCV 89.9 MCH 31.9 MCHC 35.5 RDW 15.3 Plt Count 326 MPV 6.3 L Neut % (Auto) 78.4 H Lymph % (Auto) 15.4 [place] % (Auto) 5.9 Eos % (Auto) 0.3 Baso % (Auto) 0.0 Neut # (Auto) 7.2 Lymph # (Auto) 1.4 [place] # (Auto) 0.5 Eos # (Auto) 0.0 Baso # (Auto) 0.0 WBC Differential . Differential Comment Auto diff final PT INR APTT Sodium 140 Potassium 3.7 Chloride 110 H Carbon Dioxide 21.7 Anion Gap 8 BUN 10 Creatinine 0.72 Estimated GFR 84 L Random Glucose 94 Calcium 7.9 L Calcium Adj for Albumin Iron TIBC % Saturation Ferritin Albumin MTS Gel Crossmatch - Imaging Impressions Hip X-Ray 08/20/18 00:00 CONCLUSION: Left hip dislocation Assessment and Plan - Assessment and Plan I discussed this patient's clinical course with her in detail. This patient cannot remember any details surrounding the failure of the left hip replacement. According to provider notes the patient had fallen while "running off the bed". When I interviewed the patient today she does not remember this history at all. The patient was found to have a dislocation with likely failure of the previous ORIF of the greater trochanteric fixation. My partner Dr. Monty Rucker saw the patient yesterday in an effort to expedite her care and brought her back to the operative theater for fluoroscopic evaluation and attempted closed reduction of the hip. He felt that the stem appeared to be pistoning and loosened from her fall. He was unable to perform an adequate closed reduction. I discussed these findings with the patient this morning. I explained the serious nature of her new injury to the hip. This problem cannot be adequately managed in a closed fashion. She will require an open procedure with likely revision of the hip components. She may need conversion to a different type of stem such as a reclaim stem to provide further distal fixation. She would likely require revision open reduction and internal fixation of the greater trochanter. She may require revision of the acetabular side. Based on the images it seems as if the cup and polyethylene are likely intact in very good position, but we could consider revision of this area such as removal of the previous acetabular component with deepening of the socket and placing a bipolar head to reduce the chance of further dislocations. Based on her initial postoperative films from surgery last week overall the components were very well-positioned and we believe that the failure of this construct was due to noncompliance with the restrictions on the patient such as toe-touch weightbearing, the use of the knee immobilizer to enforce posterior hip dislocations and also the actual following of posterior total hip dislocation protocol. Because of this history of noncompliance, there is still significant risk of failure even of the upcoming surgery from this revision. I explained the significant importance of being able to follow these restrictions and the protocols that are necessary to reduce the chance of complications. The patient this morning seem to have a good understanding of this conversation and the need for these restrictions. The risks and benefits of surgical management have been discussed in detail. The risks of surgery include, but are not limited to, injury to nerves, blood vessels, bleeding, infection, non-healing; loss of range on motion, leg length inequality, recurrent dislocation, dysfunction or weakness of the associated joints; blood clots, pneumonia, stroke, heart attack, and .
[2018-08-21] MEDS ORDERED: BUPROPION HCL 300 MG PO SCH (09:00)
[2018-08-21] MEDS: Gabapentin 300 MG Capsule PO SCH ×3 (10:15→18:28)
[2018-08-21] MEDS ORDERED: Dexmedetomidine Inj 200 MCG/2 ML Vial ONE (11:19)
--- NOTE | 2018-08-21 12:59 | P.PNPSY ---
Subjective Remarks: Patient was visited for psychiatric evaluation, but she was out for surgery. Assessment and Plan - Plan Plan: Patient was out for surgery, will return in a later time once the patient is in the room. Justification for Continued Inpatient Stay: Patient was out for surgery, will return in a later time once the patient is in the room.
[2018-08-21] MEDS ORDERED: Metoprolol Tartrate 25 MG Tablet PO ONE (13:00)
[2018-08-21] MEDS ORDERED: Sodium Chlor 0.9% Inj 500 ML IV.CONT ONE (13:00)
[2018-08-21] MEDS ORDERED: Chlorhexidine Gluconate 2% 1 Pack (2 Cloths) TOPICAL ONE (13:00)
[2018-08-21] MEDS ORDERED: Tranexamic Acid Inj 612 MG in Sodium Chlor 0.9% Inj 100 ML IV.SIG SCH (13:30)
[2018-08-21] MEDS ORDERED: Bisacodyl 10 MG Supp RECTAL PRN (15:07)
[2018-08-21] MEDS ORDERED: Aluminum/Magnesium/Simethacone Susp 30 ML UDC PO PRN (15:07)
[2018-08-21] MEDS ORDERED: Post-op Orders (for Pharmacy) OTHER STA (15:07)
[2018-08-21] MEDS ORDERED: Tranexamic Acid Inj 612 MG in Sodium Chlor 0.9% Inj 100 ML IV.SIG ONE (16:00)
--- NOTE | 2018-08-21 16:02 | MP ---
cc: Lee Hurd MD DATE OF OPERATION: 08/21/2018 PREOPERATIVE DIAGNOSES: 1. 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 2. Left hip recurrent greater trochanteric fracture with displacement. POSTOPERATIVE DIAGNOSIS: 1. 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 2. Left hip recurrent greater trochanteric fracture with displacement. PROCEDURE PERFORMED: 1. Left revision total hip arthroplasty, femoral component. 2. Left hip revision open reduction, internal fixation of greater trochanteric fracture. SURGEON: Lee Hurd MD. MUSIC EDUCATOR: ANNMARIE sAhford. The surgical procedure was assisted by my Advanced Registered Nurse Practitioner. My GOLD TOOLER presence was necessary throughout this case for the manipulation and positioning of the surgical extremity. My GOLD TOOLER was assisting me throughout the duration of this procedure. The skill set of an Advanced Registered Nurse Practitioner was medically necessary to complete this procedure. During the surgical case, the surgical scrub technologist was working at the back table and the Advanced Registered Nurse Practitioner was directly assisting me. ANESTHESIA: General anesthesia. ESTIMATED BLOOD LOSS: 300 mL. IMPLANT: 1. DePuy Reclaim distal tapered stem, 14 x 190. 2. Reclaim conical proximal body, 20 mm x 95 mm. 3. Femoral head, 32, +9, metal. PROCEDURE: The patient had received intravenous Ancef and vancomycin and tranexamic acid. The patient was brought back to the operative theater. General anesthesia was administered. She was placed into the lateral decubitus position with an axillary roll and a well-padded down leg. There was some very small amount of drainage that was coming out of the mid to proximal aspect of the incision, although the incision was still very well approximated. There was no erythema. After the appropriate prepping and draping, we made an incision through the previous incision. We evacuated at least 500 mL of hematoma with no signs of infection. This was both superficial and deep. The previous sutures for the deep fascia were still intact and we removed these. We found that the hip was dislocated and the prosthesis was unstable and easily movable. We removed the prosthesis. We found that the greater trochanter fracture was displaced and the claw had been displaced that was holding this in position. We cut the cables, removed the claw. We reflected the greater trochanter to get access to the proximal femur. We did not identify new fractures. We evaluated the acetabular component and found this to be very well fixed. The polyethylene was in good condition. We did not need to revise the acetabular side. That component was again well fixed. We prepared the proximal femur for the Reclaim stem. We did need to use a ball-tip guidewire with flexible reamers up to a size 15. We did go back and forth between that and the straight reamer until we get a very good fit with the straight reamer. We placed the temporary conical sheath onto the reamer, which allowed us to then ream proximally in order to fit the appropriate size body. We did this to the appropriate depth. We then trialed the hip off of this, felt that we had pretty good leg lengths and good stability. Therefore, we placed the final distal stem into position, which had good purchase with no rotational instability. We then built up the proximal body, which was a size 20 x 95 and a tightened this according to the manual for appropriate tightening and this was done with the hip at approximately 20 degrees of anteversion. This gave very nice stability. We retrialed the hip and ended up deciding to go with the +9 head, which gave good stability with the hip flexed to 90 degrees and internally rotated to 50 degrees. It was also very stable in the position of sleep. It had an appropriate shuck. We placed the final head into position and reduced the hip. We then reduced the greater trochanteric fracture into anatomic position. This time, instead of using just a trochanteric claw, we decided to use a trochanteric claw plate, which was applied to the lateral aspect of the femur. We grabbed the 2 spikes into the proximal greater trochanter. We provisionally held this with cerclage wires. We also placed a locking screw into the proximal lateral aspect of the plate. We were able to get one of the cables to secure the fracture down as well as. So, ultimately we had about 3 points of fixation on this greater trochanter including the claw points, the screw, and also one of the cables. We then placed 3 further cables down distally to hold the plate to the proximal femur. The cables were all placed subperiosteally. Each of these cables were tensioned appropriately before crimping and cutting. The hip was stable and the greater trochanteric fracture was stable at this point. We thoroughly irrigated. We placed a deep drain. We closed the deep fascia with #1 Stridor Stratafix followed by 2-0 Vicryl, followed by shital. POSTOPERATIVE PLAN: Toe-touch weightbearing on the left lower extremity, total hip precautions, use of the knee immobilizer to assist with the total hip precautions, 24 hours of intravenous antibiotics. The patient will resume aspirin for DVT prophylaxis. We were concerned about starting something stronger such as Lovenox because of the significant hematoma that the patient had previously developed and we want to reduce the chance of having drainage from the hip. MD BERNARDO Driscoll/sharif , 03:16 PM , 03:29 PM
[2018-08-21] MEDS ORDERED: *morphine SULFATE 4 MG/ML PERIprocedure ONLY ONE (16:27)
[2018-08-21] MEDS: Sod Chloride 0.9% Inj 1,000 ML IV.CONT SCH (16:41)
--- NOTE | 2018-08-21 17:12 | XR ---
EXAM DATE: 08/21/2018 5:08 PM EST AGE/SEX: 53 years / Female INDICATIONS: Post op left hip reduction, left hip ORIF. CLINICAL DATA: This is the patient's initial encounter. Patient reports that signs and symptoms have been present for 1 day and indicates a pain score of Nonresponsive. MEDICAL/SURGICAL HISTORY: . Multiple left hip dislocations . Left hip ORIF COMPARISON: [facility] [place], HIP LEFT W AP PELVIS 2V, 08/20/2018. . FINDINGS: Interval revision of dislocated left WALTER. New femoral stem component with associated lateral cortical plate with trochanteric claw configuration. Multiple cerclage wires. Visualized hardware appears int act. Alignment is anatomic. Skin hsital are noted laterally. The remainder the pelvis is stable and intact. CONCLUSION: Satisfactory appearance of revision left WALTER. The femoral component is not seen in its entirety on this film of the pelvis Electronically signed by: Hilario Gonzalez MD 08/21/2018 5:11 PM EST
--- NOTE | 2018-08-21 17:13 | XR ---
EXAM DATE: 08/21/2018 5:09 PM EST AGE/SEX: 53 years / Female INDICATIONS: Post op left hip reduction, left hip ORIF. CLINICAL DATA: This is the patient's initial encounter. Patient reports that signs and symptoms have been present for 1 day and indicates a pain score of Nonresponsive. MEDICAL/SURGICAL HISTORY: . Multiple left hip dislocations . ORIF left hip COMPARISON: [facility] [place], PELVIS AP 1V, 08/21/2018. . FINDINGS: Long stem left WALTER revision hardware is intact with satisfactory appearance. Lateral cortical side pl ate with trochanteric claw configuration secured to the proximal femur with 4 cerclage wires. The ali gnment is anatomic. The distal femur is intact and unremarkable. Skin shital are present in the late ral hip and thigh region. CONCLUSION: Satisfactory appearance post revision left WALTER Electronically signed by: Hilario Gonzalez MD 08/21/2018 5:12 PM EST
[2018-08-21] MEDS: ceFAZolin 1 GM Premix Inj 1 GM/50 ML FROZ.PIGGY IV.SIG SCH (18:29)
[2018-08-21] MEDS: Benztropine 2 MG Tablet PO SCH ×2 (18:30→21:22)
[2018-08-21] MEDS: FLUoxetine 20 MG Capsule PO SCH (18:32)
--- NOTE | 2018-08-21 18:35 | P.PN ---
Subjective Interval history: Follow-up visit for left hip prosthesis dislocation following recent total hip replacement 08/14. Recent is seen and examined resting in bed, tearful with complaints of leg pain. She is still drowsy but oriented to self and place. Denies any shortness of breath or cough. She endorses nausea. Physical Exam Vital signs: Vital Signs 08/20/18 20:00 08/20/18 23:50 08/21/18 03:48 Temperature 97.4 F L 97.4 F L 98.9 F Pulse Rate 88 88 86 Respiratory Rate 17 18 18 Blood Pressure 104/66 113/58 L 103/61 Pulse Oximetry 98 97 97 08/21/18 08:00 Temperature 97.2 F L Pulse Rate 80 Respiratory Rate 16 Blood Pressure 116/59 L Pulse Oximetry 92 L Intake & Output 08/20/18 08/21/18 08/21/18 18:59 06:59 18:59 Intake Total 2300 / 2300 1000 / 1000 4152.12 / 4152.12 Output Total 1250 / 1250 350 / 350 930 / 930 Balance 1050 / 1050 650 / 650 3222.12 / 3222.12 Weight 61.2 kg Intake: IV 1000 / 1000 1000 / 1000 152.12 / 152.12 D5W/LR + KCL 20 mEq Inj 1,000 1000 / 1000 1000 / 1000 ML @ 125 mls/hr IV.CONT .Q8H FLOR Rx#:[id number] NS Inj 1,000 ML @ 80 mls/hr IV. 46 / 46 CONT .[id number] FLOR Rx#:[id number] Cyklokapron Inj 612 MG In NS 106.12 / 106.12 Inj 100 ML @ 200 mls/hr IV.SIG ONCE FLOR Rx#:[id number] Oral 0 / 0 0 / 0 Anesthesia Amount 500 / 500 4000 / 4000 Intake (Blood Product) Amt 800 / 800 Rbc As-3 Leukoreduced Unit 400 / 400 [id number] Rbc As-3 Leukoreduced Unit 400 / 400 [id number] Output: Estimated Blood Loss 300 / 300 Urine Amount (Catheter) 1250 / 1250 350 / 350 510 / 510 Indwelling Urethral Catheter 1250 / 1250 350 / 350 510 / 510 Wound Drainage 120 / 120 Left Hip 120 / 120 Other: # Incontinent Voids 1 Date of Last Bowel Movement 08/18/18 08/18/18 08/18/18 # Bowel Movements 0 Narrative: GENERAL: Well-nourished, well-developed female tearful complaining of pain. SKIN: Warm, dry, pale. HEAD: Atraumatic. Normocephalic. EYES: Pupils equal and round. No scleral icterus. No injection or drainage. ENT: No nasal bleeding or discharge. Mucous membranes pink and moist. NECK: Trachea midline. No JVD. CARDIOVASCULAR: Regular rate and rhythm. RESPIRATORY: No accessory muscle use. Clear to auscultation. Breath sounds equal bilaterally. GASTROINTESTINAL: Abdomen soft, non-tender, nondistended. + Bowel sounds. Cade catheter draining clear yellow urine. MUSCULOSKELETAL: Extremities without clubbing, cyanosis, or edema. No obvious deformities. Left hip dressing dry and intact drain noted. LLE warm, capillary refill <3 seconds, +movement and sensation. NEUROLOGICAL: Drowsy but arousable to voice, oriented x2. No obvious cranial nerve deficits. Motor grossly within normal limits. 4/5 muscle strength in the arms and legs. Normal speech. PSYCHIATRIC: Appropriate mood and affect; insight and judgment normal. - Urinary Catheter Management Indwelling Urethral Catheter Cath placed during this visit: yes Reason for continuing: Acute urinary retention Insertion date: 08/20/18 Insertion time: 15:45 Results - Labs CBC & Chem 7: 08/21/18 06:40 08/21/18 06:04 Laboratory Results - last 24 hr 08/21/18 08/21/18 08/21/18 06:04 06:40 10:35 WBC 9.2 RBC 3.04 L Hgb 9.7 L Hct 27.3 L MCV 89.9 MCH 31.9 MCHC 35.5 RDW 15.3 Plt Count 326 MPV 6.3 L Neut % (Auto) 78.4 H Lymph % (Auto) 15.4 [place] % (Auto) 5.9 Eos % (Auto) 0.3 Baso % (Auto) 0.0 Neut # (Auto) 7.2 Lymph # (Auto) 1.4 [place] # (Auto) 0.5 Eos # (Auto) 0.0 Baso # (Auto) 0.0 WBC Differential . Differential Comment Auto diff final Sodium 140 Potassium 3.7 Chloride 110 H Carbon Dioxide 21.7 Anion Gap 8 BUN 10 Creatinine 0.72 Estimated GFR 84 L Random Glucose 94 Calcium 7.9 L MTS Gel Crossmatch See Detail Bld Prod Order Comment - Imaging Impressions Femur X-Ray 08/21/18 15:04 CONCLUSION: Satisfactory appearance post revision left WALTER Pelvis X-Ray 08/21/18 15:06 CONCLUSION: Satisfactory appearance of revision left WALTER. The femoral component is not seen in its entirety on this film of the pelvis Assessment and Plan - Plan 53 years old female with past medical history significant for MS, anxiety, depression, back pain, neck pain and joint pain who recently underwent total hip replacement 08/14. Patient returns with complaints of pain. Found to have dislocation of prosthetic hip. Prosthetic left hip dislocation- S/P recent left WALTER- 08/14 - Ortho following, 08/20 attempted left total hip arthroplasty reduction of dislocation under anesthesia unsuccessful. -08/21 s/p left revision total hip arthroplasty, femoral component. Left hip revision open reduction, internal fixation of greater trochanteric fracture by Dr. Hurd. - [place] for pain control - PT consult post op Acute posthemorrhagic anemia in the setting of recent WALTER -requiring blood transfusion r/o bleed into the prosthetic hip Underlying chronic aneia H&H on admission 6.6/18.1, prior Hgb around 9 - s/p 2 units of PRBC's -Iron studies consistent with iron deficiency, iron supplement. -Monitor H&H Urinary retention, acute -Difficult urination with distended bladder, Cade catheter inserted -Bladder training tomorrow when more awake History of depression/Anxiety- disorganized thoughts - restart meds when more awake -Consider consulting psychiatry once more awake if needed. - as OP - ff by sounds like Dr. Beasley DVT prophylaxis- ASA- per Ortho
[2018-08-21] MEDS ORDERED: fentaNYL Citrate Inj 100 MCG/2 ML Ampul ONE ×2 (19:14→19:15)
[2018-08-21] MEDS ORDERED: Morphine Inj 4 MG/ML Vial ONE (19:15)
[2018-08-21] MEDS ORDERED: Zolpidem Tartrate 5 MG Tablet PO PRN (21:00)
[2018-08-21] MEDS: Multivitamin/Minerals Therapeutic Tablet PO SCH (21:22)
[2018-08-21] MEDS: Senna/Docusate Sodium 8.6/50 MG Tablet PO SCH (21:22)
[2018-08-22] MEDS: Morphine Inj 4 MG/ML Vial IV.PUSH PRN ×6 (01:33→19:06)
[2018-08-22] MEDS: KCL 20 mEq/D5W/LR Inj 1,000 ML IV.CONT SCH ×3 (01:51→12:58)
[2018-08-22] MEDS: ceFAZolin 1 GM Premix Inj 1 GM/50 ML FROZ.PIGGY IV.SIG SCH ×2 (01:54→06:19)
[2018-08-22] MEDS: diazePAM 5 MG Tablet PO PRN ×2 (03:46→10:48)
[2018-08-22] MEDS: Sod Chloride 0.9% Inj 1,000 ML IV.CONT SCH ×2 (06:18→17:40)
[2018-08-22 06:47] LABS: Hematocrit 26.5 % (35.0-46.0); Hemoglobin 9.2 gm/dL (11.6-15.3)
[2018-08-22] MEDS: Pentoxifylline 400 MG Controlled Release Tablet PO SCH ×2 (07:24→12:56)
[2018-08-22] MEDS: Gabapentin 300 MG Capsule PO SCH ×4 (07:24→17:32)
[2018-08-22] MEDS: Benztropine 2 MG Tablet PO SCH ×3 (07:25→20:26)
[2018-08-22] MEDS: Ferrous Sulfate 325 MG Tablet PO SCH ×2 (07:25→14:36)
[2018-08-22] MEDS: Multivitamin/Minerals Therapeutic Tablet PO SCH ×3 (07:25→20:27)
[2018-08-22] MEDS: FLUoxetine 20 MG Capsule PO SCH ×2 (07:25→12:58)
[2018-08-22] MEDS: Senna/Docusate Sodium 8.6/50 MG Tablet PO SCH ×3 (07:25→20:26)
--- NOTE | 2018-08-22 07:29 | P.PNOP ---
Subjective Interval history: The patient is resting in bed with mild distress. The patient states the left hip is very painful. The patient is due for her pain medication. Physical Exam Vital signs: Vital Signs 08/21/18 08:00 08/21/18 15:51 08/21/18 16:00 Temperature 97.2 F L 97.8 F Pulse Rate 80 86 88 Respiratory Rate 16 20 20 Blood Pressure 116/59 L 120/57 L 121/69 Pulse Oximetry 92 L 95 98 08/21/18 16:15 08/21/18 16:30 08/21/18 16:45 Temperature Pulse Rate 89 86 83 Respiratory Rate 16 17 14 Blood Pressure 113/67 112/63 100/61 Pulse Oximetry 99 100 99 08/21/18 17:00 08/21/18 17:15 08/21/18 17:30 Temperature Pulse Rate 83 85 86 Respiratory Rate 14 14 14 Blood Pressure 105/61 104/60 108/60 Pulse Oximetry 99 99 97 08/21/18 17:45 08/21/18 18:00 08/21/18 18:45 Temperature 98 F 98 F Pulse Rate 86 96 H 89 Respiratory Rate 14 15 18 Blood Pressure 106/63 124/81 120/71 Pulse Oximetry 97 96 96 08/21/18 20:00 08/22/18 00:00 08/22/18 04:00 Temperature 97.3 F L 97.6 F 99.0 F Pulse Rate 87 98 H 114 H Respiratory Rate 15 15 16 Blood Pressure 124/69 124/60 133/60 Pulse Oximetry 97 93 L 93 L 08/22/18 05:07 Temperature Pulse Rate Respiratory Rate 20 Blood Pressure Pulse Oximetry Intake & Output 08/21/18 08/22/18 08/22/18 18:59 06:59 18:59 Intake Total 5152.12 / 5152.12 1404 / 1404 Output Total 930 / 930 450 / 450 120 / 120 Balance 4222.12 / 4222.12 954 / 954 -120 / -120 Weight 450 kg Intake: IV 1152.12 / 1152.12 1054 / 1054 D5W/LR + KCL 20 mEq Inj 1,000 1000 / 1000 ML @ 125 mls/hr IV.CONT .Q8H FLOR Rx#:[id number] NS Inj 1,000 ML @ 80 mls/hr IV. 46 / 46 954 / 954 CONT .[id number] FLOR Rx#:[id number] Cyklokapron Inj 612 MG In NS 106.12 / 106.12 Inj 100 ML @ 200 mls/hr IV.SIG ONCE FLOR Rx#:[id number] Ancef 1 GM Premix Inj 1 gm In 100 / 100 50 ml @ 100 mls/hr IV.SIG Q6H FLOR Rx#:[id number] Oral 0 / 0 350 / 350 Anesthesia Amount 4000 / 4000 Output: Urine 450 / 450 Estimated Blood Loss 300 / 300 Urine Amount (Catheter) 510 / 510 Indwelling Urethral Catheter 510 / 510 Wound Drainage 120 / 120 120 / 120 Left Hip 120 / 120 120 / 120 Other: Date of Last Bowel Movement 08/18/18 08/18/18 Narrative: The patient's dressing is clean, dry, and intact. EHL/TA/G are intact. 2+ pedal pulse. The patient's calf is soft and nontender. Sensation is intact to light touch distally. Drain is intact with moderate serosanguineous drainage. Thigh is soft and compartments are soft with no concerns for compartment syndrome. - Urinary Catheter Management Indwelling Urethral Catheter Cath placed during this visit: yes Reason for continuing: Acute urinary retention Insertion date: 08/20/18 Insertion time: 15:45 Results - Labs CBC & Chem 7: 08/22/18 05:42 08/21/18 06:04 Laboratory Results - last 24 hr 08/21/18 08/21/18 08/22/18 06:04 10:35 05:42 Hgb 9.2 L Hct 26.5 L Sodium 140 Potassium 3.7 Chloride 110 H Carbon Dioxide 21.7 Anion Gap 8 BUN 10 Creatinine 0.72 Estimated GFR 84 L Random Glucose 94 Calcium 7.9 L MTS Gel Crossmatch See Detail Bld Prod Order Comment - Imaging Impressions Femur X-Ray 08/21/18 15:04 CONCLUSION: Satisfactory appearance post revision left WALTER Pelvis X-Ray 08/21/18 15:06 CONCLUSION: Satisfactory appearance of revision left WALTER. The femoral component is not seen in its entirety on this film of the pelvis - Procedures Left revision total hip arthroplasty, femoral component Left hip revision ORIF of greater trochanter nonunion hip fracture Assessment and Plan - Assessment and Plan POD #1: Left revision total hip arthroplasty, femoral component Left hip revision open reduction internal fixation of greater trochanter nonunion hip fracture 1. Toe-touch weightbearing on [left] lower extremity. 2. Aspirin 81 mg twice daily for DVT prophylaxis. 3. Ice as needed for swelling. 4. Stable per ortho for [facility] facility on Sunday or Sunday. 5. The patient will follow up with Dr. Hurd and/or ANNMARIE Lance as previously scheduled. 6. Posterior hip precautions including use of knee immobilizer while in bed. 7. Maintain dressing. Maintain drain until diminished output. We may be able to pull the drain postop day 2 depending upon how much drainage the patient has.
[2018-08-22] MEDS ORDERED: Dexamethasone Inj 20 MG/5 ML Vial IV.PUSH ONE (08:00)
--- NOTE | 2018-08-22 13:19 | P.PN ---
Subjective Interval history: Follow-up visit for left hip prosthesis dislocation following recent total hip replacement. Patient is seen and examined sitting up in recliner and appears to be in no acute distress. She denies any fevers, chills, cough, nausea, vomiting, diarrhea, dysuria, dizziness or lightheadedness. She reports some ongoing left hip pain. Discussed with patient discharged to rehab, patient continues to be somewhat reluctant and states she wants to go home with home health. Discussed with patient the importance of safety regarding rehabilitation. Physical Exam Vital signs: Vital Signs 08/21/18 15:51 08/21/18 16:00 08/21/18 16:15 Temperature 97.8 F Pulse Rate 86 88 89 Respiratory Rate 20 20 16 Blood Pressure 120/57 L 121/69 113/67 Pulse Oximetry 95 98 99 08/21/18 16:30 08/21/18 16:45 08/21/18 17:00 Temperature Pulse Rate 86 83 83 Respiratory Rate 17 14 14 Blood Pressure 112/63 100/61 105/61 Pulse Oximetry 100 99 99 08/21/18 17:15 08/21/18 17:30 08/21/18 17:45 Temperature Pulse Rate 85 86 86 Respiratory Rate 14 14 14 Blood Pressure 104/60 108/60 106/63 Pulse Oximetry 99 97 97 08/21/18 18:00 08/21/18 18:45 08/21/18 20:00 Temperature 98 F 98 F 97.3 F L Pulse Rate 96 H 89 87 Respiratory Rate 15 18 15 Blood Pressure 124/81 120/71 124/69 Pulse Oximetry 96 96 97 08/22/18 00:00 08/22/18 04:00 08/22/18 05:07 Temperature 97.6 F 99.0 F Pulse Rate 98 H 114 H Respiratory Rate 15 16 20 Blood Pressure 124/60 133/60 Pulse Oximetry 93 L 93 L 08/22/18 08:00 08/22/18 11:00 08/22/18 12:00 Temperature 97.6 F 98.0 F Pulse Rate 108 H 95 H Respiratory Rate 17 18 17 Blood Pressure 117/62 108/67 Pulse Oximetry 94 L 93 L Intake & Output 08/21/18 08/22/18 08/22/18 18:59 06:59 18:59 Intake Total 5152.12 / 5152.12 1404 / 1404 1000 / 1000 Output Total 930 / 930 450 / 450 120 / 120 Balance 4222.12 / 4222.12 954 / 954 880 / 880 Weight 450 kg Intake: IV 1152.12 / 1152.12 1054 / 1054 1000 / 1000 D5W/LR + KCL 20 mEq Inj 1,000 1000 / 1000 1000 / 1000 ML @ 125 mls/hr IV.CONT .Q8H FLOR Rx#:[id number] NS Inj 1,000 ML @ 80 mls/hr IV. 46 / 46 954 / 954 CONT .[id number] FLOR Rx#:[id number] Cyklokapron Inj 612 MG In NS 106.12 / 106.12 Inj 100 ML @ 200 mls/hr IV.SIG ONCE FLOR Rx#:[id number] Ancef 1 GM Premix Inj 1 gm In 100 / 100 50 ml @ 100 mls/hr IV.SIG Q6H FLOR Rx#:[id number] Oral 0 / 0 350 / 350 Anesthesia Amount 4000 / 4000 Output: Urine 450 / 450 Estimated Blood Loss 300 / 300 Urine Amount (Catheter) 510 / 510 Indwelling Urethral Catheter 510 / 510 Wound Drainage 120 / 120 120 / 120 Left Hip 120 / 120 120 / 120 Other: Date of Last Bowel Movement 08/18/18 08/18/18 08/18/18 Narrative: GENERAL: Well-nourished, well-developed female sitting up in bed in no acute distress. SKIN: Warm, dry, pale. HEAD: Atraumatic. Normocephalic. EYES: No scleral icterus. No injection or drainage. ENT: No nasal bleeding or discharge. Mucous membranes pink and moist. NECK: Trachea midline. CARDIOVASCULAR: Regular rate and rhythm. RESPIRATORY: No accessory muscle use. Clear to auscultation. Breath sounds equal bilaterally. GASTROINTESTINAL: Abdomen soft, non-tender, nondistended. + Bowel sounds. MUSCULOSKELETAL: Extremities without clubbing, cyanosis, or edema. No obvious deformities. Left hip dressing dry and intact drain noted. LLE warm, capillary refill <3 seconds, +movement and sensation. NEUROLOGICAL: Awake and alert. No obvious cranial nerve deficits. Normal speech. PSYCHIATRIC: Appropriate mood and affect; insight and judgment normal. - Urinary Catheter Management Indwelling Urethral Catheter Cath placed during this visit: yes Reason for continuing: Acute urinary retention Insertion date: 08/20/18 Insertion time: 15:45 Results - Labs CBC & Chem 7: 08/22/18 05:42 08/21/18 06:04 Laboratory Results - last 24 hr 08/20/18 08/21/18 08/22/18 08:31 10:35 05:42 Hgb 9.2 L Hct 26.5 L MTS Gel Crossmatch See Detail See Detail Bld Prod Order Comment - Imaging Impressions Femur X-Ray 08/21/18 15:04 CONCLUSION: Satisfactory appearance post revision left WALTER Pelvis X-Ray 08/21/18 15:06 CONCLUSION: Satisfactory appearance of revision left WALTER. The femoral component is not seen in its entirety on this film of the pelvis - Procedures Left revision total hip arthroplasty, femoral component Left hip revision ORIF of greater trochanter nonunion hip fracture Assessment and Plan - Plan 53 years old female with past medical history significant for MS, anxiety, depression, back pain, neck pain and joint pain who recently underwent total hip replacement 08/14. Patient returns with complaints of pain. Found to have dislocation of prosthetic hip. Prosthetic left hip dislocation- S/P recent left WALTER- 08/14 - Ortho following, 08/20 attempted left total hip arthroplasty reduction of dislocation under anesthesia unsuccessful. -08/21 s/p left revision total hip arthroplasty, femoral component. Left hip revision open reduction, internal fixation of greater trochanteric fracture by Dr. Hurd. - [place] for pain control - PT consult post op Acute posthemorrhagic anemia in the setting of recent WALTER -requiring blood transfusion r/o bleed into the prosthetic hip Underlying chronic aneia H&H on admission 6.6/18.1, prior Hgb around 9 - s/p 2 units of PRBC's -Iron studies consistent with iron deficiency, iron supplement. -H&H stable, 9.2/26.5 Urinary retention, acute -Difficult urination with distended bladder, Cade catheter inserted. Cade cath removed today -Bladder training, start Bethanechol for retention. History of depression/Anxiety- disorganized thoughts - Continue home meds - Follow-up with Dr. 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 CM to help assist with placement.
[2018-08-23] MEDS: Sod Chloride 0.9% Inj 1,000 ML IV.CONT SCH (04:58)
[2018-08-23] MEDS: Morphine Inj 4 MG/ML Vial IV.PUSH PRN ×2 (05:00→12:20)
[2018-08-23 06:03] LABS: Hematocrit 25.7 % (35.0-46.0)
[2018-08-23] MEDS: Pentoxifylline 400 MG Controlled Release Tablet PO SCH (08:58)
[2018-08-23] MEDS: Multivitamin/Minerals Therapeutic Tablet PO SCH ×2 (08:58→22:26)
[2018-08-23] MEDS: Senna/Docusate Sodium 8.6/50 MG Tablet PO SCH ×2 (08:58→22:26)
[2018-08-23] MEDS: FLUoxetine 20 MG Capsule PO SCH (08:58)
[2018-08-23] MEDS: Gabapentin 300 MG Capsule PO SCH ×3 (08:58→18:44)
[2018-08-23] MEDS: Ferrous Sulfate 325 MG Tablet PO SCH (08:58)
[2018-08-23] MEDS: Benztropine 2 MG Tablet PO SCH ×2 (08:58→22:26)
[2018-08-23] MEDS: diazePAM 5 MG Tablet PO PRN (09:10)
--- NOTE | 2018-08-23 11:32 | P.PNOP ---
Subjective Interval history: The patient is resting comfortably in bed and no acute distress. The patient states that there has been some improvement in pain to the left hip. The patient still complains of stiffness to the left leg. Physical Exam Vital signs: Vital Signs 08/22/18 12:00 08/22/18 13:35 08/22/18 14:59 Temperature 98.0 F Pulse Rate 95 H Respiratory Rate 17 16 16 Blood Pressure 108/67 Pulse Oximetry 93 L 08/22/18 16:00 08/22/18 18:10 08/22/18 19:30 Temperature 97.7 F Pulse Rate 90 Respiratory Rate 18 16 16 Blood Pressure 114/70 Pulse Oximetry 95 08/22/18 20:00 08/23/18 00:00 08/23/18 03:38 Temperature 98.3 F 97.9 F 98.1 F Pulse Rate 85 80 89 Respiratory Rate 18 18 18 Blood Pressure 108/61 108/61 117/59 L Pulse Oximetry 93 L 94 L 98 08/23/18 08:00 Temperature 98.5 F Pulse Rate 98 H Respiratory Rate 18 Blood Pressure 116/60 Pulse Oximetry 96 Intake & Output 08/22/18 08/23/18 08/23/18 18:59 06:59 18:59 Intake Total 2480 / 2480 120 / 120 Output Total 2420 / 2420 100 / 100 Balance 60 / 60 20 / 20 Weight 61 kg Intake: IV 1999 D5W/LR + KCL 20 mEq Inj 1,000 1000 / 1000 ML @ 125 mls/hr IV.CONT .Q8H FLOR Rx#:[id number] NS Inj 1,000 ML @ 80 mls/hr IV. 1000 / 1000 CONT .[id number] FLOR Rx#:[id number] Oral 480 / 480 120 / 120 Output: Urine 300 / 300 Urine Amount (Catheter) 1999 Indwelling Urethral Catheter 1999 Wound Drainage 120 / 120 100 / 100 Left Hip 120 / 120 100 / 100 Other: # Voids 1 2 Date of Last Bowel Movement 08/18/18 08/23/18 # Bowel Movements 0 1 Narrative: The patient's dressing is clean, dry, and intact. EHL/TA/G are intact. 2+ pedal pulse. The patient's calf is soft and nontender. Sensation is intact to light touch distally. Compartments are soft. Drain is intact with 10 cc of serosanguineous drainage over the past 12 hours. 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 Toe-touch weightbearing on [left] lower extremity. 2. Aspirin 81 mg twice daily for DVT prophylaxis. 3. Ice as needed for swelling. 4. Stable per ortho for discharge to assisted facility on Sunday or Sunday. 5. The patient will follow up with Dr. Hurd and/or ANNMARIE Lance as previously scheduled. 6. Posterior hip precautions including use of knee immobilizer while in bed. 7. Maintain dressing. Maintain drain until diminished output. We may be able to pull the drain postop day 3 depending upon how much drainage the patient has.
--- NOTE | 2018-08-23 13:37 | P.PN ---
Subjective Interval history: Follow-up visit for left hip prosthesis dislocation following recent total hip replacement 08/14. Patient is seen and examined sitting up in bed in no acute. She denies any fevers, chills, nausea, vomiting or diarrhea. Has been able to void without any dysuria or hesitancy. Discussed rehab discharge, she is agreeable. Physical Exam Vital signs: Vital Signs 08/22/18 14:59 08/22/18 16:00 08/22/18 18:10 Temperature 97.7 F Pulse Rate 90 Respiratory Rate 16 18 16 Blood Pressure 114/70 Pulse Oximetry 95 08/22/18 19:30 08/22/18 20:00 08/23/18 00:00 Temperature 98.3 F 97.9 F Pulse Rate 85 80 Respiratory Rate 16 18 18 Blood Pressure 108/61 108/61 Pulse Oximetry 93 L 94 L 08/23/18 03:38 08/23/18 08:00 08/23/18 12:00 Temperature 98.1 F 98.5 F 98.2 F Pulse Rate 89 98 H 93 H Respiratory Rate 18 18 18 Blood Pressure 117/59 L 116/60 103/55 L Pulse Oximetry 98 96 94 L Intake & Output 08/22/18 08/23/18 08/23/18 18:59 06:59 18:59 Intake Total 2480 / 2480 120 / 120 Output Total 2420 / 2420 100 / 100 20 / 20 Balance 60 / 60 20 / 20 -20 / -20 Weight 61 kg Intake: IV 1999 D5W/LR + KCL 20 mEq Inj 1,000 1000 / 1000 ML @ 125 mls/hr IV.CONT .Q8H FLOR Rx#:[id number] NS Inj 1,000 ML @ 80 mls/hr IV. 1000 / 1000 CONT .[id number] FLOR Rx#:[id number] Oral 480 / 480 120 / 120 Output: Urine 300 / 300 Urine Amount (Catheter) 1999 Indwelling Urethral Catheter 1999 Wound Drainage 120 / 120 100 / 100 20 / 20 Left Hip 120 / 120 100 / 100 20 / 20 Other: # Voids 1 2 Date of Last Bowel Movement 08/18/18 08/23/18 08/23/18 # Bowel Movements 0 1 Narrative: GENERAL: Well-nourished, well-developed female tearful complaining of pain. SKIN: Warm, dry, pale. HEAD: Atraumatic. EYES: No scleral icterus. No injection or drainage. ENT: No nasal bleeding or discharge. Mucous membranes pink and moist. NECK: Trachea midline. CARDIOVASCULAR: Regular rate and rhythm. RESPIRATORY: No accessory muscle use. Clear to auscultation. Breath sounds equal bilaterally. GASTROINTESTINAL: Abdomen soft, non-tender, nondistended. + Bowel sounds. MUSCULOSKELETAL: Extremities without clubbing, cyanosis, or edema. No obvious deformities. Left hip dressing dry and intact drain noted. LLE warm, capillary refill <3 seconds, +movement and sensation. NEUROLOGICAL: Awake and alert. No obvious cranial nerve deficits. Motor grossly within normal limits. 4/5 muscle strength in the arms and legs. Normal speech. PSYCHIATRIC: Appropriate mood and affect; insight and judgment normal. - Urinary Catheter Management Indwelling Urethral Catheter Cath placed during this visit: yes Reason for continuing: Acute urinary retention Insertion date: 08/20/18 Insertion time: 15:45 Results - Labs CBC & Chem 7: 08/23/18 05:48 08/21/18 06:04 Laboratory Results - last 24 hr 08/21/18 08/23/18 10:35 05:48 Hgb 9.0 L Hct 25.7 L MTS Gel Crossmatch See Detail Bld Prod Order Comment - Procedures Left revision total hip arthroplasty, femoral component Left hip revision ORIF of greater trochanter nonunion hip fracture Assessment and Plan - Plan 53 years old female with past medical history significant for MS, anxiety, depression, back pain, neck pain and joint pain who recently underwent total hip replacement 08/14. Patient returns with complaints of pain. Found to have dislocation of prosthetic hip. Prosthetic left hip dislocation- S/P recent left WALTER- 08/14 - Ortho following, 08/20 attempted left total hip arthroplasty reduction of dislocation under anesthesia unsuccessful. -08/21 s/p left revision total hip arthroplasty, femoral component. Left hip revision open reduction, internal fixation of greater trochanteric fracture by Dr. Hurd. [facility] for pain control - PT consult post op - Dressing to stay, DC drain when output decreases, possibly postop day 3 - Clear for DC to SNF Sunday or Sunday per ortho. Acute posthemorrhagic anemia in the setting of recent WALTER -requiring blood transfusion r/o bleed into the prosthetic hip Underlying chronic aneia H&H on admission 6.6/18.1, prior Hgb around 9 - s/p 2 units of PRBC's -Iron studies consistent with iron deficiency, iron supplement. -H&H stable, 9.0/25.7 Urinary retention, acute -Difficult urination with distended bladder, Cade catheter inserted. Cade cath removed 08/22 -Continue Bethanechol, voiding History of depression/Anxiety- disorganized thoughts - Continue home meds - Follow-up with Dr. 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 CM to help assist with placement.
[2018-08-24] MEDS: Morphine Inj 4 MG/ML Vial IV.PUSH PRN (03:50)
[2018-08-24] MEDS: Pentoxifylline 400 MG Controlled Release Tablet PO SCH (07:59)
[2018-08-24] MEDS: FLUoxetine 20 MG Capsule PO SCH (07:59)
[2018-08-24] MEDS: Ferrous Sulfate 325 MG Tablet PO SCH (07:59)
[2018-08-24] MEDS: Senna/Docusate Sodium 8.6/50 MG Tablet PO SCH ×2 (07:59→21:55)
[2018-08-24] MEDS: Multivitamin/Minerals Therapeutic Tablet PO SCH ×2 (07:59→21:55)
[2018-08-24] MEDS: Benztropine 2 MG Tablet PO SCH ×2 (07:59→21:55)
[2018-08-24] MEDS: Gabapentin 300 MG Capsule PO SCH ×3 (07:59→18:21)
[2018-08-24] MEDS: Sod Chloride 0.9% Inj 1,000 ML IV.CONT SCH (08:25)
--- NOTE | 2018-08-24 09:58 | P.PN ---
Subjective Interval history: Follow-up visit for left hip prosthesis dislocation following recent total hip replacement 08/14. Patient is seen and examined sitting up in bed in no acute distress. She denies any fevers, chills, nausea, vomiting, diarrhea, cough, shortness of breath or chest pain. Initially patient states she would like to go home however discussed safety concerns regarding recent discharge with dislocation of hip. Physical Exam Vital signs: Vital Signs 08/23/18 12:00 08/23/18 16:00 08/23/18 23:55 Temperature 98.2 F 97.8 F 98.9 F Pulse Rate 93 H 87 92 H Respiratory Rate 18 Blood Pressure 103/55 L 108/68 133/82 Pulse Oximetry 94 L 95 96 08/24/18 00:30 08/24/18 04:00 08/24/18 08:00 Temperature 98.2 F 98.0 F Pulse Rate 85 76 Respiratory Rate Blood Pressure 144/65 H 123/66 Pulse Oximetry 97 95 Intake & Output 08/23/18 08/24/18 08/24/18 18:59 06:59 18:59 Intake Total 1080 / 1080 Output Total 3 / 3 Balance - / -20 1077 / 1077 Weight 60.2 kg Intake: Oral 1080 / 1080 Output: Urine 3 / 3 Wound Drainage Left Hip Other: # Voids 4 Date of Last Bowel Movement 08/23/18 08/23/18 # Bowel Movements 0 Narrative: GENERAL: Well-nourished, well-developed female sitting up in bed in no acute distress. SKIN: Warm, dry, pale. HEAD: Atraumatic. EYES: No scleral icterus. No injection or drainage. ENT: No nasal bleeding or discharge. Mucous membranes pink and moist. NECK: Trachea midline. CARDIOVASCULAR: Regular rate and rhythm. RESPIRATORY: No accessory muscle use. Clear to auscultation. Breath sounds equal bilaterally. GASTROINTESTINAL: Abdomen soft, non-tender, nondistended. + Bowel sounds. MUSCULOSKELETAL: Extremities without clubbing, cyanosis, or edema. No obvious deformities. Left hip dressing dry and intact drain noted. LLE warm, capillary refill <3 seconds, +movement and sensation. NEUROLOGICAL: Awake and alert. No obvious cranial nerve deficits. Motor grossly within normal limits. 4/5 muscle strength in the arms and legs. Normal speech. PSYCHIATRIC: Appropriate mood and affect; insight and judgment normal. - Urinary Catheter Management Indwelling Urethral Catheter Cath placed during this visit: yes Reason for continuing: Acute urinary retention Insertion date: 08/20/18 Insertion time: 15:45 Results - Labs CBC & Chem 7: 08/23/18 05:48 08/21/18 06:04 - Procedures Left revision total hip arthroplasty, femoral component Left hip revision ORIF of greater trochanter nonunion hip fracture Assessment and Plan - Plan 53 years old female with past medical history significant for MS, anxiety, depression, back pain, neck pain and joint pain who recently underwent total hip replacement 08/14. Patient returns with complaints of pain. Found to have dislocation of prosthetic hip. Prosthetic left hip dislocation- S/P recent left WALTER- 08/14 - Ortho following, 08/20 attempted left total hip arthroplasty reduction of dislocation under anesthesia unsuccessful. -08/21 s/p left revision total hip arthroplasty, femoral component. Left hip revision open reduction, internal fixation of greater trochanteric fracture by Dr. Hurd. - [place] for pain control - PT consult post op - Dressing to stay, DC drain when output decreases, possibly postop day 3 - Clear for DC to SNF Sunday or Sunday per ortho, CM working on discharge pending authorization. Acute posthemorrhagic anemia in the setting of recent WALTER -requiring blood transfusion r/o bleed into the prosthetic hip Underlying chronic aneia H&H on admission 6.6/18.1, prior Hgb around 9 - s/p 2 units of PRBC's -Iron studies consistent with iron deficiency, iron supplement. -H&H stable, 9.0/25.7 Urinary retention, acute -Difficult urination with distended bladder, Cade catheter inserted. Cade cath removed 08/22 -Continue Bethanechol, voiding History of depression/Anxiety- disorganized thoughts - Continue home meds - Follow-up with Dr. Beasley DVT prophylaxis- ASA- per Ortho Discussed Condition With: Patient and RN. Discharge Planning: Pending authorization from insurance.
[2018-08-25] MEDS: Ferrous Sulfate 325 MG Tablet PO SCH (09:36)
[2018-08-25] MEDS: Pentoxifylline 400 MG Controlled Release Tablet PO SCH (09:36)
[2018-08-25] MEDS: Senna/Docusate Sodium 8.6/50 MG Tablet PO SCH (09:36)
[2018-08-25] MEDS: FLUoxetine 20 MG Capsule PO SCH (09:36)
[2018-08-25] MEDS: Gabapentin 300 MG Capsule PO SCH ×2 (09:37→13:00)
[2018-08-25] MEDS: Benztropine 2 MG Tablet PO SCH (09:37)
[2018-08-25] MEDS: Multivitamin/Minerals Therapeutic Tablet PO SCH (09:37)
[2018-08-25] MEDS: diazePAM 5 MG Tablet PO PRN (10:54)
--- NOTE | 2018-08-25 13:00 | P.PN ---
Physical Exam Vital signs: Vital Signs 08/24/18 16:00 08/24/18 20:00 08/25/18 00:00 Temperature 98.0 F 97.9 F 97.7 F Pulse Rate 85 80 76 Respiratory Rate 14 18 20 Blood Pressure 122/58 L 140/81 128/75 Pulse Oximetry 96 98 96 08/25/18 08:00 08/25/18 12:00 Temperature 98.2 F 97.9 F Pulse Rate 71 81 Respiratory Rate 12 12 Blood Pressure 129/74 143/70 H Pulse Oximetry 97 98 Intake & Output 08/24/18 08/25/18 08/25/18 18:59 06:59 18:59 Intake Total 380 / 380 280 / 280 Output Total 650 / 650 1075 / 1075 Balance -270 / -270 -795 / -795 Weight 59 kg Intake: Oral 380 / 380 280 / 280 Output: Urine 600 / 600 1000 / 1000 Wound Drainage 50 / 50 75 / 75 Left Hip 50 / 50 75 / 75 Other: # Voids 1 1 Date of Last Bowel Movement 08/23/18 08/23/18 08/25/18 # Bowel Movements 1 - Urinary Catheter Management Indwelling Urethral Catheter Cath placed during this visit: yes Reason for continuing: Acute urinary retention Insertion date: 08/20/18 Insertion time: 15:45 Results - Labs CBC & Chem 7: 08/23/18 05:48 08/21/18 06:04 - Procedures Left revision total hip arthroplasty, femoral component Left hip revision ORIF of greater trochanter nonunion hip fracture Assessment and Plan - Plan 53 years old female with past medical history significant for MS, anxiety, depression, back pain, neck pain and joint pain who recently underwent total hip replacement 08/14. Patient returns with complaints of pain. Found to have dislocation of prosthetic hip. Prosthetic left hip dislocation- S/P recent left WALTER- 08/14 - Ortho following, 08/20 attempted left total hip arthroplasty reduction of dislocation under anesthesia unsuccessful. -08/21 s/p left revision total hip arthroplasty, femoral component. Left hip revision open reduction, internal fixation of greater trochanteric fracture by Dr. Hurd. - [place] for pain control - PT consult post op - Dressing to stay, DC drain when output decreases, possibly postop day 3 - Clear for DC to SNF Sunday or Sunday per ortho CM working on discharge pending authorization. Acute posthemorrhagic anemia in the setting of recent WALTER -requiring blood transfusion r/o bleed into the prosthetic hip Underlying chronic aneia H&H on admission 6.6/18.1, prior Hgb around 9 - s/p 2 units of PRBC's -Iron studies consistent with iron deficiency, iron supplement. -H&H stable, 9.0/25.7 Urinary retention, acute -Difficult urination with distended bladder, Cade catheter inserted. Cade cath removed 08/22 -Continue Bethanechol, voiding History of depression/Anxiety- disorganized thoughts - Continue home meds - Follow-up with Dr. Beasley DVT prophylaxis- ASA- per Ortho Discharge Planning: Pending authorization from insurance.
--- NOTE | 2018-08-25 14:31 | P.DS ---
Date of admission: 08/20/18 04:13 Primary care physician: Otto Gilbert MD Attending physician on discharge: Willie Calvin Anticipated date of discharge: 08/25/18 Brief History from admission: patient is a 53 years old female brought in by EMS complaining of pain of the left Lower extremity. Patient is very emotional and tearful, diisorganized in thoughts and unable to get a constructive history from her. Review of records with hx of Multiple sclerosis, had left WALTER on 08/14 and DC with home health care. Per patient she still walks independently and uses a cane occasionally. She lives with "Bill, significant other" who called EMS- because "he was sick of me crying " On exam with left hip/post op site swelling , anemic. patient denies any melena or hematochezia or any vaginal bleeding Smokes - 2-3 packs per day At ER , patient was promptly seen by Othopedics and scheduled for surgery this am DS: Medications - Discharge Medications Prescriptions: aspirin 81 mg PO BID #90 tab bethanechol chloride [Urecholine] 10 mg PO TID #90 tab diazepam 5 mg PO Q6HR PRN #4 tab PRN Reason: Anxiety ferrous sulfate [FeroSul] 325 mg PO DAILY #30 tab gabapentin [Neurontin] 300 mg PO TID #90 cap hydrocodone-acetaminophen [Friendship] 1 - 2 tab PO Q6HR PRN #50 tab PRN Reason: Acute Pain hydrocodone-acetaminophen [Friendship] 1 tab PO Q6H PRN #50 tab PRN Reason: pain sennosides-docusate sodium [Senna Plus] 1 tab PO BID #60 tab DS: Summary Hospital Course: 53 years old female with past medical history significant for MS, anxiety, depression, back pain, neck pain and joint pain who recently underwent total hip replacement 08/14. Patient returned to the ER on 08/20 with complaints of pain hip pain. She was found to have dislocation of prosthetic hip. Patient also presented with acute anemia requiring 2 units of PRBCs. Orthopedic services was consulted and on 08/20 patient underwent an attempted left total hip arthroplasty reduction of dislocation under anesthesia which was unsuccessful. Patient returned back to the OR on the 08 21 for left revision total hip arthroplasty, femoral component. Left hip revision ORIF of greater trochanteric fracture by Dr. Hurd. H&H following surgery and transfusion was stable. No acute reports of bleeding. Patient was started on iron supplementation. Pain controlled with oral pain medication. Hip drain removed 08/24, recommendations for aspirin for DVT prophylaxis by orthopedic surgeon as previously patient developed hematoma. Patient hemodynamically stable. Physical therapy with recommendations for PT at rehab. Extensive discussion with patient regarding benefits given her recent fall following her initial hip surgery. Patient is agreeable to going to rehab. Today she is examined sitting up in bed in no acute distress. Denies any fevers, chills, nausea, vomiting, diarrhea, cough, shortness of breath or chest pain. Case management assisting with proper arrangements for discharge. - Time Spent with Patient Total time spent providing and/or coordinating discharge services: Greater than 30 minutes - Quality: VTE Deep Vein Thrombosis/Pulmonary Embolism Present on Admission: No Exam Vital signs: Vital Signs 08/24/18 16:00 08/24/18 20:00 08/25/18 00:00 Temperature 98.0 F 97.9 F 97.7 F Pulse Rate 85 80 76 Respiratory Rate 14 18 20 Blood Pressure 122/58 L 140/81 128/75 Pulse Oximetry 96 98 96 08/25/18 08:00 08/25/18 12:00 Temperature 98.2 F 97.9 F Pulse Rate 71 81 Respiratory Rate 12 12 Blood Pressure 129/74 143/70 H Pulse Oximetry 97 98 Intake & Output 08/24/18 08/25/18 08/25/18 18:59 06:59 18:59 Intake Total 380 / 380 280 / 280 Output Total 650 / 650 1075 / 1075 Balance -270 / -270 -795 / -795 Weight 59 kg Intake: Oral 380 / 380 280 / 280 Output: Urine 600 / 600 1000 / 1000 Wound Drainage 50 / 50 75 / 75 Left Hip 50 / 50 75 / 75 Other: # Voids 1 1 Date of Last Bowel Movement 08/23/18 08/23/18 08/25/18 # Bowel Movements 1 Narrative: GENERAL: Well-nourished, well-developed female sitting up in bed in no acute distress. SKIN: Warm, dry. HEAD: Atraumatic. EYES: No scleral icterus. No injection or drainage. ENT: No nasal bleeding or discharge. Mucous membranes pink and moist. NECK: Trachea midline. CARDIOVASCULAR: Regular rate and rhythm. RESPIRATORY: No accessory muscle use. Clear to auscultation. Breath sounds equal bilaterally. GASTROINTESTINAL: Abdomen soft, non-tender, nondistended. + Bowel sounds. MUSCULOSKELETAL: Extremities without clubbing, cyanosis, or edema. No obvious deformities. Left hip dressing dry and intact, trace edema. LLE warm, capillary refill <3 seconds, +movement and sensation. NEUROLOGICAL: Awake and alert. No obvious cranial nerve deficits. Motor grossly within normal limits. 4/5 muscle strength in the arms and legs. Normal speech. PSYCHIATRIC: Appropriate mood and affect; insight and judgment normal. Results Procedures completed during hospitalization: Left revision total hip arthroplasty, femoral component Left hip revision ORIF of greater trochanter nonunion hip fracture - Impressions ITS Impressions Hip X-Ray 08/20/18 00:39 CONCLUSION: Superior dislocation of prosthetic left hip. Chest X-Ray 08/20/18 00:40 CONCLUSION: No acute findings. Previous fusion across the cervicothoracic junction. Femur X-Ray 08/21/18 15:04 CONCLUSION: Satisfactory appearance post revision left WALTER Pelvis X-Ray 08/21/18 15:06 CONCLUSION: Satisfactory appearance of revision left WALTER. The femoral component is not seen in its entirety on this film of the pelvis Discharge Plan - Discharge Disposition Patient Disposition: 03 Discharge to SNF - Discharge Condition Condition: Fair - Discharge Order Discharge Orders: Discharge Order (Routine); Ordered 08/25/18 Ordered By: Steven Thakkar Orthopedic Clear for Discharge (Routine); Ordered 08/25/18 Ordered By: Anastacio Mckay - Physicians Team Primary Care Provider: Otto Gilbert Attending Provider: Willie Calvin Other Providers: Cooper Gamboa ; Karla Garcia MD ; Huber Menendez MD ; [facility],Agency ; [facility]
== END 2018-08-25 17:02 ==
LOC: NEPC 23:38 → NEDA 08-20 04:13 → N06 08-20 16:38
PROVIDERS: ADMIT Internal Medicine; ATTEND Internal Medicine

== ENCOUNTER 2018-08-30 20:20 | Observation (INO) ==
[2018-08-30 21:31] LABS: Baso # (Auto) 0.1 th/mm3 (0.0-0.2); Baso % (Auto) 0.6 % (0.0-2.0); Eos % (Auto) 0.5 % (0.0-4.0); Hematocrit 25.6 % (35.0-46.0); Hemoglobin 8.8 gm/dL (11.6-15.3); Lymph # (Auto) 0.8 th/mm3 (1.0-4.8); Lymph % (Auto) 9.6 % (9.0-44.0); Mean Corpuscular HGB Conc 34.4 % (32.0-36.0); Mean Corpuscular Hemoglobin 31.7 pg (27.0-34.0); Mean Corpuscular Volume 92.2 fL (80.0-100.0); Mean Platelet Volume 6.8 fL (7.0-11.0); Mono # (Auto) 0.5 th/mm3 (0.0-0.9); Mono % (Auto) 5.9 % (0.0-8.0); Neut # (Auto) 7.1 th/mm3 (1.8-7.7); Neut % (Auto) 83.4 % (16.0-70.0); Platelet Count 503 th/mm3 (150-450); Red Blood Count 2.78 mil/mm3 (4.00-5.30); Red Cell Distribution Width 15.6 % (11.6-17.2); White Blood Count 8.5 th/mm3 (4.0-11.0)
--- NOTE | 2018-08-30 21:37 | XR ---
EXAM DATE: 08/30/2018 9:33 PM EST AGE/SEX: 53 years / Female INDICATIONS: Pain from fall today. CLINICAL DATA: This is the patient's initial encounter. Patient reports that signs and symptoms have been present for 1 day and indicates a pain score of 10/10. MEDICAL/SURGICAL HISTORY: . Prior dislocation. . Hip replacement, left. COMPARISON: [facility], HIP LEFT W AP PELVIS 2V, 08/14/2018. [facility], HIP LEFT W AP PELVIS 2V, 08/20/2018. [facility], HIP LEFT 2V, 08/20/2018. [facility], PELVIS AP 1V, 08/21/2018. [facility], FEMUR LEFT 2V, 08/21/2018. . FINDINGS: Patient has a left hip arthroplasty, acutely dislocated posteriorly and superiorly. Femoral component is long segment. There is a trochanteric claw and multiple cerclage wires. Inferior portions of the clot appeared pulled away from the femur slightly, up to 5 mm. There is some hypertrophic bone adjacent to the acetabulum and greater trochanter. No acute fracture seen. CONCLUSION: Posterior/superior dislocation of the left hip arthroplasty. No fracture demonstrated. Electronically signed by: Hilario Clifford MD 08/30/2018 9:36 PM EST
--- NOTE | 2018-08-30 21:48 | CT ---
EXAM DATE: 08/30/2018 9:39 PM EST AGE/SEX: 53 years / Female INDICATIONS: Trauma; fall. CLINICAL DATA: This is the patient's initial encounter. Patient reports that signs and symptoms have been present for 1 day and indicates a pain score of 7/10. MEDICAL/SURGICAL HISTORY: Multiple sclerosis. Tubal ligation. Cervical fusion, hip surgery RADIATION DOSE: 33.81 CTDI (mGy) COMPARISON: [facility] [place] HEAD W/O CONTRAST, 08/16/2018. . TECHNIQUE: CT of the head without contrast. Using automated exposure control and adjustment of the mA and/or kV according to patient size, radiation dose was kept as low as reasonably achievable to ob tain optimal diagnostic quality images. DICOM format image data is available electronically for revi ew and comparison. FINDINGS: Cerebrum: The ventricles are normal for age. No evidence of midline shift, mass lesion, hemorrhage or acute infarction. No extraaxial fluid collections are seen. Posterior Fossa: The cerebellum and brainstem are intact. The 4th ventricle is midline. The cerebe llopontine angle is unremarkable. Extracranial: The visualized portion of the orbits is intact. Skull: The calvaria is intact. No evidence of skull fracture. CONCLUSION: No acute intracranial findings. . Electronically signed by: Jose Rosales MD 08/30/2018 9:47 PM EST
[2018-08-30 21:49] LABS: Albumin 2.6 g/dL (3.4-5.0); Anion Gap 8 meq/L (5-15); Aspartate Aminotransferase 24 U/L (15-37); Blood Urea Nitrogen 9 mg/dL (7-18); Chloride 108 meq/L (98-107); Glomerular Filtration Rate 81 mL/min (>89); Glucose,Random 74 mg/dL (74-106); Potassium 3.5 meq/L (3.5-5.1); Sodium 139 meq/L (136-145)
[2018-08-30 21:50] LABS: Alanine Aminotransferase 24 U/L (10-53)
[2018-08-30 21:52] LABS: Alkaline Phosphatase 178 U/L (45-117); Total Protein 5.9 g/dL (6.4-8.2)
--- NOTE | 2018-08-30 22:02 | CT ---
EXAM DATE: 08/30/2018 9:49 PM EST AGE/SEX: 53 years / Female INDICATIONS: Trauma; fall. CLINICAL DATA: This is the patient's initial encounter. Patient reports that signs and symptoms have been present for 1 day and indicates a pain score of 7/10. MEDICAL/SURGICAL HISTORY: Multiple sclerosis. Tubal ligation. Cervical fusion, hip surgery RADIATION DOSE: 12.49 CTDI (mGy) COMPARISON: No prior exams available for comparison. TECHNIQUE: Contiguous axial images were obtained using helical multirow detector technique. The vol umetric data was post-processed with multiplanar reconstruction in oblique axial, sagittal, and coron al planes. Using automated exposure control and adjustment of the mA and/or kV according to patient s ize, radiation dose was kept as low as reasonably achievable to obtain optimal diagnostic quality roz ges. DICOM format image data is available electronically for review and comparison. FINDINGS: Vertebrae: Postsurgical findings are noted at C5-6 with solid bone fusion between the C5 and C6 vert ebral bodies. Anterior fusion hardware is seen at C7-T1. No advanced bone bridging at this level. The hardware is intact. No evidence of fracture. Alignment: 3 mm anterolisthesis C4 on C5. 2 mm anterolisthesis C3 on C4. C2-3: Moderate severity bilateral facet arthrosis. Central canal diameter is within normal limits. M inimal bilateral neural foraminal narrowing. C3-4: Severe right-sided facet arthrosis. Moderate left-sided facet arthrosis. Broad-based disc oste ophyte complex. Severe right neural foraminal narrowing. Moderate left neural foraminal narrowing. Ce ntral canal diameter within normal limits. C4-5: Severe left-sided facet arthrosis. Mild right-sided facet arthrosis. Broad-based disc osteophy te complex and 3 mm anterolisthesis. Severe left-sided neural foraminal narrowing. Moderate right martinez ral foraminal narrowing. Central canal diameter within normal limits. C5-6: Postsurgical level. Bony fusion of the vertebral bodies. Bilateral facet arthrosis. Mild bilat eral neural foraminal narrowing. Central canal diameter within normal limits. C6-7: Broad-based disc osteophyte complex. Bilateral facet arthrosis. Moderate bilateral neural fora eufemia narrowing. Central canal diameter within normal limits. C7-T1: Postsurgical level. Central canal diameter within normal limits. Moderate bilateral neural fo raminal narrowing. CONCLUSION: 1. Postsurgical findings and C5-6 and C7-T1. 2. Multilevel degenerative findings with neural foraminal narrowing at multiple levels. 3. No evidence of fracture. Electronically signed by: Jose Rosales MD 08/30/2018 10:01 PM EST
--- NOTE | 2018-08-30 22:43 | XR ---
EXAM DATE: 08/30/2018 10:39 PM EST AGE/SEX: 53 years / Female INDICATIONS: Post reduction left hip. CLINICAL DATA: This is the patient's subsequent encounter. Patient reports that signs and symptoms h ave been present for 1 day and indicates a pain score of Nonresponsive. MEDICAL/SURGICAL HISTORY: None. Non-responsive. COMPARISON: [facility] [place], HIP AP ONLY LEFT W AP PELVIS, 08/30/2018. . FINDINGS: Left hip arthroplasty previous dislocation has been reduced. Alignment appears normal. Persistent gap between the trochanteric claw and the lateral margin of the femur. CONCLUSION: Interim reduction of the previously seen left hip arthroplasty dislocation. Electronically signed by: Hilario Clifford MD 08/30/2018 10:42 PM EST
--- NOTE | 2018-08-30 22:58 | ED ---
HPI General Chief complaint: Fall Stated complaint: Fall Time Seen by Provider: 08/30/18 21:03 Source: patient, EMS, RN notes reviewed and old records reviewed Mode of arrival: EMS History of Present Illness HPI narrative: 53yF presenting after fall at home. The patient has had numerous recent left hip procedures, including a total hip replacement and revision (see below); she says that she is taking [place] for pain and was ambulating with a walker when she tripped, landing on her left hip. She was able to stand up and get onto a stretcher with EMS but reports continued left hip pain. She is unsure if she hit her head or lost consciousness but also complains of diffuse posterior neck pain. Orthopedist is Dr. Hurd, patient had a left hip treatment of comminuted intertrochanteric fracture with intramedullary nail on 05/15/18, left hip conversion of previous surgery to total hip arthroplasty with revision components and ORIF of greater trochanteric nonunion on 08/14/18, attempted/ unsuccessful OR closed reduction of left hip dislocation in the OR on 08/20/18 ( where the hardware was noted to be loose and malpositioned), and left revision total hip arthroplasty, femoral component/ left hip revision open reduction, internal fixation of greater trochanteric fracture on 08/21/18. Related Data Home Medications Medication Instructions Recorded Confirmed baclofen 20 mg PO TID 05/29/18 08/30/18 bupropion HCl [Wellbutrin XL] 300 mg PO DAILY 05/29/18 08/31/18 fluoxetine [Prozac] 40 mg PO DAILY 05/29/18 08/30/18 Latuda 60 mg PO DAILY 08/16/18 08/30/18 benztropine 2 mg PO BID 08/16/18 08/30/18 Previous Rx's Medication Instructions Recorded aspirin 81 mg PO BID #90 tab 08/22/18 hydrocodone-acetaminophen [[place]] 1 tab PO Q6H PRN #50 tab 08/22/18 bethanechol chloride [Urecholine] 10 mg PO TID #90 tab 08/25/18 diazepam 5 mg PO Q6HR PRN #4 tab 08/25/18 gabapentin [Neurontin] 300 mg PO TID #90 cap 08/25/18 sennosides-docusate sodium [Senna 1 tab PO BID #60 tab 08/25/18 Plus] Allergies Allergy/AdvReac Type Severity Reaction Status Date / Time No Known Allergies Allergy Verified 08/19/18 23:43 Review of Systems ROS: all other systems reviewed are negative [facility] Medical History Medical History Anxiety (Acute) Back pain (Acute) Depression (Acute) History of MRSA infection (Acute) Joint pain (Acute) Multiple sclerosis (Acute) Neck pain (Acute) Wears glasses (Acute) Surgical History Surgical History History of fusion of cervical spine (Acute) History of hip surgery (Acute) History of tubal ligation (Acute) Family History Family History Other Family history non-contributory Social History Social History Substance History: No History of Abuse Second Hand Smoke Exposure: Yes Smoking Status: Current every day smoker Tobacco Type: Cigarettes How Often Do You Have a Drink Containing Alcohol: Never Recent Travel in [facility] within the Last 8 Weeks: No Recent Out of Country Travel within the Last 8 Weeks: No Immunization History Tetanus Immunization: <5 Years Exam Const Other: Sleepy but easily arousable to voice HENOR Head: normocephalic and atraumatic Face and sinus: normal facial exam Eyes General: appearance normal, both eyes and all related structures Pupils: PERRL Chest Chest: normal inspection of the chest Resp Effort & Inspection: normal respiratory effort Auscultation: no rhonchi and no wheezes Cardio Rate: regular rate Rhythm: regular rhythm GI Inspection: non-distended Palpation: soft and nontender Skin General: no rashes or lesions noted Neuro Other: Sleepy but easily arousable to voice, answers questions appropriately, no focal neuro deficits Extrem Other: Left leg shortened and internally rotated 1-2+ non-pitting edema of left lower extremity Procedures Orthopedic Joint Reduction Left prosthetic hip reduction: Time Out Performed: Yes Side: left Joint Reduction Location: hip Analgesia: procedural sedation Technique Used: direct manipulation Post-Reduction Neuro Exam: intact Post-Reduction Vascular Exam: intact Post Reduction X-Ray Obtained: Yes Post Reduction X-Ray Results: reduced Splint Applied: Yes (left knee immobilizer) Patient Tolerated Procedure: well Procedural Sedation Indications: fracture/dislocation reduction Presedation Evaluation: Please see physical exam ASA Class: ASA 1 Normal Healthy Patient Time of Last PO Intake: 00:00 Preparation: school lunch monitor applied, pulse oximeter, capnometry used, supplemental O2 applied, suction/airway equipment at bedside and IV secured IV Propofol Dose (mgs): 100 Patient Tolerated Procedure: well and no complications Course Initial Documented Vital Signs Temperature 97.9 F 08/30/18 20:26 Pulse Rate 98 H 08/30/18 20:26 Respiratory Rate 18 08/30/18 20:26 Blood Pressure 114/59 L 08/30/18 20:26 Pulse Oximetry 100 08/30/18 20:26 Last Documented Vital Signs Temperature 98.3 F 09/01/18 07:50 Pulse Rate 86 09/01/18 07:50 Respiratory Rate 20 09/01/18 07:50 Blood Pressure 129/70 09/01/18 07:50 Pulse Oximetry 98 09/01/18 07:50 Medical Decision Making [facility] Narrative Medical decision making narrative: Assessment: 53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 We have consulted case management. They report that she can go to rehab if she is admitted to observation with OT and PT consultation. Dr. Cross has been called. Medical Screen Exam Complete: Yes Emergency Medical Condition: Yes Differential Diagnosis Differential Diagnosis: Differential diagnosis includes, but is not limited to: fracture, dislocation, hardware malfunction, ICH, polysubstance abuse, electrolyte abnormality, dehydration Medical Records Medical records reviewed: Yes I reviewed the patient's medical records. Lab Data Lab results reviewed: Yes I reviewed the patient's lab results. Result diagrams: 08/30/18 21:23 08/30/18 21:23 Lab Results 08/30/18 08/30/18 08/31/18 Range/Units 21:23 21:23 01:01 WBC 8.5 (4.0-11.0) th/mm3 RBC 2.78 L (4.00-5.30) mil/mm3 Hgb 8.8 L (11.6-15.3) gm/dL Hct 25.6 L (35.0-46.0) % MCV 92.2 (80.0-100.0) fL MCH 31.7 (27.0-34.0) pg MCHC 34.4 (32.0-36.0) % RDW 15.6 (11.6-17.2) % Plt Count 503 H D (150-450) th/mm3 MPV 6.8 L (7.0-11.0) fL Neut % (Auto) 83.4 H (16.0-70.0) % Lymph % (Auto) 9.6 (9.0-44.0) % White % (Auto) 5.9 (0.0-8.0) % Eos % (Auto) 0.5 (0.0-4.0) % Baso % (Auto) 0.6 (0.0-2.0) % Neut # (Auto) 7.1 (1.8-7.7) th/mm3 Lymph # (Auto) 0.8 L (1.0-4.8) th/mm3 White # (Auto) 0.5 (0.0-0.9) th/mm3 Eos # (Auto) 0.0 (0.0-0.4) th/mm3 Baso # (Auto) 0.1 (0.0-0.2) th/mm3 WBC Differential . Differential Comment Auto diff final Sodium 139 (136-145) meq/L Potassium 3.5 (3.5-5.1) meq/L Chloride 108 H (98-107) meq/L Carbon Dioxide 23.0 (21.0-32.0) meq/L Anion Gap 8 (5-15) meq/L BUN 9 (7-18) mg/dL Creatinine 0.74 (0.50-1.00) mg/dL Estimated GFR 81 L (>89) mL/min Random Glucose 74 (74-106) mg/dL Calcium 8.0 L (8.5-10.1) mg/dL Magnesium 2.0 (1.5-2.5) mg/dL Total Bilirubin 0.5 (0.2-1.0) mg/dL AST 24 (15-37) U/L ALT 24 (10-53) U/L Alkaline Phosphatase 178 H (45-117) U/L Total Protein 5.9 L (6.4-8.2) g/dL Albumin 2.6 L (3.4-5.0) g/dL Urine Color (Yellw/Straw) Urine Clarity (Clear) Urine pH (5.0-8.5) Ur Specific [place] (1.002-1.035) Urine Protein (Neg-Trace) mg/dL Urine Glucose (UA) (Negative) mg/dL Urine Ketones (Negative) mg/dL Urine Occult Blood (Negative) Urine Nitrate (Negative) Urine Bilirubin (Negative) Urine Urobilinogen (Less than 2) mg/dL Ur Leukocyte Esterase (Negative) Urine RBC (0-3) /hpf Urine WBC (0-5) /hpf Ur Squamous Epith Cells (0-5) /hpf Hyaline Casts (0-3) /lpf Urine Mucus (Occasional) /lpf Micro UA Comment Ur Microscopic Review Urine Culture Comments Urine Opiates Screen Pos H (Neg) Ur Barbiturates Screen Neg (Neg) Ur Amphetamines Screen Neg (Neg) U Benzodiazepines Scrn Pos H (Neg) Urine Cocaine Screen Neg (Neg) U Cannabinoids Screen Neg (Neg) Serum Alcohol Less than 3 (0-5) mg/dL 08/31/18 Range/Units 01:01 WBC (4.0-11.0) th/mm3 RBC (4.00-5.30) mil/mm3 Hgb (11.6-15.3) gm/dL Hct (35.0-46.0) % MCV (80.0-100.0) fL MCH (27.0-34.0) pg MCHC (32.0-36.0) % RDW (11.6-17.2) % Plt Count (150-450) th/mm3 MPV (7.0-11.0) fL Neut % (Auto) (16.0-70.0) % Lymph % (Auto) (9.0-44.0) % White % (Auto) (0.0-8.0) % Eos % (Auto) (0.0-4.0) % Baso % (Auto) (0.0-2.0) % Neut # (Auto) (1.8-7.7) th/mm3 Lymph # (Auto) (1.0-4.8) th/mm3 White # (Auto) (0.0-0.9) th/mm3 Eos # (Auto) (0.0-0.4) th/mm3 Baso # (Auto) (0.0-0.2) th/mm3 WBC Differential Differential Comment Sodium (136-145) meq/L Potassium (3.5-5.1) meq/L Chloride (98-107) meq/L Carbon Dioxide (21.0-32.0) meq/L Anion Gap (5-15) meq/L BUN (7-18) mg/dL Creatinine (0.50-1.00) mg/dL Estimated GFR (>89) mL/min Random Glucose (74-106) mg/dL Calcium (8.5-10.1) mg/dL Magnesium (1.5-2.5) mg/dL Total Bilirubin (0.2-1.0) mg/dL AST (15-37) U/L ALT (10-53) U/L Alkaline Phosphatase (45-117) U/L Total Protein (6.4-8.2) g/dL Albumin (3.4-5.0) g/dL Urine Color Straw (Yellw/Straw) Urine Clarity Clear (Clear) Urine pH 5.0 (5.0-8.5) Ur Specific [place] 1.008 (1.002-1.035) Urine Protein Negative (Neg-Trace) mg/dL Urine Glucose (UA) Negative (Negative) mg/dL Urine Ketones 20 (Negative) mg/dL Urine Occult Blood Negative (Negative) Urine Nitrate Negative (Negative) Urine Bilirubin Negative (Negative) Urine Urobilinogen Less than 2 (Less than 2) mg/dL Ur Leukocyte Esterase Negative (Negative) Urine RBC Less than 1 (0-3) /hpf Urine WBC 2 (0-5) /hpf Ur Squamous Epith Cells 2 (0-5) /hpf Hyaline Casts 1 (0-3) /lpf Urine Mucus Few H (Occasional) /lpf Micro UA Comment Culture not ind Ur Microscopic Review Not Reportable Urine Culture Comments Culture not ind Urine Opiates Screen (Neg) Ur Barbiturates Screen (Neg) Ur Amphetamines Screen (Neg) U Benzodiazepines Scrn (Neg) Urine Cocaine Screen (Neg) U Cannabinoids Screen (Neg) Serum Alcohol (0-5) mg/dL Imaging Data Radiologist's impression: Cervical Spine CT 08/30/18 21:15 CONCLUSION: 1. Postsurgical findings and C5-6 and C7-T1. 2. Multilevel degenerative findings with neural foraminal narrowing at multiple levels. 3. No evidence of fracture. Head CT 08/30/18 21:15 CONCLUSION: No acute intracranial findings. . Hip X-Ray 08/30/18 21:15 CONCLUSION: Posterior/superior dislocation of the left hip arthroplasty. No fracture demonstrated. Hip X-Ray 08/30/18 22:26 CONCLUSION: Interim reduction of the previously seen left hip arthroplasty dislocation. Discharge Plan Discharge Disposition Patient Disposition: ED Admit(ED Internal Use Only) Discharge Condition Condition: Good Discharge Order Discharge Orders: ED Use Only Admit Order (Routine); Ordered 08/31/18 Ordered By: Samantha Corona Discharge Details Diagnosis: Dislocation of internal left hip prosthesis, Fall at home Physicians Team ED Provider: Juliette Reed Primary Care Provider: Otto Gilbert Attending Provider: Orion Barber Other Providers: [employer] Status ED Status: Left Department Discharge Information Discharge Date/Time: 08/31/18 03:18
[2018-08-31 01:19] LABS: Amphetamine Screen,Urine Neg (Neg); Barbiturate Screen,Urine Neg (Neg); Cannabinoid Screen,Urine Neg (Neg); Cocaine Screen,Urine Neg (Neg)
[2018-08-31 01:30] LABS: Bilirubin,Urine Negative (Negative); Clarity,Urine Clear (Clear); Color,Urine Straw (Yellw/Straw); Glucose,Urine (UA) Negative (Negative); Hyaline Casts,Urine 1 /lpf (0-3); Leukocyte Esterase,Urine Negative (Negative); Mucus,Urine Few /lpf (Occasional); Nitrite,Urine Negative (Negative); Specific Gravity,Urine 1.008 (1.002-1.035); Squamous Epithelial Cell,Urine 2 /hpf (0-5)
[2018-08-31 01:35] LABS: Opiate Screen,Urine Pos (Neg)
[2018-08-31] MEDS ORDERED: Haloperidol Inj 5 MG/ML Ampul IV.PUSH PRN (01:53)
[2018-08-31] MEDS ORDERED: Bisacodyl 10 MG Supp RECTAL PRN (01:54)
[2018-08-31] MEDS ORDERED: Acetaminophen 325 MG Tablet PO PRN (01:54)
--- NOTE | 2018-08-31 02:35 | P.HPIM ---
History of Present Illness Primary Care Physician: Otto Gilbert MD History of Present Illness: This is a 53-year-old female with a PMH of Anxiety, Depression, MS, Chronic Pain , Narcotic Dependence and Recurrent Falls who was brought to the ER by EMS after fall w/ c/o left hip pain. Pt w/ previous Left WALTER 08/14/[address] Hurd , admitted 08/20-08/25/18 after fall w/ dislocation of left hip prosthesis, s/p Left WALTER Reduction 08/20/18 and Left WALTER Revision by Dr. Hurd 08/21/18. Had episode of anemia during hospitalization requiring transfusion, and was started on ASA for anticoagulation due to h/o previous hematoma, ultimately d/c'd to SNF per records, however per EMS, pt picked up at [facility] after fall. Pt had gotten up and walked herself to the couch w/ her walker, but notes persistent pain. On arrival, BP 114/59, HR 98, O2 sat 100% on RA, Afebrile. Hemoglobin 8.8, PC 9.0 on 08/23/2018. Chemistry unremarkable. UA negative for UTI. Urine Drug Screen positive for Opiates and Benzos. Alcohol negative. CT Head/C-spine with no acute findings. Left Hip X- ray with posterior/superior dislocation of left hip arthroplasty, no fracture, s /p successful reduction of left hip by ER physician. Pt to be d/c'd, however significant gait instability upon ambulation requiring assistance, Case Management recommendation for admission w/ PT/OT to attempt placement. - Diagnosis (1) Recurrent falls (2) Anemia (3) Tobacco abuse (4) Hip dislocation, left Review of Systems PAST FAMILY HISTORY: Reviewed. 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 - Medical History Medical History: Medical History (Last Reviewed 08/30/18 @ 23:06 by Juliette Reed DO) Anxiety Back pain Depression History of MRSA infection Joint pain Multiple sclerosis Neck pain Wears glasses - Surgical History Surgical History: Surgical History (Last Reviewed 08/30/18 @ 23:06 by Juliette Reed DO) History of fusion of cervical spine History of hip surgery History of tubal ligation - Family History Family History: Family History (Last Reviewed 08/30/18 @ 23:06 by Juliette Reed DO) Other Family history non-contributory - Tobacco History Second Hand Smoke Exposure: Yes Tobacco Use In Past 30 Days: Yes Smoking Status: Current every day smoker Tobacco Type: Cigarettes - Alcohol History How Often Do You Have a Drink Containing Alcohol: 2 to 3 times a week - Substance Use History Substance History: No History of Abuse - Travel History Recent Travel in the [place] Within the Last 8 Weeks: No Recent Travel Out of the Country Within the Last 8 Weeks: No - Immunization History Tetanus Immunization: <5 Years Medications and Allergies Active Medications: Active Medications Acetaminophen (Tylenol) 650 mg PO Q4H PRN PRN Reason: Temp > 100.4 Al Hydroxide/Mg Hydroxide (Milk Of Magnesia Liq) 30 ml PO Q12H PRN PRN Reason: Mild Constipation Aspirin (Aspirin Chew) 81 mg PO BID FLOR Benztropine Mesylate (Cogentin) 2 mg PO BID FLOR Bisacodyl (Dulcolax Supp) 10 mg RECTAL DAILY PRN PRN Reason: SEVERE CONSITIPATION Flumazenil (Romazecon Inj) 0.2 mg IV.PUSH Q1M PRN PRN Reason: OVERSEDATION Fluoxetine HCl (Prozac) 40 mg PO DAILY FLOR Folic Acid (Folic Acid) 1 mg PO DAILY [facility] Stop: 09/05/18 08:59 Haloperidol Lactate (Haldol Inj) 1 mg IV.PUSH Q15M PRN PRN Reason: for severe agitation Lactulose (Lactulose Liq) 30 ml PO DAILY PRN PRN Reason: SEVERE CONSITIPATION Lorazepam (Ativan) 1 mg PO Q4H PRN PRN Reason: for CIWA 8-10 Lorazepam (Ativan) 2 mg PO Q2H PRN PRN Reason: for CIWA 11-14 Lorazepam (Ativan Inj) 2 mg IV.PUSH Q2H PRN PRN Reason: for CIWA 11-14 Lorazepam (Ativan Inj) 2 mg IV.PUSH Q1H PRN PRN Reason: for CIWA 15-20 Lorazepam (Ativan Inj) 1 mg IV.PUSH Q4H PRN PRN Reason: for CIWA 8-10 Lorazepam (Ativan Inj) 2 mg IV.PUSH Q15M PRN PRN Reason: for CIWA > 20 Multivitamins/Minerals (Theragran-M) 1 tab PO DAILY [facility] Stop: 09/05/18 08:59 Non-Formulary Medication (Bupropion Hcl [Wellbutrin Xl]) 300 mg PO TID [facility] Ondansetron HCl (Zofran Inj) 4 mg IV.PUSH Q6H PRN PRN Reason: NAUSEA OR VOMITING Senna/Docusate Sodium (Sandie-Colace) 1 tab PO BID [facility] Sennosides (Senokot) 17.2 mg PO Q12H PRN PRN Reason: Moderate Constipation Sodium Chloride (Ns Flush) 2 ml IV.FLUSH BID [facility] Sodium Chloride (Ns Flush) 2 ml IV.FLUSH PRN PRN PRN Reason: FLUSH AFTER USING IV ACCESS Thiamine HCl (Vitamin B1) 100 mg PO DAILY [facility] Allergies Allergy/AdvReac Type Severity Reaction Status Date / Time No Known Allergies Allergy Verified 08/19/18 23:43 Home Medications Medication Instructions Recorded Confirmed Type baclofen 20 mg PO TID 05/29/18 08/30/18 History bupropion HCl [Wellbutrin XL] 300 mg PO TID 05/29/18 08/30/18 History fluoxetine [Prozac] 40 mg PO DAILY 05/29/18 08/30/18 History Latuda 60 mg PO DAILY 08/16/18 08/30/18 History benztropine 2 mg PO BID 08/16/18 08/30/18 History Exam Vital signs: Vital Signs 08/30/18 20:26 08/30/18 21:52 08/31/18 01:20 Temperature 97.9 F Pulse Rate 98 H 96 H 97 H Respiratory Rate 18 20 18 Blood Pressure 114/59 L 143/82 H 128/60 Pulse Oximetry 100 100 100 Intake & Output 08/30/18 08/30/18 08/31/18 06:59 18:59 06:59 Weight 49.895 kg Narrative: PE: GENERAL: Middle-aged white female in no acute distress, sleeping but arousable, answers questions. SKIN: Focused skin assessment warm and dry. HEENT: PERRLA, EOMI. No scleral icterus or conjunctival pallor. No lid lag or facial droop. CARDIOVASCULAR: Regular rate and rhythm. No obvious murmurs to auscultation. No chest tenderness to palpation. RESPIRATORY: No obvious rhonchi or wheezing. Clear to auscultation. Breath sounds equal bilaterally. GASTROINTESTINAL: Abdomen soft, non-tender, nondistended. BS normal. MUSCULOSKELETAL: Extremities without clubbing, cyanosis, or edema. No obvious deformities. Decreased ROM of LLE due to pain. NEUROLOGICAL: Awake, alert and oriented x4. No focal neurologic deficits. Moving both upper and lower extremities spontaneously. PSYCHIATRIC: Appropriate mood and affect. Insight and judgment normal. Results - Labs CBC & Chem 7: 08/30/18 21:23 08/30/18 21:23 Labs: Short CBC 08/30/18 Range/Units 21:23 WBC 8.5 (4.0-11.0) th/mm3 Hgb 8.8 L (11.6-15.3) gm/dL Hct 25.6 L (35.0-46.0) % Plt Count 503 H D (150-450) th/mm3 BMP 08/30/18 21:23 Sodium 139 Potassium 3.5 Chloride 108 H Carbon Dioxide 23.0 BUN 9 Creatinine 0.74 Calcium 8.0 L Liver Function 08/30/18 Range/Units 21:23 Total Bilirubin 0.5 (0.2-1.0) mg/dL AST 24 (15-37) U/L ALT 24 (10-53) U/L Alkaline Phosphatase 178 H (45-117) U/L Albumin 2.6 L (3.4-5.0) g/dL Urine 08/31/18 Range/Units 01:01 Urine Color Straw (Yellw/Straw) Urine Clarity Clear (Clear) Urine pH 5.0 (5.0-8.5) Ur Specific [place] 1.008 (1.002-1.035) Urine Protein Negative (Neg-Trace) mg/dL Urine Glucose (UA) Negative (Negative) mg/dL - Imaging Impressions Cervical Spine CT 08/30/18 21:15 CONCLUSION: 1. Postsurgical findings and C5-6 and C7-T1. 2. Multilevel degenerative findings with neural foraminal narrowing at multiple levels. 3. No evidence of fracture. Head CT 08/30/18 21:15 CONCLUSION: No acute intracranial findings. . Hip X-Ray 08/30/18 21:15 CONCLUSION: Posterior/superior dislocation of the left hip arthroplasty. No fracture demonstrated. Hip X-Ray 08/30/18 22:26 CONCLUSION: Interim reduction of the previously seen left hip arthroplasty dislocation. Caprini VTE Risk Assessment Caprini VTE Risk Assessment: No/Low Risk (score <= 1) Caprini Risk Assessment Model: Point Value = 1 Point Value = 2 Point Value = 3 Point Value = 5 Age 41-60 Minor surgery BMI > 25 kg/m2 Swollen legs Varicose veins or History of unexplained or recurrent spontaneous Oral contraceptives or hormone replacement Sepsis (< 1 month) Serious lung disease, including pneumonia (< 1 month) Abnormal pulmonary function Acute myocardial infarction Congestive heart failure (< 1 month) History of inflammatory bowel disease Medical patient at bed rest Age 61-74 Arthroscopic surgery Major open surgery (> 45 min) Laparoscopic surgery (> 45 min) Malignancy Confined to bed (> 72 hours) Immobilizing plaster cast Central venous access Age >= 75 History of VTE Family history of VTE Factor V Leiden Prothrombin 11101A Lupus anticoagulant Anticardiolipin antibodies Elevated serum homocysteine Heparin-induced thrombocytopenia Other congenital or acquired thrombophilia Stroke (< 1 month) Elective arthroplasty Hip, pelvis, or leg fracture Acute spinal cord injury (< 1 month) Prophylaxis Regimen: Total Risk Factor Score Risk Level Prophylaxis Regimen 0-1 Low Early ambulation 2 Moderate Order ONE of the following: *Sequential Compression Device (SCD) *Heparin 5000 units SQ BID 3-4 Higher Order ONE of the following medications: *Heparin 5000 units SQ TID *Enoxaparin/Lovenox 40 mg SQ daily (WT < 150 kg, CrCl > 30 mL/min) *Enoxaparin/Lovenox 30 mg SQ daily (WT < 150 kg, CrCl > 10-29 mL/min) *Enoxaparin/Lovenox 30 mg SQ BID (WT < 150 kg, CrCl > 30 mL/min) AND/OR *Sequential Compression Device (SCD) 5 or more Highest Order ONE of the following medications: *Heparin 5000 units SQ TID (Preferred with Epidurals) *Enoxaparin/Lovenox 40 mg SQ daily (WT < 150 kg, CrCl > 30 mL/min) *Enoxaparin/Lovenox 30 mg SQ daily (WT < 150 kg, CrCl > 10-29 mL/min) *Enoxaparin/Lovenox 30 mg SQ BID (WT < 150 kg, CrCl > 30 mL/min) AND *Sequential Compression Device (SCD) Assessment and Plan - Assessment (1) Recurrent falls Code(s): R29.6 - Repeated falls Status: Acute (2) Anemia Code(s): D64.9 - Anemia, unspecified Status: Acute (3) Tobacco abuse Code(s): Z72.0 - Tobacco use Status: Acute (4) Hip dislocation, left Code(s): S73.005A - Unspecified dislocation of left hip, initial encounter Status: Acute - Plan A/P: 1. Recurrent Falls: pt w/ h/o chronic pain, chronic narcotic/benzo dependence , per review of records, concern for misuse/overmedication leading to recurrent falls. UDS +opiates and benzo. Unclear if h/o alcohol abuse, Alcohol negative , will start CIWA if needed. 2. Left Hip Dislocation: secondary to above, h/o Left WALTER 08/14/18, followed by fall w/ dislocation left hip prosthesis s/p reduction 08/20/18 and Left WALTER revision 08/21/18, now w/ recurrent fall and left hip dislocation, no fracture on imaging, s/p successful reduction by ER physician, however +gait instability. PT/OT for eval/tx, Case Management for assistance w/ Inpatient Rehab. 3. Anemia: Hgb 8.8, previously 9.0, monitor closely, previously requiring transfusion, no signs of active bleeding. 4. Tobacco Abuse: NicoDerm prn if needed. 5. DVT Prophylaxis: SCD/Teds 6. Social work for d/c planning as needed. 7. Case discussed w/ ER physician at length, labs/records/imaging reviewed by me.
[2018-08-31] MEDS: Morphine Sulfate Inj 2 MG/ML Vial IV.PUSH PRN ×6 (05:10→23:30)
[2018-08-31] MEDS ORDERED: buPROPion 150 MG XL 24 HR Tablet PO SCH (09:00)
[2018-08-31] MEDS: Benztropine 2 MG Tablet PO SCH ×2 (09:41→21:01)
[2018-08-31] MEDS: Senna/Docusate Sodium 8.6/50 MG Tablet PO SCH ×2 (09:41→21:01)
[2018-08-31] MEDS: FLUoxetine 20 MG Capsule PO SCH (09:41)
[2018-08-31] MEDS: Folic Acid 1 MG Tablet PO SCH (09:41)
[2018-08-31] MEDS: Multivitamin/Minerals Therapeutic Tablet PO SCH (09:41)
[2018-08-31] MEDS: LORazepam 1 MG Tablet PO PRN (19:46)
[2018-09-01] MEDS: Folic Acid 1 MG Tablet PO SCH (10:07)
[2018-09-01] MEDS: FLUoxetine 20 MG Capsule PO SCH (10:08)
[2018-09-01] MEDS: Senna/Docusate Sodium 8.6/50 MG Tablet PO SCH ×2 (10:08→20:27)
[2018-09-01] MEDS: Benztropine 2 MG Tablet PO SCH ×2 (10:09→20:26)
[2018-09-01] MEDS: Multivitamin/Minerals Therapeutic Tablet PO SCH (10:10)
[2018-09-01] MEDS: buPROPion 150 MG XL 24 HR Tablet PO SCH (10:11)
[2018-09-01] MEDS: Morphine Sulfate Inj 2 MG/ML Vial IV.PUSH PRN ×4 (10:13→20:27)
--- NOTE | 2018-09-01 17:32 | P.PNIM ---
Subjective Interval history: Patient is seen lying quietly in bed. She is anxious to be discharged. Confirms to me that she lives alone in an complex full of "little old ladies". She does not have anybody at home to help her with transfers or ADLs. Hip pain is currently well controlled. No chest pain or shortness of breath. No nausea vomiting or diarrhea. Nursing reports no adverse event Physical Exam Vital signs: Last Vital Signs Temp 99 F 09/01/18 15:05 Pulse 93 H 09/01/18 15:05 Resp 20 09/01/18 15:05 BP 118/60 09/01/18 15:05 Pulse Ox 97 09/01/18 15:05 Intake & Output 08/30/18 08/31/18 09/01/18 09/02/18 06:59 06:59 06:59 06:59 Intake Total 1920 / 1920 720 / 720 Output Total 603 / 603 6 / Balance 1317 / 1317 714 / 714 Weight 52.4 kg Narrative: GENERAL: Middle-aged white female in no acute distress SKIN: Focused skin assessment warm and dry. CARDIOVASCULAR: Regular rate and rhythm. No obvious murmurs to auscultation. RESPIRATORY: No obvious rhonchi or wheezing. Clear to auscultation. Breath sounds equal bilaterally. GASTROINTESTINAL: Abdomen soft, non-tender, nondistended. BS normal. MUSCULOSKELETAL: Extremities without clubbing, cyanosis, or edema. No obvious deformities. Decreased ROM of LLE due to pain. NEUROLOGICAL: Awake, alert and oriented x4. No focal neurologic deficits. Moving both upper and lower extremities spontaneously. PSYCHIATRIC: Appropriate mood and affect. Insight and judgment normal. Results Labs CBC & Chem 7: 08/30/18 21:23 08/30/18 21:23 Assessment and Plan (1) Recurrent falls: Code(s): R29.6 - Repeated falls Status: Acute (2) Anemia: Code(s): D64.9 - Anemia, unspecified Status: Acute (3) Tobacco abuse: Code(s): Z72.0 - Tobacco use Status: Acute (4) Hip dislocation, left: Code(s): S73.005A - Unspecified dislocation of left hip, initial encounter Status: Acute Plan Patient is a 53-year-old female with a past medical history of anxiety , depression, MS, chronic pain, narcotic dependence and frequent falls who was brought to the ER by EMS after a fall with complaint of left hip pain. Pt w/ previous Left WALTER 08/14/[address] Hurd, admitted 08/20-08/25/18 after fall w/ dislocation of left hip prosthesis, s/p Left WALTER Reduction 08/20/18 and Left WALTER Revision by Dr. Hurd 08/21/18. Recurrent Falls: pt w/ h/o chronic pain, chronic narcotic/benzo dependence, per review of records, concern for misuse/overmedication leading to recurrent falls. -UDS +opiates and benzo. -PT and OT ordered Left Hip Dislocation: secondary to above -s/p successful reduction by ER physician, however +gait instability. Anemia: Hgb 8.8, previously 9.0 -monitor closely, previously requiring transfusion, no signs of active bleeding. Tobacco Abuse: -NicoDerm prn if needed. DVT Prophylaxis: SCD/Teds Discharge planning: Medically stable at this time. Needs auth for rehab Progress Note: Quality VTE Deep Vein Thrombosis/Pulmonary Embolism Present on Admission: No _ (1) Anemia Qualifiers: Anemia type: Iron deficiency anemia type: Vitamin B12 deficiency anemia type: Folate deficiency anemia type: Bone marrow failure anemia type: Hemolytic anemia type: Other causes of anemia: Chronic kidney disease stage : (2) Hip dislocation, left Qualifiers: Encounter type:
[2018-09-01] MEDS: LORazepam 1 MG Tablet PO PRN (21:49)
[2018-09-02] MEDS: Morphine Sulfate Inj 2 MG/ML Vial IV.PUSH PRN ×2 (03:53→07:51)
--- NOTE | 2018-09-02 09:20 | P.DS ---
Date of admission: 08/31/18 01:55 Primary care physician: Otto Gilbert MD Attending physician on discharge: Orion Barber Anticipated date of discharge: 09/02/18 Brief History from admission: This is a 53-year-old female with a PMH of Anxiety, Depression, MS, Chronic Pain , Narcotic Dependence and Recurrent Falls who was brought to the ER by EMS after fall w/ c/o left hip pain. Pt w/ previous Left WALTER 08/14/[address] Hurd , admitted 08/20-08/25/18 after fall w/ dislocation of left hip prosthesis, s/p Left WALTER Reduction 08/20/18 and Left WALTER Revision by Dr. Hurd 08/21/18. Had episode of anemia during hospitalization requiring transfusion, and was started on ASA for anticoagulation due to h/o previous hematoma, ultimately d/c'd to SNF per records, however per EMS, pt picked up at [facility] after fall. Pt had gotten up and walked herself to the couch w/ her walker, but notes persistent pain. On arrival, BP 114/59, HR 98, O2 sat 100% on RA, Afebrile. Hemoglobin 8.8, PC 9.0 on 08/23/2018. Chemistry unremarkable. UA negative for UTI. Urine Drug Screen positive for Opiates and Benzos. Alcohol negative. CT Head/C-spine with no acute findings. Left Hip X- ray with posterior/superior dislocation of left hip arthroplasty, no fracture, s /p successful reduction of left hip by ER physician. Pt to be d/c'd, however significant gait instability upon ambulation requiring assistance, Case Management recommendation for admission w/ PT/OT to attempt placement. Patient update on day of discharge: The patient reports her left hip pain is fairly well controlled. She has been getting up to bedside commode. She has no other new medical complaints including no fever/chills, headache, lightheadedness, chest pain, shortness of breath, or abdominal complaints. Discussed recommendations to go to rehab. The patient is currently refusing rehab, wants to try to go home again with home health care. She states if she does not do well at home with home health care, she would then agree to rehab placement. She is hoping that we can arrange rehab as a backup plan in case she does not do well at home. She states she also would not want to stay in the hospital to await authorization from her insurance company for rehab. Patient denies any other medical complaints at this time. Discussed following up with her orthopedic surgeon Dr. Hurd, patient verbalized understanding. DS: Diagnosis - Discharge Diagnosis (1) Hip dislocation, left Status: Acute DS: Summary Hospital Course: Patient is a 53-year-old female with a past medical history of anxiety , depression, MS, chronic pain, narcotic dependence and frequent falls who was brought to the ER by EMS after a fall with complaint of left hip pain. Pt w/ previous Left WALTER 08/14/[address] Hurd, admitted 08/20-08/25/18 after fall w/ dislocation of left hip prosthesis, s/p Left WALTER Reduction 08/20/18 and Left WALTER Revision by Dr. Hurd 08/21/18. She was admitted to observation again on for recurrent falls and hip dislocation. Dislocation was successfully reduced in the ER upon arrival. Pt w/ h/o chronic pain, chronic narcotic/benzo dependence, per review of records, concern for misuse/overmedication leading to recurrent falls. UDS +opiates and benzo. Limit narcotics. PT recommending rehab, case management was attempting to arrange this however awaiting insurance authorization. Patient then decided she does not want to wait any longer for rehab placement and authorization from insurance company. She requested to be discharged with [facility], and would agree to rehab in the near future if she does not do well at home. Discussed with case management, [id number] signed and submitted incase patient fails [facility] after this admission. Stable for discharge. - Time Spent with Patient Total time spent providing and/or coordinating discharge services: Greater than 30 minutes - Quality: VTE Deep Vein Thrombosis/Pulmonary Embolism Present on Admission: No Exam Vital signs: Vital Signs 09/01/18 11:45 09/01/18 15:05 09/01/18 20:00 Temperature 97.9 F 99 F 98.2 F Pulse Rate 89 93 H 95 H Respiratory Rate 20 20 17 Blood Pressure 123/60 118/60 120/65 Pulse Oximetry 97 97 97 09/01/18 20:35 09/02/18 00:00 09/02/18 04:00 Temperature 98.4 F 98.6 F Pulse Rate 91 H 96 H Respiratory Rate 16 17 16 Blood Pressure 132/65 106/56 L Pulse Oximetry 97 98 09/02/18 08:00 Temperature 98.1 F Pulse Rate 93 H Respiratory Rate 16 Blood Pressure 131/74 Pulse Oximetry 97 Intake & Output 09/01/18 09/02/18 09/02/18 18:59 06:59 18:59 Intake Total 720 / 720 960 / 960 Output Total Balance 714 / 714 960 / 960 Intake: Oral 720 / 720 960 / 960 Output: Urine Other: # Voids 3 Date of Last Bowel Movement 08/31/18 Narrative: GENERAL: Well-nourished, well-developed middle aged female patient in NAD. SKIN: Warm and dry. No rash. HEENT: Normocephalic. Atraumatic. Pupils equal and round. Mucous membranes pink and moist. CARDIOVASCULAR: Regular rate and rhythm. No murmur appreciated. RESPIRATORY: No accessory muscle use. Clear to auscultation. Breath sounds equal bilaterally. GASTROINTESTINAL: Abdomen soft, non-tender, nondistended. Normoactive bowel sounds x4. MUSCULOSKELETAL: No obvious deformities. Extremities without clubbing, cyanosis , or edema. Left lateral hip with surgical dressing in place, CDI. NEUROLOGICAL: Awake and alert. No obvious cranial nerve deficits. Moving all extremities spontaneously. Normal speech. PSYCHIATRIC: Appropriate mood and affect; insight and judgment normal. Results Procedures completed during hospitalization: Closed left hip reduction in the ER on 08/30. - Impressions ITS Impressions Cervical Spine CT 08/30/18 21:15 CONCLUSION: 1. Postsurgical findings and C5-6 and C7-T1. 2. Multilevel degenerative findings with neural foraminal narrowing at multiple levels. 3. No evidence of fracture. Head CT 08/30/18 21:15 CONCLUSION: No acute intracranial findings. . Hip X-Ray 08/30/18 22:26 CONCLUSION: Interim reduction of the previously seen left hip arthroplasty dislocation. Discharge Plan - Discharge Disposition Patient Disposition: W/Home Health Service - Discharge Condition Condition: Good - Discharge Order Discharge Orders: Discharge Order (Routine); Ordered 09/02/18 Ordered By: Edel Cage - Discharge Details Anticipated Discharge Date: 09/02/18 - Physicians Team Primary Care Provider: Otto Gilbert Attending Provider: Orion Barber Other Providers: [employer]
--- NOTE | 2018-09-02 09:22 | P.DCO ---
- Diagnosis (1) Hip dislocation, left Status: Acute (2) Recurrent falls Status: Acute (3) Fracture of femur Status: Acute (4) Fall with injury Status: Acute - Physical Therapy Order: Evaluate and treat, Improve ambulation, Strength and gait training - Home Health Nursing Order: Medical education, Signs/symptoms of disease process - Case Management Consult Case Management Consult-Home Health: Yes - Certification I have seen patient Sheela Zavala on 09/02/18. My clinical findings support the need for the requested home health care services because: Deconditioned with increased weakness, High risk of falls I certify that my clinical findings support that this patient is homebound because: Unsteady gait/balance, Unsafe to leave home unassisted, Unable to use public transportation (3) Fracture of femur Qualifiers: Encounter type: subsequent encounter
[2018-09-02] MEDS: Benztropine 2 MG Tablet PO SCH (10:02)
[2018-09-02] MEDS: Senna/Docusate Sodium 8.6/50 MG Tablet PO SCH (10:02)
[2018-09-02] MEDS: buPROPion 150 MG XL 24 HR Tablet PO SCH (10:06)
[2018-09-02] MEDS: FLUoxetine 20 MG Capsule PO SCH (10:06)
[2018-09-02] MEDS: Folic Acid 1 MG Tablet PO SCH (10:07)
[2018-09-02] MEDS: Multivitamin/Minerals Therapeutic Tablet PO SCH (10:07)
== END 2018-09-02 12:45 | disposition home health service (06) ==
LOC: NEPE 20:20 → NEDA 20:20 → NEPHCDU 08-31 03:15
PROVIDERS: ADMIT Hospitalist; ATTEND Hospitalist